=== PATIENT | female | born 1940 | race Caucasian/White ===

== ENCOUNTER 2019-07-19 21:25 | Inpatient (IN) | payer OTHER, BC ==
--- NOTE | 2019-07-19 21:35 | PDOC ---
History of Present Illness - General Stated Complaint: HIP INJURY Time Seen by Provider: 07/19/19 21:34 - History of Present Illness Initial Comments: 07/19/19 22:50 79y/o F hx of HTN, chronic pain, lumbar stenosis, osteoporosis presents to the ER after a fall around 8pm this evening. She was going down the stairs when she slipped on the last stair and fell to the floor on her left side. She reports pain in her left buttock. Pain is exacerbated by movement and relieved with lying still. She did not ambulate after the event, and reports that was due to pain. She is unsure if she hit her head. but there was no LOC. She was brought in by EMS. She dizziness or lightheadedness preceding the event. After event, denies any nausea, vomiting,bowel or bladder incontinence, headache, numbness, tingling or spinal tenderness. Past History - Past Medical History Allergies/Adverse Reactions: Allergies Allergy/AdvReac Type Severity Reaction Status Date / Time No Known Allergies Allergy Verified 07/19/19 21:53 Home Medications: Ambulatory Orders Cholestyramine/Aspartame [Cholestyramine Light Packet] 4 gm PO DAILY 07/20/19 Cyclobenzaprine HCl 10 mg PO TID 07/20/19 Hydrochlorothiazide 50 mg PO DAILY 07/20/19 Hydrocodone/Acetaminophen [[place] 5-325 Tablet] 1 each PO QID PRN 07/20/19 Lisinopril [Prinivil] 10 mg PO DAILY 07/20/19 Meclizine HCl 12.5 mg PO TID 07/20/19 Metoprolol Succinate [Toprol Xl] 25 mg PO DAILY 07/20/19 Raloxifene HCl 60 mg PO DAILY 07/20/19 Rosuvastatin Calcium [Crestor] 5 mg PO DAILY 07/20/19 Zolpidem Tartrate 10 mg PO HS 07/20/19 Review of Systems - Review of Systems Constitutional: No: Chills, Fever HEENTM: No: Eye Pain, Blurred Vision Respiratory: No: Cough, Shortness of Breath Cardiac (ROS): No: Chest Pain, Lightheadedness ABD/GI: No: Nausea, Vomiting : No: Burning, Dysuria Musculoskeletal: Yes: Joint Pain, Muscle Pain Integumentary: No: Bruising, Change in Color Neurological: No: Headache, Numbness Hematologic/Lymphatic: No: Blood Clots, Easy Bleeding *Physical Exam - Physical Exam Comments: 07/19/19 23:17 GENERAL: Awake, alert, and fully oriented,uncomfortable HEAD: No signs of trauma, normocephalic, atraumatic EYES: PERRLA, EOMI, sclera anicteric, conjunctiva clear ENT: Auricles normal inspection, hearing grossly normal, nares patent, oropharynx clear without exudates. Moist mucosa NECK: Normal ROM, supple, no lymphadenopathy, JVD, or masses LUNGS: No distress, speaks full sentences, clear to auscultation bilaterally HEART: Regular rate and rhythm, normal S1 and S2, no murmurs, rubs or gallops, peripheral pulses normal and equal bilaterally. ABDOMEN: Soft, nontender, normoactive bowel sounds. No guarding, no rebound. No masses EXTREMITIES : Normal inspection,both lower extremities the same length. pelvis stable. tenderness to palpation of left buttock . Rectal tone present, no perianal anesthesia. peripheral pedal pulses bilaterally. sensation intact. straight leg raise more difficult on left side. NEUROLOGICAL: Cranial nerves II through XII grossly intact. Normal speech, SKIN: Warm, Dry, normal turgor, no rashes or lesions noted ED Treatment Course - LABORATORY CBC & Chemistry Diagram: 07/20/19 02:10 07/20/19 02:10 Medical Decision Making - Medical Decision Making 07/19/19 22:58 79y/o F hx of HTN, chronic pain, lumbar stenosis, osteoporosis presents to the ER after a fall around 8pm this evening. likely mechanical fall. pt. unsure of head strike. evaluate for possible fracture as well as hemorrhage on head CT. Ct head and c-spine w/o contrast hip,pelvis and femur x-ray Lidoderm patch for buttock pain. 07/20/19 00:11 PT signed out to Dr. Montes hip and pelvis x-rays reviewed, no obvious fracture noted (official read pending ) CT pending. reevaluate pain and patients ability to go home. 07/20/19 12:17 Discharge - Discharge Information Problems reviewed: Yes Clinical Impression/Diagnosis: Fall (on) (from) other stairs and steps, initial encounter, Fracture of pubic ramus, Inability to ambulate due to hip Condition: Stable - Admission No - Follow up/Referral - Patient Discharge Instructions - Post Discharge Activity
--- NOTE | 2019-07-19 21:46 | PDOC ---
Attending Attestation - Resident Resident Name: Erin Moss - ED Attending Attestation I have performed the following: I have examined & evaluated the patient, The case was reviewed & discussed with the resident, I agree w/resident's findings & plan - HPI HPI: 07/19/19 23:06 Pt missed the last step at her daughter's home, and she fell onto her left hip; she has left posterior hip pain. This happened after dinner; she had eaten turkey. Pt doesn't recall hitting her head or neck, however she cannot be sure. Also she states that 2 years ago she had a kyphoplasty. Pt is afebrile. She is able to move all extremities. She has 4/5 weakness in her legs bilaterally. - Physicial Exam PE: 07/19/19 23:13 Pt has normal heart and lung exam. Abd soft NT ND No tenderness with palpation over her pubic bone She has pain at the left hip She has mild pain with ranging her left leg at the hip - Medical Decision Making 07/20/19 00:20 Patient Name: JACINTA VICENTE THIS IS A PRELIMINARY REPORT FROM [facility] DATE OF SERVICE: 2019-07-19 23:00:26 IMAGES: 4 EXAM: X-RAY LEFT HIP Acute minimally displaced fractures left inferior and superior pubic rami. Left femoral neck evaluation somewhat limited by artifact from overlying clothing/drapery. No dislocation. 07/20/19 00:51 If pt can ambulate, we will send her home with her daughter and . If she cannot, we will admit. Head CT and ct cervical spine are pending. 07/20/19 01:30 Patient Name: JACINTA VICENTE THIS IS A PRELIMINARY REPORT FROM [facility] DATE OF SERVICE: 2019-07-20 00:38:26 IMAGES: [id number] EXAM: CT CERVICAL SPINE WITHOUT CONTRAST No acute fracture or traumatic malalignment. Multilevel spondylosis. Straightening of cervical lordosis, possibly due to positioning or muscle spasm. Scarring lung apices 07/20/19 01:31 Patient Name: JACINTA VICENTE THIS IS A PRELIMINARY REPORT FROM [facility] DATE OF SERVICE: 2019-07-20 00:45:11 IMAGES: [id number] EXAM: CT HEAD WITHOUT CONTRAST No acute hemorrhage, mass or acute territorial infarct. Atrophy and chronic small vessel ischemic changes. No skull fracture. Clear visualized paranasal sinuses. Visualized mastoid air cells chirag 07/20/19 01:44 Pt unable to abduct her left leg; she is having pain in the posterior hip; pt is unable to get up ; far from being able to ambulate. Pt will be admitted for further eval by ortho, and she may require further imaging of her hip 07/20/19 01:45 Pt is complaining about urinary bladder "spasm" she cannot use a bedpan and she is requesting a ramirez catheter.
[2019-07-19] MEDS ORDERED: LIDOCAINE 5% TOPICAL PATCH TP ONE (22:41)
[2019-07-19] MEDS ORDERED: LIDOCAINE 5% TOPICAL PATCH ONE (22:56)
[2019-07-19] MEDS: LIDOCAINE PATCH REMOVAL MC SCH (22:59)
--- NOTE | 2019-07-20 00:08 | PDOC ---
*Physical Exam - Vital Signs Last Vital Signs Temp Pulse Resp BP Pulse Ox 98.3 F 96 H 18 118/62 98 07/19/19 21:48 07/19/19 21:48 07/19/19 21:48 07/19/19 21:48 07/19/19 21:48 ED Treatment Course - LABORATORY CBC & Chemistry Diagram: 07/20/19 02:10 07/20/19 02:10 - Medications Given in the ED: ED Medications Discontinued Medications Generic Name Dose Route Start Last Admin Trade Name Freq PRN Reason Stop Dose Admin Lidocaine 1 patch 07/19/19 22:41 07/19/19 22:59 Lidoderm Patch - TP 07/19/19 22:42 1 patch ONCE ONE Administration Medical Decision Making - Medical Decision Making 07/20/19 00:04 79yo F hx HTN, chronic back pain, lumbar stenosis, osteoporosis, frequent falls on chronic vicodin and ambien, presents to the ER after mechanical fall at approx 2000 today. Neurologically intact, extremities neurovascularly intact, no s/s of syncope or seizure, no midline TTP, unable to ambulate (baseline ambulates w/o assistance). Pending XRs L femur/pelvis/hips, CTH/c-spine and pain management with lidoderm patch on buttocks (already took 4 percocets today PRN for chronic pain) and ambulation test > dispo. PCP - in [place] ([place]). Pt seen and assessed at bedside. 07/20/19 00:53 Official reads XRs: Acute minimally displaced fractures left inferior and superior pubic rami. Left femoral neck evaluation somewhat limited by artifact from overlying clothing/drapery. No dislocation. Pt in CT. 07/20/19 01:49 CTH/c-spine reviewed: no acute pathology Unable to get up or ambulate. In pain. Will admit for fx, pain control, and inability to ambulate. May need ortho eval and/or further imaging. Microblog sent. 07/20/19 01:56 Signed out to admitting team. Admission orders (labs, EKG) placed. Discharge - Discharge Information Problems reviewed: Yes Clinical Impression/Diagnosis: Fall (on) (from) other stairs and steps, initial encounter, Fracture of pubic ramus, Inability to ambulate due to hip Condition: Stable - Admission Yes - Follow up/Referral - Patient Discharge Instructions - Post Discharge Activity
[2019-07-20] MEDS ORDERED: SODIUM CHLORIDE 0.9% 500 ML INFUS.BAG IV ONE (01:50)
--- NOTE | 2019-07-20 02:11 | HP ---
CHIEF COMPLAINT: Hip Fracture HISTORY OF PRESENT ILLNESS: This is a 79 y/o woman w/ HTN, chronic back pain, lumbar stenosis, osteoporosis, frequent falls (last one in 2017 requiring vertebroplasty sx), on chronic opiates and ambien presented to hospital s/p witnessed mechanical fall at her daughters house after their thanksgiving meal, at approximately 8:00pm. Pt states she missed a step and fell on her hip due to not wearing her glasses. She now has left buttock pain and bladder spasms, so much that she requires a ramirez because she failed bed meyers trial. Pt notes having a hx of not being able to tolerate statins due to myalgia and that her leg cramps she experiences responds to tonic water with quinidine. In the emergency room, pt's extremities were reported to be neurovascularly intact. ER course was notable for: (1)Acute minimally displaced fractures left inferior and superior pubic rami. Left femoral neck evaluation somewhat limited by artifact from overlying clothing/drapery. No dislocation. (2) CT c-spine: no acute pathology (3) wbc-12.5 Social History: Smoking: denies Alcohol:denies Drugs: denies Allergies: No Known Allergies Allergy (Verified 07/19/19 21:53) REVIEW OF SYSTEMS: Negative except whats in HPI PHYSICAL EXAMINATION: Vital Signs - 24 hr 07/19/19 21:48 Temperature 98.3 F Pulse Rate 96 H Respiratory 18 Rate Blood Pressure 118/62 O2 Sat by Pulse 98 Oximetry (%) GENERAL: Awake, alert, and fully oriented, in no acute distress. LUNGS: Breath sounds equal, clear to auscultation bilaterally. No wheezes, and no crackles. No accessory muscle use. HEART: Regular rate and rhythm, normal S1 and S2 without murmur, rub or gallop. ABDOMEN: Soft, nontender, not distended, normoactive bowel sounds, no guarding, no rebound, no masses. No hepatomegaly or splenomegaly. LOWER EXTREMITIES: Rt butock tenderness, pt unable to move either lower extremity much in any direction due to pain, 2+ pulses, warm, well-perfused. No calf tenderness. No peripheral edema. PSYCHIATRIC: Cooperative. Good eye contact. Appropriate mood and affect. SKIN: Warm, dry, normal turgor, no rashes or lesions noted. ASSESSMENT/PLAN: This is a 79 y/o woman w/ HTN, chronic back pain, lumbar stenosis, osteoporosis , frequent falls (last one in 2017 requiring vertebroplasty sx), on chronic opiates and ambien presented to hospital s/p witnessed mechanical fall at her daughters house after their thanksgiving meal, at approximately 8:00pm. #Pubic rami fracture 2/2 witnessed fall - doubt syncope/vasovagal/orthostatic - Pelvic XR- Acute minimally displaced fractures left inferior and superior pubic rami. Left femoral neck evaluation somewhat limited by artifact from overlying clothing/drapery. No dislocation. - CT pelvis ordered due to pt complaining of pain in her left buttock. - CT c-spine reviewed: no acute pathology - Bedrest and fall precautions - Tylenol p.o. as needed for pain -Orthopedics consulted (Dr. Corral) for repair of fractures. - Physical therapy evaluation for gait assessment - Would hold opiates and benzos at this time - Futile to check orthostatics given fluids administered #Leukocytosis 2/2 fall coupled with it being reactive - afebrile, pt did endorse increased frequency and urgency so possible UTI however pt is on a high dose of diuretic - Monitor WBC off antibiotics at this time - UA culture and CXR to assess for source of infection - UA pending - will rpt it and assess - Heparin 5K TID SQ for DVT prophylaxis Visit type - Emergency Visit Emergency Visit: Yes ED Registration Date: 07/20/19 Care time: The patient presented to the Emergency Department on the above date and was hospitalized for further evaluation of their emergent condition. - New Patient This patient is new to me today: Yes Date on this admission: 07/22/19 - Critical Care Critical Care patient: No ATTENDING PHYSICIAN STATEMENT I saw and evaluated the patient. I reviewed the resident's note and discussed the case with the resident. I agree with the resident's findings and plan as documented. SUBJECTIVE: OBJECTIVE: ASSESSMENT AND PLAN:
[2019-07-20 02:18] LABS: BASO % 0.7 % (0-2.0); EOS % 0.2 % (0-4.5); HEMATOCRIT 32.4 % (32.4-45.2); HEMOGLOBIN 10.9 GM/dL (10.7-15.3); LYMPH % 7.8 % (8-40); MCH 33.4 pg (25.7-33.7); MCHC 33.7 g/dl (32.0-36.0); MEAN CELL VOLUME 99.2 fl (80-96); MEAN PLT VOLUME 6.8 fl (7.5-11.1); MONO % 5.7 % (3.8-10.2); NEUT % 85.6 % (42.8-82.8); PLATELET COUNT 219 K/MM3 (134-434); RBC 3.27 M/mm3 (3.60-5.2); RDW 14.1 % (11.6-15.6); WHITE BLOOD COUNT 12.5 K/mm3 (4.0-10.0)
[2019-07-20 02:37] LABS: ALBUMIN 3.4 g/dl (3.4-5.0); BILIRUBIN,TOTAL 0.1 mg/dL (0.2-1); BLOOD UREA NITROGEN 26.2 mg/dL (7-18); CALCIUM 8.7 mg/dL (8.5-10.1); CREATININE 1.1 mg/dL (0.55-1.3); POTASSIUM 3.8 mmol/L (3.5-5.1); TOT PROT 5.9 g/dl (6.4-8.2)
--- NOTE | 2019-07-20 03:35 | PN ---
Teaching Attending Note Name of Resident: Michael Herrera ATTENDING PHYSICIAN STATEMENT I saw and evaluated the patient. I reviewed the resident's note and discussed the case with the resident. I agree with the resident's findings and plan as documented. SUBJECTIVE: 79yo woman w/ HTN, chronic back pain, lumbar stenosis, osteoporosis, frequent falls, on chronic opiates and ambien presented to hospital after mechanical fall which occurred at approximately 2000 hrs. on 07/19/2019. Patient reported that she was climbing a flight of stairs and she missed one step and fell and landed on her buttocks. Denied any head trauma or LOC. OBJECTIVE: Last Vital Signs Temp Pulse Resp BP Pulse Ox 98.3 F 96 H 18 118/62 98 07/19/19 21:48 07/19/19 21:48 07/19/19 21:48 07/19/19 21:48 07/19/19 21:48 GENERAL: well nourished. Awake and alert. No acute distress. Frail, elderly HEENT: Normocephalic, atraumatic. PERRLA, EOMI. No conjunctival pallor. Sclera are non- icteric. Moist mucous membranes. Oropharynx is clear. NECK: Supple. Full ROM. No JVD. Carotid pulses 2+ and symmetric, without bruits. No thyromegaly. No lymphadenopathy. CARDIOVASCULAR: Regular rate and rhythm. No murmurs, rubs, or gallops. Distal pulses are 2+ and symmetric. PULMONARY: No evidence of respiratory distress. Lungs clear to auscultation bilaterally. No wheezing, rales or rhonchi. ABDOMINAL: Soft. Non-tender. Non-distended. No rebound or guarding. No organomegaly. Normoactive bowel sounds. MUSCULOSKELETAL Normal range of motion at all joints. No bony deformities or tenderness. No CVA tenderness. EXTREMITIES: No cyanosis. No clubbing. No edema. No calf tenderness. Lower extremities bilaterally are warm and sensation is grossly intact SKIN: Warm and dry. Normal capillary refill. No rashes. No jaundice. NEUROLOGICAL: Alert, awake, appropriate. Cranial nerves 2-12 intact. No deficits to light touch and temperature in face, upper extremities and lower extremities. No motor deficits in the in face, upper extremities and lower extremities. Normoreflexic in the upper and lower extremities. Normal speech. Toes are down- going bilaterally. Gait is normal without ataxia. PSYCHIATRIC: Cooperative. Good eye contact. Appropriate mood and affect. Abnormal Lab Results 07/20/19 07/20/19 02:10 02:10 WBC 12.5 H RBC 3.27 L MCV 99.2 H MPV 6.8 L Absolute Neuts (auto) 10.7 H Neutrophils % 85.6 H Lymphocytes % 7.8 L Anion Gap 5 L BUN 26.2 H Random Glucose 142 H Total Bilirubin 0.1 L Alkaline Phosphatase 28 L Total Protein 5.9 L Imaging reviewed Official reads XRs: Acute minimally displaced fractures left inferior and superior pubic rami. Left femoral neck evaluation somewhat limited by artifact from overlying clothing/drapery. No dislocation. CT -H/c-spine reviewed: no acute pathology ASSESSMENT AND PLAN: 79-year-old woman status post fall with acute minimally displaced fractures left inferior and superior pubic rami. Unable to ambulate at this time. Suspect that frequent falls may be secondary to Worsening of underlying spinal stenosis versus Versus mechanical fall versus taking opiates and benzos chronically especially given her advanced age would make her more susceptible to the sedatives, increased ataxia and risk for falls. MedSurg Bedrest and fall precautions Tylenol p.o. as needed for pain Pelvis CT to ensure no occult fractures have been missed Orthopedics evaluation for rami fractures Physical therapy evaluation for gait assessment Would stop opiates and benzos at this time Check orthostatics Follow-up official reads for imaging studies performed in ER including head CT, hip and pelvis x-ray, femur x-ray. #Leukocytosismay be secondary to fall and may be reactive Monitor WBC off antibiotics at this time Heparin subcutaneously for DVT prophylaxis
[2019-07-20] MEDS ORDERED: ACETAMINOPHEN 325 MG TABLET (FP) PO PRN (03:50)
[2019-07-20] MEDS ORDERED: HEPARIN NA (PORCINE) 5,000 UNITS/ML 1ML VIAL SQ SCH (06:00)
[2019-07-20] MEDS ORDERED: HEPARIN NA (PORCINE) 5,000 UNITS/ML 1ML VIAL ONE (06:25)
[2019-07-20 07:12] LABS: URINE APPEARANCE CLEAR; URINE BILIRUBIN NEGATIVE (NEGATIVE); URINE COLOR YELLOW; URINE GLUCOSE (UA) NEGATIVE (NEGATIVE); URINE KETONE NEGATIVE (NEGATIVE); URINE LEUK ESTERASE NEGATIVE (NEGATIVE); URINE NITRITE NEGATIVE (NEGATIVE); URINE PROTEIN NEGATIVE (NEGATIVE); URINE UROBILINOGEN 0.2 mg/dL (0.2-1.0)
[2019-07-20] MEDS ORDERED: HYDROCHLOROTHIAZIDE 50 MG TABLET PO SCH (10:00)
[2019-07-20] MEDS ORDERED: ENOXAPARIN NA (PORCINE) 40 MG/0.4 ML DISP.SYRIN SQ SCH (10:00)
[2019-07-20] MEDS: metoPROLOL SUCCINATE 25 MG TAB.SR.24H (FP) PO SCH (10:20)
[2019-07-20] MEDS: LISINOPRIL 10 MG TABLET (FP) PO SCH (10:20)
[2019-07-20] MEDS ORDERED: [UNRECOGNIZED DRUG - OTHER] PO PRN (10:36)
[2019-07-20] MEDS ORDERED: ACETAMINOPHEN PO PRN (10:36)
[2019-07-20] MEDS ORDERED: HYDROCODONE PO PRN (10:36)
[2019-07-20] MEDS ORDERED: ACETAMINOPHEN 325 MG TABLET (FP) ONE (12:58)
[2019-07-20] MEDS ORDERED: oxyCODONE HCL 5 MG TABLET ONE (12:59)
--- NOTE | 2019-07-20 13:05 | PN ---
Physical Exam: SUBJECTIVE: Patient seen and examined at the bedside. States that she has pain in her left hip but otherwise in good spirits. Denied any prodromal symptoms before her fall, no diaphoresis, chest pain, palpitations, lightheadedness, dizziness, visual changes. Currently denies cp, sob, abd pain, n/v/c/d, fever, chills. OBJECTIVE: Vital Signs Period Temp Pulse Resp BP Sys/Martinez Pulse Ox Last 24 Hr 98 F-98.3 F 96-113 18-18 109-118/62-75 98-99 GENERAL: The patient is awake, alert, and fully oriented, in no acute distress. HEAD: Normal with no signs of trauma. EYES: PERRL, extraocular movements intact, sclera anicteric, conjunctiva clear. No ptosis. NECK: Trachea midline, full range of motion, supple. LUNGS: Breath sounds equal, clear to auscultation bilaterally, no wheezes, no crackles, no accessory muscle use. HEART: Regular rate and rhythm, S1, S2 without murmur, rub. ABDOMEN: Soft, nontender, nondistended, normoactive bowel sounds, no guarding, no rebound, no masses. EXTREMITIES: 2+ pulses, warm, well-perfused, no edema. NEUROLOGICAL: Cranial nerves II through XII grossly intact. Decreased strength on the LLE in flexion/extension, rotation, secondary to pain. No sensory deficits. PSYCH: Normal mood, normal affect. SKIN: Warm, dry, normal turgor, no rashes or lesions noted Laboratory Results - last 24 hr 07/20/19 07/20/19 07/20/19 02:10 02:10 06:30 WBC 12.5 H RBC 3.27 L Hgb 10.9 Hct 32.4 MCV 99.2 H MCH 33.4 MCHC 33.7 RDW 14.1 Plt Count 219 MPV 6.8 L Absolute Neuts (auto) 10.7 H Neutrophils % 85.6 H Lymphocytes % 7.8 L Monocytes % 5.7 Eosinophils % 0.2 Basophils % 0.7 Nucleated RBC % 0 Sodium 140 Potassium 3.8 Chloride 107 Carbon Dioxide 28 Anion Gap 5 L BUN 26.2 H Creatinine 1.1 Est GFR (CKD-EPI)AfAm 56.08 Est GFR (CKD-EPI)NonAf 48.39 Random Glucose 142 H Calcium 8.7 Total Bilirubin 0.1 L AST 25 ALT 27 Alkaline Phosphatase 28 L Total Protein 5.9 L Albumin 3.4 Urine Color Yellow Urine Appearance Clear Urine pH 5.0 Ur Specific [place]joy 1.014 Urine Protein Negative Urine Glucose (UA) Negative Urine Ketones Negative Urine Blood Negative Urine Nitrite Negative Urine Bilirubin Negative Urine Urobilinogen 0.2 Ur Leukocyte Esterase Negative Active Medications Generic Name Dose Route Start Last Admin Trade Name Freq PRN Reason Stop Dose Admin Acetaminophen 650 mg 07/20/19 03:50 Tylenol - PO Q6H PRN Fever Acetaminophen 325 mg 07/20/19 10:47 Tylenol - PO Q6H PRN PAIN 1-5 Cholestyramine Resin 4 gm 07/21/19 10:00 Questran Light Packet - PO DAILY NINA Cyclobenzaprine HCl 10 mg 07/20/19 03:57 Flexeril - PO TID PRN MUSCLE SPASMS Heparin Sodium (Porcine) 5,000 unit 07/20/19 06:00 07/20/19 06:46 Heparin - SQ 5,000 unit TID NINA Administration Lisinopril 10 mg 07/20/19 10:00 07/20/19 10:20 Prinivil PO 10 mg DAILY NINA Administration Meclizine HCl 12.5 mg 07/20/19 14:00 Antivert - PO TID NINA Metoprolol Succinate 25 mg 07/20/19 10:00 07/20/19 10:20 Toprol Xl - PO 25 mg DAILY NINA Administration Miscellaneous 1 each 07/19/19 22:00 07/19/19 22:59 Lidoderm Patch Removal MC 1 each DAILY@2200 NINA Administration Non-Formulary Medication 60 mg 07/20/19 10:00 Raloxifene Hcl [Raloxifene Hcl] PO DAILY NINA Oxycodone HCl 5 mg 07/20/19 10:47 Roxicodone - PO Q6H PRN PAIN 1-5 Rosuvastatin Calcium 5 mg 07/20/19 22:00 Crestor - PO HS NINA Zolpidem Tartrate 5 mg 07/20/19 22:00 Ambien - PO HS PRN INSOMNIA ASSESSMENT/PLAN: Connie Red is a 79 year old woman with a past medical history of HTN, chronic back pain, lumbar stenosis, osteoporosis, frequent falls (last one in 2017 requiring vertebroplasty sx), on chronic opiates and ambien admitted after witnessed mechanical fall resulting in L pubic ramus fracture. Pubic rami fracture - Pelvic XR- Acute minimally displaced fractures left inferior and superior pubic rami. Left femoral neck evaluation somewhat limited by artifact from overlying clothing/drapery. No dislocation. - CT pelvis showing a comminuted fracture through the medical portion of the L pubic ramus near the symphysis pubis and hyperdense soft tissue mass superior and to the right of the fracture suspicious for a hematoma - CT head and c-spine reviewed: no acute pathology - Bedrest and fall precautions - resume home oxycodone/tylenol for pain - Orthopedics consulted, Dr. Calvo for evaluation, recommending PT, weight bearing as tolerated, pain management, SNF placement, DVT prophylaxis (aspirin) for 6 weeks, and to follow up with orthopedist in 2 weeks - Physical therapy recommending continued PT at rehabilitation facility. Patient only able to ambulate 5ft. Leukocytosis - likely reactive to fall and fracture - afebrile, continue to monitor temp and WBC off abx - UA negative - CXR with no acute pathology HTN - resume home lisinopril, HCTZ, metoprolol HLD - resume home Crestor - continue home cholestyramine Chronic Back Pain - continue home pain medications and home flexeril DVT PPX - SCDs, stopped heparin due to hematoma Dispo - continue to monitor on Med-surg - will likely need SNF for rehab, patient wants to return back to [place] for SNF Visit type - Emergency Visit Emergency Visit: Yes ED Registration Date: 07/20/19 Care time: The patient presented to the Emergency Department on the above date and was hospitalized for further evaluation of their emergent condition. - New Patient This patient is new to me today: Yes Date on this admission: 07/20/19 - Critical Care Critical Care patient: No
[2019-07-20] MEDS: oxyCODONE HCL 5 MG TABLET PO PRN (13:15)
[2019-07-20] MEDS: ACETAMINOPHEN 325 MG TABLET (FP) PO PRN (13:16)
[2019-07-20] MEDS: MECLIZINE HCL 12.5 MG TABLET PO SCH ×2 (13:41→21:45)
--- NOTE | 2019-07-20 14:12 | EKG ---
Test Reason : Blood Pressure : / mmHG Vent. Rate : 102 BPM Atrial Rate : 102 BPM P-R Int : 130 ms QRS Dur : 078 ms QT Int : 338 ms P-R-T Axes : 063 -30 011 degrees QTc Int : 440 ms SINUS TACHYCARDIA POSSIBLE LEFT ATRIAL ENLARGEMENT INCOMPLETE RBBB NONSPECIFIC ST ABNORMALITY LEFT AXIS DEVIATION LOW VOLTAGE QRS ABNORMAL ECG NO PREVIOUS ECGS AVAILABLE Confirmed by CARO TREVINO MD ([id number]) on 07/20/2019 2:12:29 PM Referred By: Confirmed By:CARO TREVINO MD
--- NOTE | 2019-07-20 15:10 | PN ---
Progress Note (short form) - Note Progress Note: Pt seen and examined in the ER. She is a 79 year old female patient 1 day s/p fall at her daughter's home. She fell onto her buttocks, and c/o pain in the left hemipelvis area and groin, and cannot bear weight or ambulate. She is otherwise healthy. AVAA PE Pt in NAD. B/L LE are NVI, with good ROM and little pain at the foot, ankle, knees. Minimal pain with logrolling the left LE No swelling, no ecchymosis, appears quite benign Xrays Show a comminuted, left superior and inferior pubic rami fractures just lateral to the pubic symphysis Imp Acute. left pubic rami fractures Rec Physical therapy ESHA, WBAT B/L LE Pain management Likely DC to a SNF (in [place]) DVT prohylaxis for 6 weeks. She can be put on ASA 81mg daily once DC'd F/U with an orthopedist in 2 weeks
--- NOTE | 2019-07-20 17:37 | PN ---
Teaching Attending Note Name of Resident: Den Viramontes ATTENDING PHYSICIAN STATEMENT I saw and evaluated the patient. I reviewed the resident's note and discussed the case with the resident. I agree with the resident's findings and plan as documented. SUBJECTIVE: Complains of pelvic pain, worse on Left. No fever/chills/CP/SOB. Mechanical fall (missed a step, no HI/LOC) OBJECTIVE: Afebrile, hemodynamically Stable. Last Vital Signs Temp Pulse Resp BP Pulse Ox 98.9 F 103 H 18 88/60 L 98 07/20/19 16:43 07/20/19 16:43 07/20/19 16:43 07/20/19 16:43 07/20/19 16:43 HEENT - Atraumatic, Normocephalic. Heart - S1, S2, RRR Lungs - clear to auscultation Abdomen - Soft, non-tender. Bowel Sounds normal. Extremities - venous stasis, no calf tenderness, reduced ROM about L hip due to pain. Neurovascularly intact. Laboratory Results - last 24 hr 07/20/19 07/20/19 07/20/19 02:10 02:10 06:30 WBC 12.5 H RBC 3.27 L Hgb 10.9 Hct 32.4 MCV 99.2 H MCH 33.4 MCHC 33.7 RDW 14.1 Plt Count 219 MPV 6.8 L Absolute Neuts (auto) 10.7 H Neutrophils % 85.6 H Lymphocytes % 7.8 L Monocytes % 5.7 Eosinophils % 0.2 Basophils % 0.7 Nucleated RBC % 0 Sodium 140 Potassium 3.8 Chloride 107 Carbon Dioxide 28 Anion Gap 5 L BUN 26.2 H Creatinine 1.1 Est GFR (CKD-EPI)AfAm 56.08 Est GFR (CKD-EPI)NonAf 48.39 Random Glucose 142 H Calcium 8.7 Total Bilirubin 0.1 L AST 25 ALT 27 Alkaline Phosphatase 28 L Total Protein 5.9 L Albumin 3.4 Urine Color Yellow Urine Appearance Clear Urine pH 5.0 Ur Specific [place] 1.014 Urine Protein Negative Urine Glucose (UA) Negative Urine Ketones Negative Urine Blood Negative Urine Nitrite Negative Urine Bilirubin Negative Urine Urobilinogen 0.2 Ur Leukocyte Esterase Negative Current Medications Generic Name Dose Route Start Last Admin Trade Name Freq PRN Reason Stop Dose Admin Acetaminophen 650 mg 07/20/19 03:50 Tylenol - PO Q6H PRN Fever Acetaminophen 325 mg 07/20/19 10:47 07/20/19 13:16 Tylenol - PO 325 mg Q6H PRN Administration PAIN 1-5 Cholestyramine Resin 4 gm 07/21/19 10:00 Questran Light Packet - PO DAILY [facility] Cyclobenzaprine HCl 10 mg 07/20/19 03:57 Flexeril - PO TID PRN MUSCLE SPASMS Lisinopril 10 mg 07/20/19 10:00 07/20/19 10:20 Prinivil PO 10 mg DAILY NINA Administration Meclizine HCl 12.5 mg 07/20/19 14:00 07/20/19 13:41 Antivert - PO Not Given TID [facility] Metoprolol Succinate 25 mg 07/20/19 10:00 07/20/19 10:20 Toprol Xl - PO 25 mg DAILY NINA Administration Miscellaneous 1 each 07/19/19 22:00 07/19/19 22:59 Lidoderm Patch Removal MC 1 each DAILY@2200 [facility] Administration Non-Formulary Medication 60 mg 07/20/19 10:00 Raloxifene Hcl [Raloxifene Hcl] PO DAILY [facility] Oxycodone HCl 5 mg 07/20/19 10:47 07/20/19 13:15 Roxicodone - PO 5 mg Q6H PRN Administration PAIN 1-5 Rosuvastatin Calcium 5 mg 07/20/19 22:00 Crestor - PO HS NINA Zolpidem Tartrate 5 mg 07/20/19 22:00 Ambien - PO HS PRN INSOMNIA Home Medications Medication Instructions Recorded Aspirin 81 mg PO DAILY #42 tab.chew 07/20/19 Cholestyramine/Aspartame 4 gm PO DAILY 07/20/19 [Cholestyramine Light Packet] Cyclobenzaprine HCl 10 mg PO TID 07/20/19 Hydrochlorothiazide 50 mg PO DAILY 07/20/19 Hydrocodone/Acetaminophen [[place] 1 each PO QID PRN 07/20/19 5-325 Tablet] Lisinopril [Prinivil] 10 mg PO DAILY 07/20/19 Meclizine HCl 12.5 mg PO TID 07/20/19 Metoprolol Succinate [Toprol Xl] 25 mg PO DAILY 07/20/19 Raloxifene HCl 60 mg PO DAILY 07/20/19 Rosuvastatin Calcium [Crestor] 5 mg PO DAILY 07/20/19 Zolpidem Tartrate 10 mg PO HS 07/20/19 ASSESSMENT AND PLAN: 79 year old female with chronic back pain, lumbar stenosis, osteoporosis, frequent falls, on chronic opiates and ambien presents after mechanical fall, missing a step and landing on her hip. No head injury/LOC. No preceding CP/ palpitations/lightheadedness. Hip XR - Acute minimally displaced fractures left inferior and superior pubic rami. Left femoral neck evaluation somewhat limited by artifact from overlying clothing/drapery. No dislocation. CT Head - no acute intracranial findings CT C Spine - no bony inury, DJD. CT Pelvis - comminuted fractures through pubic ramus/pubis symphysis, possible associated hematoma. 1. Acute Pelvic Fractures s/p mechanical fall Seen by Ortho - recommend PT, WBAT, DVT Px 6 weeks, Ortho follow up 2 weeks. resumd on home oxycodone regimen. PT Discussed with CM re:SNF/Acute Rehab placement. 2. HTN - Hold HCTZ - can lead to orthostasis and falls in the elderly. Continue Metoprolol, Lisinopril 3. HLD - on Crestor. 4. Chronic Back Pain - on opiates chronically along with Flexeril and Zolpidem. DVT Px - SCDs for now given possible hematoma on CT. Will discuss DVT Px regimen with Ortho.
[2019-07-20] MEDS: LIDOCAINE PATCH REMOVAL MC SCH (21:44)
[2019-07-20] MEDS: ROSUVASTATIN CA 5 MG TABLET (FP) PO SCH (21:44)
[2019-07-21] MEDS: ZOLPIDEM TARTRATE 5 MG TABLET PO PRN ×2 (01:40→21:10)
[2019-07-21] MEDS: MECLIZINE HCL 12.5 MG TABLET PO SCH ×3 (06:31→21:11)
[2019-07-21] MEDS: ACETAMINOPHEN 325 MG TABLET (FP) PO PRN ×2 (08:08→16:17)
[2019-07-21] MEDS: oxyCODONE HCL 5 MG TABLET PO PRN ×2 (08:08→16:18)
[2019-07-21] MEDS ORDERED: PT OWN MED DRAWER 7, Y5N ONE (10:10)
[2019-07-21] MEDS: CYCLOBENZAPRINE HCL 10 MG TABLET (FP) PO PRN (10:20)
[2019-07-21] MEDS: LISINOPRIL 10 MG TABLET (FP) PO SCH (10:23)
[2019-07-21] MEDS: metoPROLOL SUCCINATE 25 MG TAB.SR.24H (FP) PO SCH (10:23)
[2019-07-21] MEDS: CHOLESTYRAMINE/ASPARTAME 4 GM PACKET PO SCH (10:28)
[2019-07-21 11:26] LABS: BASO % 0.1 % (0-2.0); EOS % 0.5 % (0-4.5); LYMPH % 12.2 % (8-40); MCH 33.1 pg (25.7-33.7); MCHC 33.2 g/dl (32.0-36.0); MEAN CELL VOLUME 99.9 fl (80-96); MEAN PLT VOLUME 7.4 fl (7.5-11.1); NEUT % 79.2 % (42.8-82.8); PLATELET COUNT 212 K/MM3 (134-434); RDW 14.2 % (11.6-15.6); WHITE BLOOD COUNT 10.6 K/mm3 (4.0-10.0)
[2019-07-21] MEDS ORDERED: SODIUM CHLORIDE 500 ML IV SCH (12:15)
--- NOTE | 2019-07-21 18:28 | PN ---
Progress Note (short form) - Note Progress Note: SUBJECTIVE: Complains of pelvic pain, worse on Left. No fever/chills/CP/SOB. OBJECTIVE: Afebrile, BP borderline, mild tachy Last Vital Signs Temp Pulse Resp BP Pulse Ox 99.1 F 110 H 18 95/64 98 07/21/19 17:20 07/21/19 17:20 07/21/19 17:20 07/21/19 17:20 07/20/19 21:00 Heart - S1, S2, RRR Lungs - clear to auscultation Abdomen - Soft, non-tender. Bowel Sounds normal. Extremities - venous stasis, no calf tenderness, reduced ROM about L hip due to pain. Neurovascularly intact. Laboratory Results - last 24 hr 07/21/19 10:50 WBC 10.6 H RBC 3.00 L Hgb 10.0 L Hct 30.0 L MCV 99.9 H MCH 33.1 MCHC 33.2 RDW 14.2 Plt Count 212 MPV 7.4 L Absolute Neuts (auto) 8.4 H Neutrophils % 79.2 Lymphocytes % 12.2 D Monocytes % 8.0 Eosinophils % 0.5 D Basophils % 0.1 Nucleated RBC % 0 Current Medications Generic Name Dose Route Start Last Admin Trade Name Freq PRN Reason Stop Dose Admin Acetaminophen 650 mg 07/20/19 03:50 Tylenol - PO Q6H PRN Fever Acetaminophen 325 mg 07/20/19 10:47 07/21/19 16:17 Tylenol - PO 325 mg Q6H PRN Administration PAIN 1-5 Cholestyramine Resin 4 gm 07/21/19 10:00 07/21/19 10:28 Questran Light Packet - PO Not Given DAILY NINA Cyclobenzaprine HCl 10 mg 07/20/19 03:57 07/21/19 10:20 Flexeril - PO 10 mg TID PRN Administration MUSCLE SPASMS Lisinopril 10 mg 07/20/19 10:00 07/21/19 10:23 Prinivil PO Not Given DAILY NINA Meclizine HCl 12.5 mg 07/20/19 14:00 07/21/19 13:42 Antivert - PO Not Given TID NINA Metoprolol Succinate 25 mg 07/20/19 10:00 07/21/19 10:23 Toprol Xl - PO Not Given DAILY [facility] Miscellaneous 1 each 07/19/19 22:00 07/20/19 21:44 Lidoderm Patch Removal MC 1 each DAILY@2200 NINA Administration Non-Formulary Medication 60 mg 07/20/19 10:00 Raloxifene Hcl [Raloxifene Hcl] PO DAILY NINA Oxycodone HCl 5 mg 07/20/19 10:47 07/21/19 16:18 Roxicodone - PO 5 mg Q6H PRN Administration PAIN 1-5 Rosuvastatin Calcium 5 mg 07/20/19 22:00 07/20/19 21:44 Crestor - PO Not Given HS NINA Zolpidem Tartrate 5 mg 07/20/19 22:00 07/21/19 01:40 Ambien - PO 5 mg HS PRN Administration INSOMNIA Home Medications Medication Instructions Recorded Aspirin 81 mg PO DAILY #42 tab.chew 07/20/19 Cholestyramine/Aspartame 4 gm PO DAILY 07/20/19 [Cholestyramine Light Packet] Cyclobenzaprine HCl 10 mg PO TID 07/20/19 Hydrochlorothiazide 50 mg PO DAILY 07/20/19 Hydrocodone/Acetaminophen [[place] 1 each PO QID PRN 07/20/19 5-325 Tablet] Lisinopril [Prinivil] 10 mg PO DAILY 07/20/19 Meclizine HCl 12.5 mg PO TID 07/20/19 Metoprolol Succinate [Toprol Xl] 25 mg PO DAILY 07/20/19 Raloxifene HCl 60 mg PO DAILY 07/20/19 Rosuvastatin Calcium [Crestor] 5 mg PO DAILY 07/20/19 Zolpidem Tartrate 10 mg PO HS 07/20/19 ASSESSMENT AND PLAN: 79 year old female with chronic back pain, lumbar stenosis, osteoporosis, frequent falls, on chronic opiates and ambien presents after mechanical fall, missing a step and landing on her hip. No head injury/LOC. No preceding CP/ palpitations/lightheadedness. Hip XR - Acute minimally displaced fractures left inferior and superior pubic rami. Left femoral neck evaluation somewhat limited by artifact from overlying clothing/drapery. No dislocation. CT Head - no acute intracranial findings CT C Spine - no bony inury, DJD. CT Pelvis - comminuted fractures through pubic ramus/pubis symphysis, possible associated hematoma. 1. Acute Pelvic Fractures s/p mechanical fall Seen by Ortho - recommend PT, WBAT, DVT Px 6 weeks, Ortho follow up 2 weeks. Resumed on home oxycodone regimen. PT Discussed with CM - awaiting SNF/Acute Rehab placement. 2. HTN - HCTZ held - can lead to orthostasis and falls in the elderly. BP borderline - Metoprolol, Lisinopril held. Will hydrate and re-evaluate. Stat CBC was drawn to exclude blood loss into fracture site - H/H stable. 3. HLD - on Crestor. 4. Chronic Back Pain - on opiates chronically along with Flexeril and Zolpidem. DVT Px - SCDs for now given possible hematoma on CT. Will discuss DVT Px regimen with Ortho. Visit type - Emergency Visit Emergency Visit: No - New Patient This patient is new to me today: No - Critical Care Critical Care patient: No - Discharge Referral Referred to [facility] Med P.C.: No
[2019-07-21] MEDS ORDERED: SODIUM CHLORIDE 1,000 ML IV SCH (18:45)
[2019-07-21] MEDS: DOCUSATE SODIUM 100 MG CAPSULE (FP) PO PRN (18:46)
[2019-07-21] MEDS: POLYETHYLENE GLYCOL 3350 119 GM BTL PO PRN (18:46)
--- NOTE | 2019-07-21 19:28 | PN ---
Progress Note (short form) - Note Progress Note: Pt seen and examined. She is doing well, less pain in bed, but having difficulty bearing any weight or ambulating. B/L LE still NVI. The plan is to Dc the pt to rehab, likely [facility]. She can f/u with us in 1-2 weeks
[2019-07-21] MEDS: ROSUVASTATIN CA 5 MG TABLET (FP) PO SCH (21:11)
[2019-07-21] MEDS: LIDOCAINE PATCH REMOVAL MC SCH (21:11)
[2019-07-22] MEDS: oxyCODONE HCL 5 MG TABLET PO PRN ×3 (03:27→17:01)
[2019-07-22] MEDS: MECLIZINE HCL 12.5 MG TABLET PO SCH ×3 (05:03→21:48)
[2019-07-22 08:51] LABS: BASO % 0.3 % (0-2.0); EOS % 0.4 % (0-4.5); HEMATOCRIT 25.3 % (32.4-45.2); HEMOGLOBIN 8.6 GM/dL (10.7-15.3); LYMPH % 10.6 % (8-40); MCH 33.8 pg (25.7-33.7); MEAN CELL VOLUME 99.4 fl (80-96); MEAN PLT VOLUME 7.4 fl (7.5-11.1); MONO % 8.9 % (3.8-10.2); NEUT % 79.8 % (42.8-82.8); PLATELET COUNT 182 K/MM3 (134-434); RBC 2.54 M/mm3 (3.60-5.2); WHITE BLOOD COUNT 10.4 K/mm3 (4.0-10.0)
[2019-07-22 09:08] LABS: BLOOD UREA NITROGEN 12.5 mg/dL (7-18); CALCIUM 7.7 mg/dL (8.5-10.1); CREATININE 0.7 mg/dL (0.55-1.3); POTASSIUM 3.4 mmol/L (3.5-5.1)
[2019-07-22] MEDS ORDERED: MAGNESIUM HYDROX 2400MG/30ML ORAL SUSPENSION 30 ML CUP PO ONE (09:35)
[2019-07-22] MEDS: metoPROLOL SUCCINATE 25 MG TAB.SR.24H (FP) PO SCH (10:31)
[2019-07-22] MEDS: LISINOPRIL 10 MG TABLET (FP) PO SCH (10:31)
[2019-07-22] MEDS: DOCUSATE SODIUM 100 MG CAPSULE (FP) PO PRN (10:31)
[2019-07-22] MEDS: CHOLESTYRAMINE/ASPARTAME 4 GM PACKET PO SCH (10:31)
[2019-07-22] MEDS: POLYETHYLENE GLYCOL 3350 119 GM BTL PO PRN (10:33)
--- NOTE | 2019-07-22 12:27 | PN ---
Physical Exam: SUBJECTIVE: Patient seen and examined at bedside. No acute events overnight. Pt states she has been having bladder spasms, but is able to urinate. Pain controlled but worse with movement. Tolerating PO, denies n/v, chest pain, sob, abd pain. OBJECTIVE: Vital Signs Temperature 98.8 F 07/22/19 09:00 Pulse Rate 110 H 07/22/19 09:00 Respiratory Rate 20 07/22/19 09:00 Blood Pressure 112/60 07/22/19 09:00 O2 Sat by Pulse Oximetry (%) 98 07/20/19 21:00 GENERAL: Pleasant, well-appearing elderly female. NAD. Cooperative. AAOx3. HEENT: AT/NC. EOMI. MMM. NECK: Trachea midline, full range of motion, supple. LUNGS: Breath sounds equal, clear to auscultation bilaterally, no wheezes, no crackles, no accessory muscle use. HEART: Regular rate and rhythm, S1, S2 without murmur, rub. ABDOMEN: Soft, nontender, nondistended, normoactive bowel sounds, no guarding, no rebound, no masses. EXTREMITIES: 2+ pulses, warm, well-perfused, no edema. NEUROLOGICAL: Cranial nerves II through XII grossly intact. Decreased strength on the LLE in flexion/extension, rotation, secondary to pain. No sensory deficits. PSYCH: Normal mood, normal affect. SKIN: Warm, dry, normal turgor, no rashes or lesions noted CBC, BMP 07/22/19 08:30 07/22/19 08:30 Active Medications Cholestyramine Resin (Questran Light Packet -) 4 gm PO DAILY COUNT [facility]CLUDES [facility] Last Admin: 07/22/19 10:31 Dose: Not Given Cyclobenzaprine HCl (Flexeril -) 10 mg PO TID PRN PRN Reason: MUSCLE SPASMS Last Admin: 07/21/19 10:20 Dose: 10 mg Docusate Sodium (Colace -) 100 mg PO BID PRN PRN Reason: CONSTIPATION Last Admin: 07/22/19 10:31 Dose: 100 mg Sodium Chloride (Normal Saline -) 1,000 mls @ 100 mls/hr IV ASDIR COUNT INCLUDES [facility] Last Admin: 07/21/19 18:46 Dose: 100 mls/hr Lisinopril (Prinivil) 10 mg PO DAILY [facility] Last Admin: 07/22/19 10:31 Dose: 10 mg Meclizine HCl (Antivert -) 12.5 mg PO TID [facility]CLUD[facility] Last Admin: 07/22/19 05:03 Dose: Not Given Metoprolol Succinate (Toprol Xl -) 25 mg PO DAILY [facility] Last Admin: 07/22/19 10:31 Dose: 25 mg Miscellaneous (Lidoderm Patch Removal) 1 each MC DAILY@2200 [facility] Last Admin: 07/21/19 21:11 Dose: Not Given Non-Formulary Medication (Raloxifene Hcl [Raloxifene Hcl]) 60 mg PO DAILY [facility] Oxycodone HCl (Roxicodone -) 5 mg PO Q6H PRN PRN Reason: PAIN 1-5 Last Admin: 07/22/19 10:31 Dose: 5 mg Polyethylene Glycol (Miralax (For Daily Use) -) 17 gm PO DAILY PRN PRN Reason: CONSTIPATION Last Admin: 07/22/19 10:33 Dose: 17 gm Rosuvastatin Calcium (Crestor -) 5 mg PO HS COUNT [facility]CLUDES [facility] Last Admin: 07/21/19 21:11 Dose: Not Given Zolpidem Tartrate (Ambien -) 5 mg PO HS PRN PRN Reason: INSOMNIA Last Admin: 07/21/19 21:10 Dose: 5 mg ASSESSMENT/PLAN: 79F w/ pmhx of HTN, chronic back pain, lumbar stenosis, osteoporosis, frequent falls (last one in 2017 requiring vertebroplasty sx), on chronic opiates and ambien admitted after witnessed mechanical fall resulting in L pubic ramus fracture. #Pubic Rami fracture; s/p mechanical fall. Pt has worsening pain upon ROM. Imaging studies showed: * Pelvic XR- Acute minimally displaced fractures left inferior and superior pubic rami. Left femoral neck evaluation somewhat limited by artifact from overlying clothing/drapery. No dislocation. * CT pelvis showing a comminuted fracture through the medical portion of the L pubic ramus near the symphysis pubis and hyperdense soft tissue mass superior and to the right of the fracture suspicious for a hematoma * CT head and c-spine reviewed: no acute pathology -Bedrest and fall precautions -Cont home med: Oxy 5 Q6H PRN for pain -Orthopedics consulted, Dr. Calvo for evaluation, recommending PT, weight bearing as tolerated, pain management, SNF placement, DVT prophylaxis (aspirin) for 6 weeks, and to follow up with orthopedist in 2 weeks -Due to pt's worsening pain in pelvic area and continuing drop in Hgb, will get repeat CT pelvis to evaluate hematoma seen on previous imaging. If hematoma is worsening, will get repeat CBC for midnight and re-evaluate -Repeat CTAP w/o contrast pending #Leukocytosis; Resolving. Likely reactive to fall and fracture -Febrile today at 100.3. Will cont to monitor, clinically pt does not have signs of infection, but if symptoms worsen, will do infectious workup. -UA negative -CXR with no acute pathology #HTN/HLD; Cont home meds: Lisinopril 10, Toprol XL 25, Crestor 5 HS, Cholestyramine 4 #Chronic Back Pain; Cont home med: Oxycodone 5 Q6H PRN, Flexeril 10 TID #Prophylaxis DVT: SCDs. Per ortho, can start ASA on 12/2 x6 weeks. Dispo -continue to monitor on Med-surg -likely dc to sub-acute rehab facility Visit type - Emergency Visit Emergency Visit: Yes ED Registration Date: 07/20/19 Care time: The patient presented to the Emergency Department on the above date and was hospitalized for further evaluation of their emergent condition. - New Patient This patient is new to me today: No - Critical Care Critical Care patient: No ATTENDING PHYSICIAN STATEMENT I saw and evaluated the patient. I reviewed the resident's note and discussed the case with the resident. I agree with the resident's findings and plan as documented. SUBJECTIVE: OBJECTIVE: ASSESSMENT AND PLAN:
[2019-07-22] MEDS ORDERED: POTASSIUM CHLORIDE TABS 20 MEQ TABLET.ER (FP) PO ONE ×2 (13:00→18:00)
[2019-07-22] MEDS: PATIENT'S OWN MEDICATION (NON-FORMULARY) (Raloxifene Hcl [Raloxifene Hcl] 60 MG) PO SCH (13:15)
[2019-07-22] MEDS: CYCLOBENZAPRINE HCL 10 MG TABLET (FP) PO PRN (14:54)
--- NOTE | 2019-07-22 15:11 | PN ---
Teaching Attending Note Name of Resident: Afshan Taylor ATTENDING PHYSICIAN STATEMENT I saw and evaluated the patient. I reviewed the resident's note and discussed the case with the resident. I agree with the resident's findings and plan as documented. SUBJECTIVE: Complains of ongoing pelvic pain, worse on Left. Low grade fever overnight. No chills/CP/SOB/cough/dysuria. Complains of constipation. OBJECTIVE: Tmax overnight 100.3, BP borderline, mild tachy Last Vital Signs Temp Pulse Resp BP Pulse Ox 98.7 F 92 H 20 107/58 L 98 07/22/19 13:55 07/22/19 13:55 07/22/19 13:55 07/22/19 13:55 07/20/19 21:00 Heart - S1, S2, RRR Lungs - clear to auscultation Abdomen - Soft, non-tender. Bowel Sounds normal. Extremities - venous stasis, no calf tenderness, reduced ROM about L hip due to pain. Neurovascularly intact. Laboratory Results - last 24 hr 07/22/19 07/22/19 08:30 08:30 WBC 10.4 H RBC 2.54 L Hgb 8.6 L Hct 25.3 L D MCV 99.4 H MCH 33.8 H MCHC 34.0 RDW 14.0 Plt Count 182 MPV 7.4 L Absolute Neuts (auto) 8.3 H Neutrophils % 79.8 Lymphocytes % 10.6 Monocytes % 8.9 Eosinophils % 0.4 Basophils % 0.3 Nucleated RBC % 0 Sodium 142 Potassium 3.4 L Chloride 111 H Carbon Dioxide 25 Anion Gap 6 L BUN 12.5 Creatinine 0.7 Est GFR (CKD-EPI)AfAm 96.86 Est GFR (CKD-EPI)NonAf 83.57 Random Glucose 105 Calcium 7.7 L Current Medications Generic Name Dose Route Start Last Admin Trade Name Freq PRN Reason Stop Dose Admin Cholestyramine Resin 4 gm 07/21/19 10:00 07/22/19 10:31 Questran Light Packet - PO Not Given DAILY NINA Cyclobenzaprine HCl 10 mg 07/20/19 03:57 07/22/19 14:54 Flexeril - PO 10 mg TID PRN Administration MUSCLE SPASMS Docusate Sodium 100 mg 07/21/19 18:28 07/22/19 10:31 Colace - PO 100 mg BID PRN Administration CONSTIPATION Sodium Chloride 1,000 mls @ 100 mls/hr 07/21/19 18:45 07/21/19 18:46 Normal Saline - IV 100 mls/hr ASDIR NINA Administration Lisinopril 10 mg 07/20/19 10:00 07/22/19 10:31 Prinivil PO 10 mg DAILY NINA Administration Meclizine HCl 12.5 mg 07/20/19 14:00 07/22/19 13:46 Antivert - PO Not Given TID NINA Metoprolol Succinate 25 mg 07/20/19 10:00 07/22/19 10:31 Toprol Xl - PO 25 mg DAILY NINA Administration Miscellaneous 1 each 07/19/19 22:00 07/21/19 21:11 Lidoderm Patch Removal MC Not Given DAILY@2200 NINA Oxycodone HCl 5 mg 07/20/19 10:47 07/22/19 10:31 Roxicodone - PO 5 mg Q6H PRN Administration PAIN 1-5 Polyethylene Glycol 17 gm 07/21/19 18:28 07/22/19 10:33 Miralax (For Daily Use) - PO 17 gm DAILY PRN Administration CONSTIPATION Rosuvastatin Calcium 5 mg 07/20/19 22:00 07/21/19 21:11 Crestor - PO Not Given HS [facility] Zolpidem Tartrate 5 mg 07/20/19 22:00 07/21/19 21:10 Ambien - PO 5 mg HS PRN Administration INSOMNIA Home Medications Medication Instructions Recorded Aspirin 81 mg PO DAILY #42 tab.chew 07/20/19 Cholestyramine/Aspartame 4 gm PO DAILY 07/20/19 [Cholestyramine Light Packet] Cyclobenzaprine HCl 10 mg PO TID 07/20/19 Hydrochlorothiazide 50 mg PO DAILY 07/20/19 Hydrocodone/Acetaminophen [[place] 1 each PO QID PRN 07/20/19 5-325 Tablet] Lisinopril [Prinivil] 10 mg PO DAILY 07/20/19 Meclizine HCl 12.5 mg PO TID 07/20/19 Metoprolol Succinate [Toprol Xl] 25 mg PO DAILY 07/20/19 Raloxifene HCl 60 mg PO DAILY 07/20/19 Rosuvastatin Calcium [Crestor] 5 mg PO DAILY 07/20/19 Zolpidem Tartrate 10 mg PO HS 07/20/19 ASSESSMENT AND PLAN: 79 year old female with chronic back pain, lumbar stenosis, osteoporosis, frequent falls, on chronic opiates and ambien presents after mechanical fall, missing a step and landing on her hip. No head injury/LOC. No preceding CP/ palpitations/lightheadedness. Hip XR - Acute minimally displaced fractures left inferior and superior pubic rami. Left femoral neck evaluation somewhat limited by artifact from overlying clothing/drapery. No dislocation. CT Head - no acute intracranial findings CT C Spine - no bony inury, DJD. CT Pelvis - comminuted fractures through pubic ramus/pubis symphysis, possible associated hematoma. 1. Acute Pelvic Fractures s/p mechanical fall Seen by Ortho - recommend PT, WBAT, DVT Px 6 weeks to start on Monday 07/23 ( discussed with Dr. Calvo), Ortho follow up 2 weeks. Resumed on home oxycodone regimen. PT Awaiting SNF/Acute Rehab placement. 2. HTN - HCTZ held - can lead to orthostasis and falls in the elderly. BP borderline yesterday - Metoprolol, Lisinopril held 09/20, resumed today. BP responded to gentle hydration. 3. HLD - on Crestor. 4. Chronic Back Pain - on opiates chronically along with Flexeril and Zolpidem. 5. Drop in H?H ?etiology - likely hemodilution due to IV hydration. Given fever and tachycardia overnight, and increased pelvic pain, will repeat Pelvis CT to ensure no further bleeding/hematoma at fracture site. 6. Hypokalemia - repleted. DVT Px - SCDs for now given hematoma on CT. For ASA starting 07/23 for 6 weeks as per Ortho
[2019-07-22] MEDS: ROSUVASTATIN CA 5 MG TABLET (FP) PO SCH (21:47)
[2019-07-22] MEDS: ZOLPIDEM TARTRATE 5 MG TABLET PO PRN (21:50)
[2019-07-22] MEDS: LIDOCAINE PATCH REMOVAL MC SCH (21:51)
[2019-07-23] MEDS: MECLIZINE HCL 12.5 MG TABLET PO SCH ×3 (05:59→21:32)
[2019-07-23 07:28] LABS: HEMOGLOBIN 8.1 GM/dL (10.7-15.3); MCH 33.6 pg (25.7-33.7); MCHC 33.7 g/dl (32.0-36.0); MEAN CELL VOLUME 99.5 fl (80-96); MEAN PLT VOLUME 7.1 fl (7.5-11.1); PLATELET COUNT 186 K/MM3 (134-434); RBC 2.41 M/mm3 (3.60-5.2); RDW 13.9 % (11.6-15.6); WHITE BLOOD COUNT 9.7 K/mm3 (4.0-10.0)
[2019-07-23 07:59] LABS: BLOOD UREA NITROGEN 12.6 mg/dL (7-18); CREATININE 0.7 mg/dL (0.55-1.3)
[2019-07-23 08:00] LABS: CALCIUM 7.7 mg/dL (8.5-10.1); POTASSIUM 3.9 mmol/L (3.5-5.1)
--- NOTE | 2019-07-23 08:57 | PN ---
Progress Note (short form) - Note Progress Note: Ortho Pt seen and examined s/p left sup and inf pubic rami fx Selected Entries 07/23/19 05:00 Temperature 98.1 F Pulse Rate 91 H Respiratory 20 Rate Blood Pressure 133/61 Laboratory Tests 07/23/19 07:16 WBC 9.7 Hgb 8.1 L Hct 24.0 L Plt Count 186 + ttp, decr rom, calf soft, nt nvi CT scan- unchanged from previous scan a/p PT wbat pain control dvt ppx d/c planning d/w Dr. Calvo
[2019-07-23] MEDS: CHOLESTYRAMINE/ASPARTAME 4 GM PACKET PO SCH ×2 (09:29→09:32)
[2019-07-23] MEDS: metoPROLOL SUCCINATE 25 MG TAB.SR.24H (FP) PO SCH (09:29)
[2019-07-23] MEDS: LISINOPRIL 10 MG TABLET (FP) PO SCH (09:29)
[2019-07-23] MEDS: ASPIRIN 81 MG CHEWABLE TABLETS PO SCH (11:25)
[2019-07-23] MEDS: oxyCODONE HCL 5 MG TABLET PO PRN ×2 (11:53→17:12)
--- NOTE | 2019-07-23 15:40 | PN ---
Physical Exam: SUBJECTIVE: Patient seen and examined at the bedside. Patient stated that she continued to have pain when moving her left extremity. Stated that she had some difficulty with urination. Also endorsed some suprapubic pressure but no pain. Denied cp, sob, n/v/c/d, fever, chills, numbness, tingling. OBJECTIVE: Vital Signs Period Temp Pulse Resp BP Sys/Martinez Pulse Ox Last 24 Hr 97.6 F-99.5 F 87-98 17-20 101-139/55-69 GENERAL: Pleasant, well-appearing elderly female. NAD. Cooperative. AAOx3. HEENT: Atraumatic, normocephalic. NECK: Trachea midline, full range of motion, supple. LUNGS: Breath sounds equal, clear to auscultation bilaterally, no wheezes, no crackles, no accessory muscle use. HEART: Regular rate and rhythm, S1, S2 without murmur, rub. ABDOMEN: Soft, mildly tender in the suprapubic region, nondistended, normoactive bowel sounds, no guarding, no rebound, no masses. EXTREMITIES: 2+ pulses, warm, well-perfused, no edema. NEUROLOGICAL: Cranial nerves II through XII grossly intact. Decreased strength on the LLE in flexion/extension, rotation, secondary to pain. No sensory deficits. PSYCH: Normal mood, normal affect. SKIN: Warm, dry, normal turgor, no rashes or lesions noted Laboratory Results - last 24 hr 07/23/19 07/23/19 07:16 07:16 WBC 9.7 RBC 2.41 L Hgb 8.1 L Hct 24.0 L MCV 99.5 H MCH 33.6 MCHC 33.7 RDW 13.9 Plt Count 186 MPV 7.1 L Sodium 145 Potassium 3.9 Chloride 117 H Carbon Dioxide 24 Anion Gap 5 L BUN 12.6 Creatinine 0.7 Est GFR (CKD-EPI)AfAm 96.86 Est GFR (CKD-EPI)NonAf 83.57 Random Glucose 107 H Calcium 7.7 L Active Medications Generic Name Dose Route Start Last Admin Trade Name Freq PRN Reason Stop Dose Admin Aspirin 81 mg 07/23/19 10:45 07/23/19 11:25 Asa - PO 81 mg DAILY NINA Administration Cholestyramine Resin 4 gm 07/21/19 10:00 07/23/19 09:32 Questran Light Packet - PO Not Given DAILY NINA Cyclobenzaprine HCl 10 mg 07/20/19 03:57 07/22/19 14:54 Flexeril - PO 10 mg TID PRN Administration MUSCLE SPASMS Docusate Sodium 100 mg 07/21/19 18:28 07/22/19 10:31 Colace - PO 100 mg BID PRN Administration CONSTIPATION Lisinopril 10 mg 07/20/19 10:00 07/23/19 09:29 Prinivil PO 10 mg DAILY NINA Administration Meclizine HCl 12.5 mg 07/20/19 14:00 07/23/19 14:07 Antivert - PO Not Given TID NINA Metoprolol Succinate 25 mg 07/20/19 10:00 07/23/19 09:29 Toprol Xl - PO 25 mg DAILY NINA Administration Miscellaneous 1 each 07/19/19 22:00 07/22/19 21:51 Lidoderm Patch Removal MC Not Given DAILY@2200 NINA Oxycodone HCl 5 mg 07/20/19 10:47 07/23/19 11:53 Roxicodone - PO 5 mg Q6H PRN Administration PAIN 1-5 Polyethylene Glycol 17 gm 07/21/19 18:28 07/22/19 10:33 Miralax (For Daily Use) - PO 17 gm DAILY PRN Administration CONSTIPATION Rosuvastatin Calcium 5 mg 07/20/19 22:00 07/22/19 21:47 Crestor - PO 5 mg HS NINA Administration Zolpidem Tartrate 5 mg 07/20/19 22:00 07/22/19 21:50 Ambien - PO 5 mg HS PRN Administration INSOMNIA ASSESSMENT/PLAN: Connie Red is a 79 year old female with a past medical history of HTN, chronic back pain, lumbar stenosis, osteoporosis, frequent falls (last one in 2017 requiring vertebroplasty sx), on chronic opiates and ambien admitted after witnessed mechanical fall resulting in L pubic ramus fracture. Pubic Rami fracture; s/p mechanical fall. Pt has worsening pain upon ROM. Imaging studies showed: * Pelvic XR- Acute minimally displaced fractures left inferior and superior pubic rami. Left femoral neck evaluation somewhat limited by artifact from overlying clothing/drapery. No dislocation. * CT pelvis showing a comminuted fracture through the medical portion of the L pubic ramus near the symphysis pubis and hyperdense soft tissue mass superior and to the right of the fracture suspicious for a hematoma * CT head and c-spine reviewed: no acute pathology - Bedrest and fall precautions - Cont home med: Oxy 5 Q6H PRN for pain - Orthopedics consulted, Dr. Calvo for evaluation, recommending PT, weight bearing as tolerated, pain management, SNF placement, DVT prophylaxis (aspirin) for 6 weeks, and to follow up with orthopedist in 2 weeks - Repeat CTAP showing unchanged hematoma and left pubic rami fracture - continue PT, maximum ambulation 5ft Urinary Retention - CTAP showing mild bilateral hydronephrosis - patient stated that she has difficulty excreting urine - will have an attempt at self-voiding, if not will have ramirez catheter placed - if ramirez placed, patient will f/u with urology outpatient Leukocytosis - Resolved. Likely secondary to fall and fracture - afebrile - UA negative - CXR with no acute pathology HTN/HLD - Cont home meds: Lisinopril 10, Toprol XL 25, Crestor 5 HS, Cholestyramine 4 Chronic Back Pain - Cont home med: Oxycodone 5 Q6H PRN, Flexeril 10 TID Anemia - hematoma stable as per CT read - likely dilutional - no symptoms at this time, continue to monitor Prophylaxis - DVT: SCDs. Per ortho, started ASA on 12/2 x6 weeks. Dispo - continue to monitor on Med-surg - likely dc to sub-acute rehab facility when has placement and auth Visit type - Emergency Visit Emergency Visit: Yes ED Registration Date: 07/20/19 Care time: The patient presented to the Emergency Department on the above date and was hospitalized for further evaluation of their emergent condition. - New Patient This patient is new to me today: No - Critical Care Critical Care patient: No
--- NOTE | 2019-07-23 16:22 | PN ---
Teaching Attending Note Name of Resident: Den Viramontes ATTENDING PHYSICIAN STATEMENT I saw and evaluated the patient. I reviewed the resident's note and discussed the case with the resident. I agree with the resident's findings and plan as documented. SUBJECTIVE: Some improvement in pelvic pain, worse on Left. Low grade temp overnight. No chills/CP/SOB/cough/dysuria. OBJECTIVE: Tmax overnight 99.8, hemodynamicaly Stable. Last Vital Signs Temp Pulse Resp BP Pulse Ox 98.9 F 91 H 20 116/58 L 98 07/23/19 13:00 07/23/19 13:00 07/23/19 13:00 07/23/19 13:00 07/20/19 21:00 Heart - S1, S2, RRR Lungs - clear to auscultation Abdomen - Soft, non-tender. Bowel Sounds normal. Extremities - venous stasis, no calf tenderness, reduced ROM about L hip due to pain. Neurovascularly intact. Laboratory Results - last 24 hr 07/23/19 07/23/19 07:16 07:16 WBC 9.7 RBC 2.41 L Hgb 8.1 L Hct 24.0 L MCV 99.5 H MCH 33.6 MCHC 33.7 RDW 13.9 Plt Count 186 MPV 7.1 L Sodium 145 Potassium 3.9 Chloride 117 H Carbon Dioxide 24 Anion Gap 5 L BUN 12.6 Creatinine 0.7 Est GFR (CKD-EPI)AfAm 96.86 Est GFR (CKD-EPI)NonAf 83.57 Random Glucose 107 H Calcium 7.7 L Current Medications Generic Name Dose Route Start Last Admin Trade Name Freq PRN Reason Stop Dose Admin Aspirin 81 mg 07/23/19 10:45 07/23/19 11:25 Asa - PO 81 mg DAILY NINA Administration Cholestyramine Resin 4 gm 07/21/19 10:00 07/23/19 09:32 Questran Light Packet - PO Not Given DAILY NINA Cyclobenzaprine HCl 10 mg 07/20/19 03:57 07/22/19 14:54 Flexeril - PO 10 mg TID PRN Administration MUSCLE SPASMS Docusate Sodium 100 mg 07/21/19 18:28 07/22/19 10:31 Colace - PO 100 mg BID PRN Administration CONSTIPATION Lisinopril 10 mg 07/20/19 10:00 12/02/19 09:29 Prinivil PO 10 mg DAILY NINA Administration Meclizine HCl 12.5 mg 07/20/19 14:00 07/23/19 14:07 Antivert - PO Not Given TID NINA Metoprolol Succinate 25 mg 07/20/19 10:00 07/23/19 09:29 Toprol Xl - PO 25 mg DAILY NINA Administration Miscellaneous 1 each 07/19/19 22:00 07/22/19 21:51 Lidoderm Patch Removal MC Not Given DAILY@2200 NINA Oxycodone HCl 5 mg 07/20/19 10:47 07/23/19 11:53 Roxicodone - PO 5 mg Q6H PRN Administration PAIN 1-5 Polyethylene Glycol 17 gm 07/21/19 18:28 07/22/19 10:33 Miralax (For Daily Use) - PO 17 gm DAILY PRN Administration CONSTIPATION Rosuvastatin Calcium 5 mg 07/20/19 22:00 07/22/19 21:47 Crestor - PO 5 mg HS NINA Administration Zolpidem Tartrate 5 mg 07/20/19 22:00 07/22/19 21:50 Ambien - PO 5 mg HS PRN Administration INSOMNIA Home Medications Medication Instructions Recorded Aspirin 81 mg PO DAILY #42 tab.chew 07/20/19 Cholestyramine/Aspartame 4 gm PO DAILY 07/20/19 [Cholestyramine Light Packet] Cyclobenzaprine HCl 10 mg PO TID 07/20/19 Hydrochlorothiazide 50 mg PO DAILY 07/20/19 Hydrocodone/Acetaminophen [[place] 1 each PO QID PRN 07/20/19 5-325 Tablet] Lisinopril [Prinivil] 10 mg PO DAILY 07/20/19 Meclizine HCl 12.5 mg PO TID 07/20/19 Metoprolol Succinate [Toprol Xl] 25 mg PO DAILY 07/20/19 Raloxifene HCl 60 mg PO DAILY 07/20/19 Rosuvastatin Calcium [Crestor] 5 mg PO DAILY 07/20/19 Zolpidem Tartrate 10 mg PO HS 07/20/19 ASSESSMENT AND PLAN: 79 year old female with chronic back pain, lumbar stenosis, osteoporosis, frequent falls, on chronic opiates and ambien presents after mechanical fall, missing a step and landing on her hip. No head injury/LOC. No preceding CP/ palpitations/lightheadedness. Hip XR - Acute minimally displaced fractures left inferior and superior pubic rami. Left femoral neck evaluation somewhat limited by artifact from overlying clothing/drapery. No dislocation. CT Head - no acute intracranial findings CT C Spine - no bony inury, DJD. CT Pelvis - comminuted fractures through pubic ramus/pubis symphysis, possible associated hematoma. 1. Acute Pelvic Fractures s/p mechanical fall Seen by Ortho - recommend PT, WBAT, DVT Px 6 weeks of ASA 81 to start on Monday 07/23 (discussed with Dr. Calvo), Ortho follow up 2 weeks. Resumed on home oxycodone regimen. PT Awaiting SNF/Acute Rehab placement. 2. HTN - HCTZ held - can lead to orthostasis and falls in the elderly. Metoprolol, Lisinopril resumed. 3. HLD - on Crestor. 4. Chronic Back Pain - on opiates chronically along with Flexeril and Zolpidem. 5. Drop in H?H ?etiology - likely hemodilution due to IV hydration. Repeat Pelvis CT shows no change in hematoma or new bleeding into pelvic fracture site. 6. Hypokalemia - repleted. 7. Distended Urinary Bladder with mild bilateral hydro on CT - offered ramirez catheter, declines at this time. Opts to attempt natural voiding and serial bedside bladder scans before decision to replace ramirez is made. Monitor renal function. DVT Px - Started on Aspirin 81mg as per Ortho recommendations.
[2019-07-23] MEDS: ZOLPIDEM TARTRATE 5 MG TABLET PO PRN (21:32)
[2019-07-23] MEDS: CYCLOBENZAPRINE HCL 10 MG TABLET (FP) PO PRN (21:32)
[2019-07-23] MEDS: ROSUVASTATIN CA 5 MG TABLET (FP) PO SCH (21:32)
[2019-07-23] MEDS: LIDOCAINE PATCH REMOVAL MC SCH (21:36)
[2019-07-24 02:49] LABS: BASO % 0.4 % (0-2.0); EOS % 0.6 % (0-4.5); HEMATOCRIT 26.2 % (32.4-45.2); HEMOGLOBIN 8.7 GM/dL (10.7-15.3); LYMPH % 5.8 % (8-40); MCH 33.4 pg (25.7-33.7); MCHC 33.1 g/dl (32.0-36.0); MEAN CELL VOLUME 100.7 fl (80-96); MEAN PLT VOLUME 7.2 fl (7.5-11.1); MONO % 5.7 % (3.8-10.2); NEUT % 87.5 % (42.8-82.8); PLATELET COUNT 264 K/MM3 (134-434); WHITE BLOOD COUNT 11.3 K/mm3 (4.0-10.0)
[2019-07-24 04:30] LABS: EPI CELLS 0.1 /HPF (0-5/HPF); HYALINE CASTS 4 /lpf (0-8); URINE APPEARANCE CLOUDY; URINE BACTERIA 2468.6 /hpf (NEGATIVE); URINE BILIRUBIN NEGATIVE (NEGATIVE); URINE COLOR YELLOW; URINE GLUCOSE (UA) NEGATIVE (NEGATIVE); URINE KETONE NEGATIVE (NEGATIVE); URINE LEUK ESTERASE 1+ (NEGATIVE); URINE NITRITE POSITIVE (NEGATIVE); URINE PROTEIN NEGATIVE (NEGATIVE); URINE RBC 2 /hpf (0-4); URINE UROBILINOGEN 0.2 mg/dL (0.2-1.0); URINE WBC 63 /hpf (0-5)
[2019-07-24] MEDS: MECLIZINE HCL 12.5 MG TABLET PO SCH ×3 (06:51→22:54)
[2019-07-24 08:30] LABS: BASO % 0.4 % (0-2.0); EOS % 1.2 % (0-4.5); HEMATOCRIT 25.2 % (32.4-45.2); HEMOGLOBIN 8.5 GM/dL (10.7-15.3); LYMPH % 9.4 % (8-40); MCH 33.8 pg (25.7-33.7); MCHC 33.7 g/dl (32.0-36.0); MEAN CELL VOLUME 100.3 fl (80-96); MEAN PLT VOLUME 7.1 fl (7.5-11.1); MONO % 7.6 % (3.8-10.2); NEUT % 81.4 % (42.8-82.8); PLATELET COUNT 224 K/MM3 (134-434); RBC 2.51 M/mm3 (3.60-5.2); RDW 14.1 % (11.6-15.6); WHITE BLOOD COUNT 9.8 K/mm3 (4.0-10.0)
[2019-07-24 08:47] LABS: BLOOD UREA NITROGEN 17.9 mg/dL (7-18); CALCIUM 8.3 mg/dL (8.5-10.1); CREATININE 0.9 mg/dL (0.55-1.3); POTASSIUM 3.7 mmol/L (3.5-5.1)
[2019-07-24] MEDS ORDERED: DEXTROSE 5%-WATER - 50 ML IVPB ONE (09:36)
[2019-07-24] MEDS ORDERED: cefTRIAXone SODIUM 1 GM VIAL ONE (09:36)
[2019-07-24] MEDS: CEFTRIAXONE 1 GM in DEXTROSE 5%-WATER - 50 ML IVPB SCH (09:41)
[2019-07-24] MEDS: metoPROLOL SUCCINATE 25 MG TAB.SR.24H (FP) PO SCH (09:41)
[2019-07-24] MEDS: LISINOPRIL 10 MG TABLET (FP) PO SCH (09:41)
[2019-07-24] MEDS: ASPIRIN 81 MG CHEWABLE TABLETS PO SCH (09:41)
[2019-07-24] MEDS: CHOLESTYRAMINE/ASPARTAME 4 GM PACKET PO SCH (09:41)
[2019-07-24] MEDS: oxyCODONE HCL 5 MG TABLET PO PRN (09:46)
--- NOTE | 2019-07-24 12:23 | PN ---
Physical Exam: SUBJECTIVE: Patient seen and examined at the bedside. Overnight events of fever noted. Patient noted that she was feeling well but did note her fever overnight and that ramirez was placed in order to drain urine. Noted that she had pain in her left lower extremity but was able to move it. Stated had some suprapubic pressure. Denies cp, sob, n/v/c/d, numbness, tingling. OBJECTIVE: Vital Signs Period Temp Pulse Resp BP Sys/Martinez Pulse Ox Last 24 Hr 97.9 F-103 F 91-110 20-20 94-128/58-70 GENERAL: Pleasant, well-appearing elderly female. NAD. Cooperative. AAOx3. HEENT: Atraumatic, normocephalic. NECK: Trachea midline, full range of motion, supple. LUNGS: Breath sounds equal, clear to auscultation bilaterally, no wheezes, no crackles, no accessory muscle use. HEART: Regular rate and rhythm, S1, S2 without murmur, rub. ABDOMEN: Soft, mildly tender in the suprapubic region, nondistended, normoactive bowel sounds, no guarding, no rebound, no masses. EXTREMITIES: 2+ pulses, warm, well-perfused, no edema. NEUROLOGICAL: Cranial nerves II through XII grossly intact. Decreased strength on the LLE in flexion/extension, rotation, secondary to pain. No sensory deficits. PSYCH: Normal mood, normal affect. SKIN: Warm, dry, normal turgor, no rashes or lesions noted. Laboratory Results - last 24 hr 07/24/19 07/24/19 07/24/19 02:20 02:20 02:20 WBC 11.3 H RBC 2.60 L Hgb 8.7 L Hct 26.2 L MCV 100.7 H MCH 33.4 MCHC 33.1 RDW 14.0 Plt Count 264 D MPV 7.2 L Absolute Neuts (auto) 9.9 H Neutrophils % 87.5 H Lymphocytes % 5.8 L D Monocytes % 5.7 Eosinophils % 0.6 Basophils % 0.4 Nucleated RBC % 0 Sodium Potassium Chloride Carbon Dioxide Anion Gap BUN Creatinine Est GFR (CKD-EPI)AfAm Est GFR (CKD-EPI)NonAf Random Glucose Lactic Acid 1.1 Calcium Urine Color Urine Appearance Urine pH Ur Specific [place] Urine Protein Urine Glucose (UA) Urine Ketones Urine Blood Urine Nitrite Urine Bilirubin Urine Urobilinogen Ur Leukocyte Esterase Urine WBC (Auto) Urine RBC (Auto) Urine Casts (Auto) U Epithel Cells (Auto) Urine Bacteria (Auto) Influenza A (Rapid) Negative Influenza B (Rapid) Negative 07/24/19 07/24/19 07/24/19 04:07 07:20 07:20 WBC 9.8 RBC 2.51 L Hgb 8.5 L Hct 25.2 L MCV 100.3 H MCH 33.8 H MCHC 33.7 RDW 14.1 Plt Count 224 MPV 7.1 L Absolute Neuts (auto) 8.0 Neutrophils % 81.4 Lymphocytes % 9.4 D Monocytes % 7.6 Eosinophils % 1.2 D Basophils % 0.4 Nucleated RBC % 0 Sodium 144 Potassium 3.7 Chloride 112 H Carbon Dioxide 23 Anion Gap 8 BUN 17.9 Creatinine 0.9 Est GFR (CKD-EPI)AfAm 71.48 Est GFR (CKD-EPI)NonAf 61.67 Random Glucose 103 Lactic Acid Calcium 8.3 L Urine Color Yellow Urine Appearance Cloudy Urine pH 5.0 Ur Specific [place] 1.013 Urine Protein Negative Urine Glucose (UA) Negative Urine Ketones Negative Urine Blood 2+ H Urine Nitrite Positive H Urine Bilirubin Negative Urine Urobilinogen 0.2 Ur Leukocyte Esterase 1+ H Urine WBC (Auto) 63 Urine RBC (Auto) 2 Urine Casts (Auto) 4 U Epithel Cells (Auto) 0.1 Urine Bacteria (Auto) 2468.6 Influenza A (Rapid) Influenza B (Rapid) Active Medications Generic Name Dose Route Start Last Admin Trade Name Freq PRN Reason Stop Dose Admin Acetaminophen 650 mg 07/24/19 01:56 Tylenol - PO Q6H PRN FEVER Aspirin 81 mg 07/23/19 10:45 07/24/19 09:41 Asa - PO 81 mg DAILY NINA Administration Cholestyramine Resin 4 gm 07/21/19 10:00 07/24/19 09:41 Questran Light Packet - PO Not Given DAILY NINA Cyclobenzaprine HCl 10 mg 07/20/19 03:57 07/23/19 21:32 Flexeril - PO 10 mg TID PRN Administration MUSCLE SPASMS Docusate Sodium 100 mg 07/21/19 18:28 07/22/19 10:31 Colace - PO 100 mg BID PRN Administration CONSTIPATION Ceftriaxone Sodium 1 gm/ 50 mls @ 100 mls/hr 07/24/19 10:00 07/24/19 09:41 Dextrose IVPB 100 mls/hr DAILY NINA Administration Protocol Lisinopril 10 mg 07/20/19 10:00 07/24/19 09:41 Prinivil PO 10 mg DAILY NINA Administration Meclizine HCl 12.5 mg 07/20/19 14:00 07/24/19 06:51 Antivert - PO Not Given TID NINA Metoprolol Succinate 25 mg 07/20/19 10:00 07/24/19 09:41 Toprol Xl - PO 25 mg DAILY NINA Administration Miscellaneous 1 each 07/19/19 22:00 07/23/19 21:36 Lidoderm Patch Removal MC Not Given DAILY@2200 NINA Oxycodone HCl 5 mg 07/20/19 10:47 07/24/19 09:46 Roxicodone - PO 5 mg Q6H PRN Administration PAIN 1-5 Polyethylene Glycol 17 gm 07/21/19 18:28 07/22/19 10:33 Miralax (For Daily Use) - PO 17 gm DAILY PRN Administration CONSTIPATION Rosuvastatin Calcium 5 mg 07/20/19 22:00 07/23/19 21:32 Crestor - PO Not Given HS NINA Zolpidem Tartrate 5 mg 07/20/19 22:00 07/23/19 21:32 Ambien - PO 5 mg HS PRN Administration INSOMNIA ASSESSMENT/PLAN: Connie Red is a 79 year old female with a past medical history of HTN, chronic back pain, lumbar stenosis, osteoporosis, frequent falls (last one in 2017 requiring vertebroplasty sx), on chronic opiates and ambien admitted after witnessed mechanical fall resulting in L pubic ramus fracture. Pubic Rami fracture; s/p mechanical fall. Pt has worsening pain upon ROM. Imaging studies showed: * Pelvic XR- Acute minimally displaced fractures left inferior and superior pubic rami. Left femoral neck evaluation somewhat limited by artifact from overlying clothing/drapery. No dislocation. * CT pelvis showing a comminuted fracture through the medical portion of the L pubic ramus near the symphysis pubis and hyperdense soft tissue mass superior and to the right of the fracture suspicious for a hematoma * CT head and c-spine reviewed: no acute pathology - Bedrest and fall precautions - Cont home med: Oxy 5 Q6H PRN for pain - Orthopedics consulted, Dr. Calvo for evaluation, recommending PT, weight bearing as tolerated, pain management, SNF placement, DVT prophylaxis (aspirin) for 6 weeks, and to follow up with orthopedist in 2 weeks - Repeat CTAP showing unchanged hematoma and left pubic rami fracture - started on aspirin 81mg as per ortho for DVT prophylaxis - continue PT, maximum ambulation 5ft Urinary Retention/Sepsis secondary to UTI - CTAP showing mild bilateral hydronephrosis - patient stated that she has difficulty excreting urine - ramirez catheter placed - UA showing + nitrities, 1+ Noah 63 WBC, 2468 bacteria - Ucs pending - started on ceftriaxone 1gm, will change abx pending culture sensitivities - Tmax 103 and HR 110, continue to monitor - will need to dc ramirez prior to d/c to [facility] Leukocytosis - Resolved. Likely secondary to fall and fracture - CXR with no acute pathology - treating for UTI likely due to retention HTN/HLD - Cont home meds: Lisinopril 10, Toprol XL 25, Crestor 5 HS, Cholestyramine 4 Chronic Back Pain - Cont home med: Oxycodone 5 Q6H PRN, Flexeril 10 TID Anemia - hematoma stable as per CT read - likely dilutional - no symptoms at this time, continue to monitor Prophylaxis - DVT: SCDs. Per ortho, started ASA on 12/2 x6 weeks. Dispo - continue to monitor on Med-surg - will go to [facility] pending resolution of fevers Visit type - Emergency Visit Emergency Visit: Yes ED Registration Date: 07/20/19 Care time: The patient presented to the Emergency Department on the above date and was hospitalized for further evaluation of their emergent condition. - New Patient This patient is new to me today: No - Critical Care Critical Care patient: No
--- NOTE | 2019-07-24 12:30 | PN ---
Teaching Attending Note Name of Resident: Den Viramontes ATTENDING PHYSICIAN STATEMENT I saw and evaluated the patient. I reviewed the resident's note and discussed the case with the resident. I agree with the resident's findings and plan as documented. SUBJECTIVE: Patient has no complaints. She is getting pain relief with oxycodone. She had temp 103 overnight. OBJECTIVE: Vital Signs Period Temp Pulse Resp BP Sys/Martinez Pulse Ox Last 24 Hr 97.9 F-103 F 91-110 20-20 94-128/58-70 HEART: S1S2, RRR LUNGS: Clear ABDOMEN: Soft, non-tender, non-distended, normal BS EXTREMITIES: No edema Laboratory Results - last 24 hr 07/24/19 07/24/19 07/24/19 02:20 02:20 02:20 WBC 11.3 H RBC 2.60 L Hgb 8.7 L Hct 26.2 L MCV 100.7 H MCH 33.4 MCHC 33.1 RDW 14.0 Plt Count 264 D MPV 7.2 L Absolute Neuts (auto) 9.9 H Neutrophils % 87.5 H Lymphocytes % 5.8 L D Monocytes % 5.7 Eosinophils % 0.6 Basophils % 0.4 Nucleated RBC % 0 Sodium Potassium Chloride Carbon Dioxide Anion Gap BUN Creatinine Est GFR (CKD-EPI)AfAm Est GFR (CKD-EPI)NonAf Random Glucose Lactic Acid 1.1 Calcium Urine Color Urine Appearance Urine pH Ur Specific [place] Urine Protein Urine Glucose (UA) Urine Ketones Urine Blood Urine Nitrite Urine Bilirubin Urine Urobilinogen Ur Leukocyte Esterase Urine WBC (Auto) Urine RBC (Auto) Urine Casts (Auto) U Epithel Cells (Auto) Urine Bacteria (Auto) Influenza A (Rapid) Negative Influenza B (Rapid) Negative 07/24/19 07/24/19 07/24/19 04:07 07:20 07:20 WBC 9.8 RBC 2.51 L Hgb 8.5 L Hct 25.2 L MCV 100.3 H MCH 33.8 H MCHC 33.7 RDW 14.1 Plt Count 224 MPV 7.1 L Absolute Neuts (auto) 8.0 Neutrophils % 81.4 Lymphocytes % 9.4 D Monocytes % 7.6 Eosinophils % 1.2 D Basophils % 0.4 Nucleated RBC % 0 Sodium 144 Potassium 3.7 Chloride 112 H Carbon Dioxide 23 Anion Gap 8 BUN 17.9 Creatinine 0.9 Est GFR (CKD-EPI)AfAm 71.48 Est GFR (CKD-EPI)NonAf 61.67 Random Glucose 103 Lactic Acid Calcium 8.3 L Urine Color Yellow Urine Appearance Cloudy Urine pH 5.0 Ur Specific [place] 1.013 Urine Protein Negative Urine Glucose (UA) Negative Urine Ketones Negative Urine Blood 2+ H Urine Nitrite Positive H Urine Bilirubin Negative Urine Urobilinogen 0.2 Ur Leukocyte Esterase 1+ H Urine WBC (Auto) 63 Urine RBC (Auto) 2 Urine Casts (Auto) 4 U Epithel Cells (Auto) 0.1 Urine Bacteria (Auto) 2468.6 Influenza A (Rapid) Influenza B (Rapid) Current Medications Generic Name Dose Route Start Last Admin Trade Name Freq PRN Reason Stop Dose Admin Acetaminophen 650 mg 07/24/19 01:56 Tylenol - PO Q6H PRN FEVER Aspirin 81 mg 07/23/19 10:45 07/24/19 09:41 Asa - PO 81 mg DAILY NINA Administration Cholestyramine Resin 4 gm 07/21/19 10:00 07/24/19 09:41 Questran Light Packet - PO Not Given DAILY [facility] Cyclobenzaprine HCl 10 mg 07/20/19 03:57 07/23/19 21:32 Flexeril - PO 10 mg TID PRN Administration MUSCLE SPASMS Docusate Sodium 100 mg 07/21/19 18:28 07/22/19 10:31 Colace - PO 100 mg BID PRN Administration CONSTIPATION Ceftriaxone Sodium 1 gm/ 50 mls @ 100 mls/hr 07/24/19 10:00 07/24/19 09:41 Dextrose IVPB 100 mls/hr DAILY NINA Administration Protocol Lisinopril 10 mg 07/20/19 10:00 07/24/19 09:41 Prinivil PO 10 mg DAILY NIAN Administration Meclizine HCl 12.5 mg 07/20/19 14:00 07/24/19 06:51 Antivert - PO Not Given TID NINA Metoprolol Succinate 25 mg 07/20/19 10:00 07/24/19 09:41 Toprol Xl - PO 25 mg DAILY NINA Administration Miscellaneous 1 each 07/19/19 22:00 07/23/19 21:36 Lidoderm Patch Removal MC Not Given DAILY@2200 [facility] Oxycodone HCl 5 mg 07/20/19 10:47 07/24/19 09:46 Roxicodone - PO 5 mg Q6H PRN Administration PAIN 1-5 Polyethylene Glycol 17 gm 07/21/19 18:28 07/22/19 10:33 Miralax (For Daily Use) - PO 17 gm DAILY PRN Administration CONSTIPATION Rosuvastatin Calcium 5 mg 07/20/19 22:00 07/23/19 21:32 Crestor - PO Not Given HS NINA Zolpidem Tartrate 5 mg 07/20/19 22:00 07/23/19 21:32 Ambien - PO 5 mg HS PRN Administration INSOMNIA ASSESSMENT AND PLAN: 79 year old female with chronic back pain, lumbar stenosis, osteoporosis, frequent falls, on chronic opiates and ambien presents after mechanical fall, missing a step and landing on her hip. No head injury/LOC. No preceding CP/ palpitations/lightheadedness. 1. Left superior and inferior pubic rami fractures - Continue PT - Pain control with oxycodone as needed - Plan for discharge to [place] - DVT prophylaxis with aspirin, SCDs per ortho 2. s/p fall 3. Sepsis (fever, tachycardia) secondary to UTI - Ceftriaxone started - Follow up urine, blood cultures 4. HTN - Continue lisinopril, Toprol XL 5. Hyperlipidemia - Continue Crestor 6. Chronic back pain - Continue Flexeril as needed, oxycodone as needed 7. Anemia, likely secondary to acute blood loss (pelvic hematoma) and IV fluid - Hemoglobin stable 8. Hypokalemia - Improved 9. Urinary retention - Maintain Styles until more ambulatory
[2019-07-24] MEDS: CYCLOBENZAPRINE HCL 10 MG TABLET (FP) PO PRN (13:31)
[2019-07-24] MEDS: ACETAMINOPHEN 325 MG TABLET (FP) PO PRN (14:52)
[2019-07-24] MEDS: LIDOCAINE PATCH REMOVAL MC SCH (22:54)
[2019-07-24] MEDS: ZOLPIDEM TARTRATE 5 MG TABLET PO PRN (22:55)
[2019-07-24] MEDS: ROSUVASTATIN CA 5 MG TABLET (FP) PO SCH (22:56)
[2019-07-25] MEDS: ACETAMINOPHEN 325 MG TABLET (FP) PO PRN (07:04)
[2019-07-25] MEDS: MECLIZINE HCL 12.5 MG TABLET PO SCH ×3 (07:06→22:12)
[2019-07-25 08:35] LABS: HEMATOCRIT 22.2 % (32.4-45.2); HEMOGLOBIN 7.6 GM/dL (10.7-15.3); MCH 33.6 pg (25.7-33.7); MCHC 34.3 g/dl (32.0-36.0); MEAN PLT VOLUME 7.3 fl (7.5-11.1); PLATELET COUNT 258 K/MM3 (134-434); RBC 2.26 M/mm3 (3.60-5.2); RDW 13.8 % (11.6-15.6); WHITE BLOOD COUNT 8.3 K/mm3 (4.0-10.0)
[2019-07-25 08:45] LABS: BLOOD UREA NITROGEN 14.9 mg/dL (7-18); CALCIUM 7.9 mg/dL (8.5-10.1); CREATININE 0.7 mg/dL (0.55-1.3); POTASSIUM 3.3 mmol/L (3.5-5.1)
[2019-07-25] MEDS ORDERED: cefTRIAXone SODIUM 1 GM VIAL ONE (09:43)
[2019-07-25] MEDS ORDERED: PT OWN MED DRAWER 7, Y5N ONE (09:43)
[2019-07-25] MEDS ORDERED: DEXTROSE 5%-WATER - 50 ML IVPB ONE (09:43)
[2019-07-25] MEDS: CEFTRIAXONE 1 GM in DEXTROSE 5%-WATER - 50 ML IVPB SCH (09:46)
[2019-07-25] MEDS: LISINOPRIL 10 MG TABLET (FP) PO SCH (09:47)
[2019-07-25] MEDS: ASPIRIN 81 MG CHEWABLE TABLETS PO SCH (09:47)
[2019-07-25] MEDS: metoPROLOL SUCCINATE 25 MG TAB.SR.24H (FP) PO SCH (09:47)
[2019-07-25] MEDS: CHOLESTYRAMINE/ASPARTAME 4 GM PACKET PO SCH (09:53)
[2019-07-25] MEDS: oxyCODONE HCL 5 MG TABLET PO PRN ×2 (11:42→18:00)
[2019-07-25 13:31] LABS: HEMATOCRIT 23.3 % (32.4-45.2); HEMOGLOBIN 7.9 GM/dL (10.7-15.3); MCH 33.4 pg (25.7-33.7); MCHC 33.8 g/dl (32.0-36.0); MEAN CELL VOLUME 98.7 fl (80-96); MEAN PLT VOLUME 7.1 fl (7.5-11.1); PLATELET COUNT 275 K/MM3 (134-434); RBC 2.36 M/mm3 (3.60-5.2); RDW 13.9 % (11.6-15.6); WHITE BLOOD COUNT 8.4 K/mm3 (4.0-10.0)
--- NOTE | 2019-07-25 15:33 | PN ---
Physical Exam: SUBJECTIVE: Patient seen and examined at the bedside. Stated that she continued to have some pain in her hip but was otherwise in good spirits. Had fevers overnight. Stated she did not have any cp, sob, abd pain, n/v/c/d, numbness, tingling, calf pain. OBJECTIVE: Vital Signs Period Temp Pulse Resp BP Sys/Martinez Pulse Ox Last 24 Hr 98.8 F-102.4 F 97-104 18-20 99-131/55-67 GENERAL: Pleasant, well-appearing elderly female. NAD. Cooperative. AAOx3. HEENT: Atraumatic, normocephalic. NECK: Trachea midline, full range of motion, supple. LUNGS: Breath sounds equal, clear to auscultation bilaterally, no wheezes, no crackles, no accessory muscle use. HEART: Regular rate and rhythm, S1, S2 without murmur, rub. ABDOMEN: Soft, mildly tender in the suprapubic region, nondistended, normoactive bowel sounds, no guarding, no rebound, no masses. EXTREMITIES: 2+ pulses, warm, well-perfused, no edema. NEUROLOGICAL: Cranial nerves II through XII grossly intact. Decreased strength on the LLE in flexion/extension, rotation, secondary to pain. No sensory deficits. PSYCH: Normal mood, normal affect. SKIN: Warm, dry, normal turgor, no rashes or lesions noted. Laboratory Results - last 24 hr 07/24/19 07/25/19 07/25/19 02:20 07:26 07:26 WBC 8.3 RBC 2.26 L Hgb 7.6 L Hct 22.2 L MCV 98.0 H MCH 33.6 MCHC 34.3 RDW 13.8 Plt Count 258 MPV 7.3 L Sodium 143 Potassium 3.3 L Chloride 110 H Carbon Dioxide 25 Anion Gap 8 BUN 14.9 Creatinine 0.7 Est GFR (CKD-EPI)AfAm 96.86 Est GFR (CKD-EPI)NonAf 83.57 Random Glucose 103 Calcium 7.9 L Blood Type A POSITIVE Antibody Screen Crossmatch 07/25/19 07/25/19 11:21 12:42 WBC 8.4 RBC 2.36 L Hgb 7.9 L Hct 23.3 L MCV 98.7 H MCH 33.4 MCHC 33.8 RDW 13.9 Plt Count 275 MPV 7.1 L Sodium Potassium Chloride Carbon Dioxide Anion Gap BUN Creatinine Est GFR (CKD-EPI)AfAm Est GFR (CKD-EPI)NonAf Random Glucose Calcium Blood Type A POSITIVE Antibody Screen Negative Crossmatch See Detail Active Medications Generic Name Dose Route Start Last Admin Trade Name Freq PRN Reason Stop Dose Admin Acetaminophen 650 mg 07/24/19 01:56 07/25/19 07:04 Tylenol - PO 650 mg Q6H PRN Administration FEVER Aspirin 81 mg 07/23/19 10:45 07/25/19 09:47 Asa - PO 81 mg DAILY NINA Administration Cholestyramine Resin 4 gm 07/21/19 10:00 07/25/19 09:53 Questran Light Packet - PO Not Given DAILY [facility] Cyclobenzaprine HCl 10 mg 07/20/19 03:57 07/24/19 13:31 Flexeril - PO 10 mg TID PRN Administration MUSCLE SPASMS Docusate Sodium 100 mg 07/21/19 18:28 07/22/19 10:31 Colace - PO 100 mg BID PRN Administration CONSTIPATION Ceftriaxone Sodium 1 gm/ 50 mls @ 100 mls/hr 07/24/19 10:00 07/25/19 09:46 Dextrose IVPB 100 mls/hr DAILY NINA Administration Protocol Meclizine HCl 12.5 mg 07/20/19 14:00 07/25/19 14:45 Antivert - PO Not Given TID NINA Metoprolol Succinate 25 mg 07/20/19 10:00 07/25/19 09:47 Toprol Xl - PO 25 mg DAILY NINA Administration Miscellaneous 1 each 07/19/19 22:00 07/24/19 22:54 Lidoderm Patch Removal MC Not Given DAILY@2200 [facility] Oxycodone HCl 5 mg 07/20/19 10:47 07/25/19 11:42 Roxicodone - PO 5 mg Q6H PRN Administration PAIN 1-5 Polyethylene Glycol 17 gm 07/21/19 18:28 07/22/19 10:33 Miralax (For Daily Use) - PO 17 gm DAILY PRN Administration CONSTIPATION Rosuvastatin Calcium 5 mg 07/20/19 22:00 07/24/19 22:56 Crestor - PO Not Given HS [facility] Zolpidem Tartrate 5 mg 07/20/19 22:00 07/24/19 22:55 Ambien - PO 5 mg HS PRN Administration INSOMNIA ASSESSMENT/PLAN: Connie Red is a 79 year old female with a past medical history of HTN, chronic back pain, lumbar stenosis, osteoporosis, frequent falls (last one in 2017 requiring vertebroplasty sx), on chronic opiates and ambien admitted after witnessed mechanical fall resulting in L pubic ramus fracture. Pubic Rami fracture; s/p mechanical fall. Pt has worsening pain upon ROM. Imaging studies showed: * Pelvic XR- Acute minimally displaced fractures left inferior and superior pubic rami. Left femoral neck evaluation somewhat limited by artifact from overlying clothing/drapery. No dislocation. * CT pelvis showing a comminuted fracture through the medical portion of the L pubic ramus near the symphysis pubis and hyperdense soft tissue mass superior and to the right of the fracture suspicious for a hematoma * CT head and c-spine reviewed: no acute pathology - Bedrest and fall precautions - Cont home med: Oxy 5 Q6H PRN for pain - Orthopedics consulted, Dr. Calvo for evaluation, recommending PT, weight bearing as tolerated, pain management, SNF placement, DVT prophylaxis (aspirin) for 6 weeks, and to follow up with orthopedist in 2 weeks - Repeat CTAP showing unchanged hematoma and left pubic rami fracture - started on aspirin 81mg as per ortho for DVT prophylaxis - continue PT, maximum ambulation 10ft, improving Urinary Retention/Sepsis secondary to UTI - CTAP showing mild bilateral hydronephrosis - patient stated that she has difficulty excreting urine - ramirez catheter placed - UA showing + nitrities, 1+ Noah 63 WBC, 2468 bacteria - Ucs showing lactose fermenting GNB - Blood cxs negative - ceftriaxone 1gm day 2, will change abx pending culture sensitivities - Tmax 103 and HR 110, continue to monitor - will need to dc ramirez prior to d/c to [place] Leukocytosis - Resolved. Likely secondary to fall and fracture - CXR with no acute pathology - treating for UTI likely due to retention HTN/HLD - Cont home meds: Toprol XL 25, Crestor 5 HS, Cholestyramine 4, hold Lisinopril 10 due to infection and low BP Chronic Back Pain - Cont home med: Oxycodone 5 Q6H PRN, Flexeril 10 TID Anemia - hematoma stable as per CT read - no symptoms at this time, continue to monitor - will transfuse 1 unit due to decreased H/H, continue to monitor Prophylaxis - DVT: SCDs. Per ortho, started ASA on 07/23 x6 weeks. FEN - no standing fluids, low threshold to resume if patient become hypotensive - continue to monitor electrolytes and replete as necessary, hypokalemia noted and repleted. will monitor Mg Dispo - continue to monitor on Med-surg - will go to [place] pending resolution of fevers Visit type - Emergency Visit Emergency Visit: Yes ED Registration Date: 07/20/19 Care time: The patient presented to the Emergency Department on the above date and was hospitalized for further evaluation of their emergent condition. - New Patient This patient is new to me today: No - Critical Care Critical Care patient: No
[2019-07-25] MEDS ORDERED: POTASSIUM CHLORIDE TABS 20 MEQ TABLET.ER (FP) PO ONE (15:38)
--- NOTE | 2019-07-25 16:04 | PN ---
Progress Note (short form) - Note Progress Note: Ortho Pt seen and examined s/p left sup and inf pubic rami fx Selected Entries 07/25/19 14:00 Temperature 99.1 F Pulse Rate 94 H Respiratory 18 Rate Blood Pressure 101/55 L + ttp, decr rom, calf soft, nt nvi CT scan- unchanged from previous scan a/p PT wbat pain control dvt ppx d/c planning d/w Dr. Calvo
[2019-07-25] MEDS ORDERED: ACETAMINOPHEN/CAFFEINE/BUTALBITAL 1 TAB PO ONE (16:22)
--- NOTE | 2019-07-25 17:52 | PN ---
Teaching Attending Note Name of Resident: Den Viramontes ATTENDING PHYSICIAN STATEMENT I saw and evaluated the patient. I reviewed the resident's note and discussed the case with the resident. I agree with the resident's findings and plan as documented with exceptions below. SUBJECTIVE: Patient seen and examined. left pelvic pain. no dysuria, suprapubic or back pain currently. No new cough/sputum or concerns. OBJECTIVE: Vital Signs Period Temp Pulse Resp BP Sys/Martinez Pulse Ox Last 24 Hr 98.8 F-102.4 F 94-104 18-20 99-131/55-67 Intake & Output 07/22/19 07/23/19 07/24/19 07/25/19 23:59 23:59 23:59 23:59 Intake Total 1540 400 250 Output Total 560 6318 963 0836 Balance 980 -600 -650 -1200 General: sitting in bed, no acute distress HEENT: pallor CVS:S1S2 regular Chest: CTAB, no rales or wheezing, good effort Abdomen:Soft, mild suprapubic tenderness, no CVA tenderness Extremities: no edema/ecchymosis, pos pulses Home Medications Medication Instructions Recorded Cholestyramine/Aspartame 4 gm PO DAILY 07/20/19 [Cholestyramine Light Packet] Hydrocodone/Acetaminophen [[place] 1 each PO QID PRN 07/20/19 5-325 Tablet] Lisinopril [Prinivil] 10 mg PO DAILY 07/20/19 Metoprolol Succinate [Toprol Xl] 25 mg PO DAILY 07/20/19 RX: Aspirin 81 mg PO DAILY #42 tab.chew 07/20/19 RX: Cyclobenzaprine HCl 10 mg PO TID 07/20/19 RX: Hydrochlorothiazide 50 mg PO DAILY 07/20/19 RX: Meclizine HCl 12.5 mg PO TID 07/20/19 RX: Raloxifene HCl 60 mg PO DAILY 07/20/19 RX: Zolpidem Tartrate 10 mg PO HS 07/20/19 Rosuvastatin Calcium [Crestor] 5 mg PO DAILY 07/20/19 Active Medications Acetaminophen (Tylenol -) 650 mg PO Q6H PRN PRN Reason: FEVER Last Admin: 07/25/19 07:04 Dose: 650 mg Aspirin (Asa -) 81 mg PO DAILY NINA Last Admin: 07/25/19 09:47 Dose: 81 mg Cholestyramine Resin (Questran Light Packet -) 4 gm PO DAILY [facility] Last Admin: 07/25/19 09:53 Dose: Not Given Cyclobenzaprine HCl (Flexeril -) 10 mg PO TID PRN PRN Reason: MUSCLE SPASMS Last Admin: 07/24/19 13:31 Dose: 10 mg Docusate Sodium (Colace -) 100 mg PO BID PRN PRN Reason: CONSTIPATION Last Admin: 07/22/19 10:31 Dose: 100 mg Ceftriaxone Sodium 1 gm/ (Dextrose) 50 mls @ 100 mls/hr IVPB DAILY [facility]; Protocol Last Admin: 07/25/19 09:46 Dose: 100 mls/hr Meclizine HCl (Antivert -) 12.5 mg PO TID [facility] Last Admin: 07/25/19 14:45 Dose: Not Given Metoprolol Succinate (Toprol Xl -) 25 mg PO DAILY [facility] Last Admin: 07/25/19 09:47 Dose: 25 mg Miscellaneous (Lidoderm Patch Removal) 1 each MC DAILY@2200 [facility] Last Admin: 07/24/19 22:54 Dose: Not Given Oxycodone HCl (Roxicodone -) 5 mg PO Q6H PRN PRN Reason: PAIN 1-5 Last Admin: 07/25/19 11:42 Dose: 5 mg Polyethylene Glycol (Miralax (For Daily Use) -) 17 gm PO DAILY PRN PRN Reason: CONSTIPATION Last Admin: 07/22/19 10:33 Dose: 17 gm Rosuvastatin Calcium (Crestor -) 5 mg PO HS [facility] Last Admin: 07/24/19 22:56 Dose: Not Given Zolpidem Tartrate (Ambien -) 5 mg PO HS PRN PRN Reason: INSOMNIA Last Admin: 07/24/19 22:55 Dose: 5 mg Laboratory Results - last 24 hr 07/24/19 07/25/19 07/25/19 02:20 07:26 07:26 WBC 8.3 RBC 2.26 L Hgb 7.6 L Hct 22.2 L MCV 98.0 H MCH 33.6 MCHC 34.3 RDW 13.8 Plt Count 258 MPV 7.3 L Sodium 143 Potassium 3.3 L Chloride 110 H Carbon Dioxide 25 Anion Gap 8 BUN 14.9 Creatinine 0.7 Est GFR (CKD-EPI)AfAm 96.86 Est GFR (CKD-EPI)NonAf 83.57 Random Glucose 103 Calcium 7.9 L Blood Type A POSITIVE Antibody Screen Crossmatch 07/25/19 07/25/19 11:21 12:42 WBC 8.4 RBC 2.36 L Hgb 7.9 L Hct 23.3 L MCV 98.7 H MCH 33.4 MCHC 33.8 RDW 13.9 Plt Count 275 MPV 7.1 L Sodium Potassium Chloride Carbon Dioxide Anion Gap BUN Creatinine Est GFR (CKD-EPI)AfAm Est GFR (CKD-EPI)NonAf Random Glucose Calcium Blood Type A POSITIVE Antibody Screen Negative Crossmatch See Detail Microbiology 07/24/19 04:07 Urine - Urine Styles Urine Culture - Preliminary Lactose Fermenting Neg Bacilli 07/24/19 07:20 Blood - Peripheral Venous Blood Culture - Preliminary NO GROWTH OBTAINED AFTER 24 HOURS, INCUBATION TO CONTINUE FOR 4 DAYS. 07/24/19 02:20 Blood - Peripheral Venous Blood Culture - Preliminary NO GROWTH OBTAINED AFTER 24 HOURS, INCUBATION TO CONTINUE FOR 4 DAYS. CXR results and images reviewed, decreased effort ASSESSMENT AND PLAN: 79 year old female with chronic back pain, lumbar stenosis, osteoporosis, frequent falls, on chronic opiates and ambien presents after mechanical fall, missing a step and landing on her hip. No head injury/LOC. No preceding CP/ palpitations/lightheadedness. -Left superior/inferior pubic rami fracture -Mechanical fall -Acute on chronic anemia, suspect from blood loss from pelvic hematomam, compounded by hemodilution (IV fluids). -Sepsis, suspect due to complicated UTI from urinary retention -Urinary retention, suspect from poor ambulation/narcotics -Hypokalemia -HTN -HLD Plan: H/h overall plateaued. Will transfuse 1 unit PRBC. Persistent fevers.Urine cx noted. Continue ceftriaxone day 2. Encourage incentive spirometry. Blood cx neg so far. Voiding trial in 24 hours. Encourage OOB/PT Orthopedic input noted. DVTPPX with SCDs/ASA. Cotninue crestor/lisinopril/Toprol XL. Flexeril/oxycodone prn for pain. Replete K prn Dispo dc to [facility] in 48 hours if afebrile and able to clear voiding trial. Plan discussed with patient in detail, all questions answered.
[2019-07-25] MEDS: ROSUVASTATIN CA 5 MG TABLET (FP) PO SCH (22:13)
[2019-07-25] MEDS: ZOLPIDEM TARTRATE 5 MG TABLET PO PRN (22:14)
[2019-07-25] MEDS: LIDOCAINE PATCH REMOVAL MC SCH (22:15)
[2019-07-26] MEDS: MECLIZINE HCL 12.5 MG TABLET PO SCH ×3 (06:01→21:33)
[2019-07-26 08:07] LABS: HEMATOCRIT 22.4 % (32.4-45.2); HEMOGLOBIN 7.7 GM/dL (10.7-15.3); MCH 33.4 pg (25.7-33.7); MCHC 34.1 g/dl (32.0-36.0); MEAN PLT VOLUME 6.8 fl (7.5-11.1); PLATELET COUNT 294 K/MM3 (134-434); RBC 2.29 M/mm3 (3.60-5.2); WHITE BLOOD COUNT 7.1 K/mm3 (4.0-10.0)
[2019-07-26 08:23] LABS: BLOOD UREA NITROGEN 15.2 mg/dL (7-18); CALCIUM 8.3 mg/dL (8.5-10.1); CREATININE 0.8 mg/dL (0.55-1.3); MAGNESIUM 1.9 mg/dL (1.8-2.4); POTASSIUM 3.6 mmol/L (3.5-5.1)
[2019-07-26] MEDS: ACETAMINOPHEN 325 MG TABLET (FP) PO PRN ×3 (08:37→21:32)
[2019-07-26] MEDS: oxyCODONE HCL 5 MG TABLET PO PRN ×3 (08:38→21:33)
[2019-07-26] MEDS: metoPROLOL SUCCINATE 25 MG TAB.SR.24H (FP) PO SCH (10:57)
[2019-07-26] MEDS: CHOLESTYRAMINE/ASPARTAME 4 GM PACKET PO SCH (10:57)
[2019-07-26] MEDS: ASPIRIN 81 MG CHEWABLE TABLETS PO SCH (10:57)
[2019-07-26] MEDS: MAGNESIUM OXIDE 400 MG TABLET (FP) PO SCH (10:57)
[2019-07-26] MEDS ORDERED: cefTRIAXone SODIUM 1 GM VIAL ONE (12:36)
[2019-07-26] MEDS ORDERED: DEXTROSE 5%-WATER - 50 ML IVPB ONE (12:36)
[2019-07-26] MEDS: CEFTRIAXONE 1 GM in DEXTROSE 5%-WATER - 50 ML IVPB SCH (12:38)
--- NOTE | 2019-07-26 13:31 | PN ---
Physical Exam: SUBJECTIVE: Patient seen and examined at the bedside. Was febrile overnight. Patient in good spirits. States she continues to have pain in her hip. Stated she worked with PT yesterday and did better than the previous day. She denies any cp, sob, abd pain, n/v/c/d, cough, diaphoresis. OBJECTIVE: Vital Signs Period Temp Pulse Resp BP Sys/Martinez Pulse Ox Last 24 Hr 98.0 F-101.2 F 87-118 18-20 101-132/55-70 98 GENERAL: Pleasant, well-appearing elderly female. NAD. Cooperative. AAOx3. HEENT: Atraumatic, normocephalic. NECK: Trachea midline, full range of motion, supple. LUNGS: Breath sounds equal, clear to auscultation bilaterally, no wheezes, no crackles, no accessory muscle use. HEART: Regular rate and rhythm, S1, S2 without murmur, rub. ABDOMEN: Soft, non-tender nondistended, normoactive bowel sounds, no guarding, no rebound, no masses. EXTREMITIES: 2+ pulses, warm, well-perfused, no edema. Improved range of motion. NEUROLOGICAL: Cranial nerves II through XII grossly intact. Decreased strength on the LLE in flexion/extension, rotation, secondary to pain. No sensory deficits. PSYCH: Normal mood, normal affect. SKIN: Warm, dry, normal turgor, no rashes or lesions noted. Laboratory Results - last 24 hr 07/24/19 07/25/19 07/25/19 02:20 11:21 12:42 WBC 8.4 RBC 2.36 L Hgb 7.9 L Hct 23.3 L MCV 98.7 H MCH 33.4 MCHC 33.8 RDW 13.9 Plt Count 275 MPV 7.1 L Sodium Potassium Chloride Carbon Dioxide Anion Gap BUN Creatinine Est GFR (CKD-EPI)AfAm Est GFR (CKD-EPI)NonAf Random Glucose Calcium Magnesium Blood Type A POSITIVE A POSITIVE Antibody Screen Negative Crossmatch See Detail 07/26/19 07/26/19 07:35 07:35 WBC 7.1 RBC 2.29 L Hgb 7.7 L Hct 22.4 L MCV 98.0 H MCH 33.4 MCHC 34.1 RDW 14.0 Plt Count 294 MPV 6.8 L Sodium 143 Potassium 3.6 Chloride 110 H Carbon Dioxide 28 Anion Gap 6 L BUN 15.2 Creatinine 0.8 Est GFR (CKD-EPI)AfAm 82.42 Est GFR (CKD-EPI)NonAf 71.11 Random Glucose 98 Calcium 8.3 L Magnesium 1.9 Blood Type Antibody Screen Crossmatch Active Medications Generic Name Dose Route Start Last Admin Trade Name Freq PRN Reason Stop Dose Admin Acetaminophen 650 mg 07/24/19 01:56 07/26/19 08:37 Tylenol - PO 650 mg Q6H PRN Administration FEVER Aspirin 81 mg 07/23/19 10:45 07/26/19 10:57 Asa - PO 81 mg DAILY NINA Administration Cholestyramine Resin 4 gm 07/21/19 10:00 07/26/19 10:57 Questran Light Packet - PO Not Given DAILY NINA Cyclobenzaprine HCl 10 mg 07/20/19 03:57 07/24/19 13:31 Flexeril - PO 10 mg TID PRN Administration MUSCLE SPASMS Docusate Sodium 100 mg 07/21/19 18:28 07/22/19 10:31 Colace - PO 100 mg BID PRN Administration CONSTIPATION Ceftriaxone Sodium 1 gm/ 50 mls @ 100 mls/hr 07/24/19 10:00 07/26/19 12:38 Dextrose IVPB 100 mls/hr DAILY NINA Administration Protocol Magnesium Oxide 800 mg 07/26/19 10:00 07/26/19 10:57 Mag-Ox - PO 07/31/19 09:59 800 mg DAILY NINA Administration Meclizine HCl 12.5 mg 07/20/19 14:00 07/26/19 13:23 Antivert - PO Not Given TID NINA Metoprolol Succinate 25 mg 07/20/19 10:00 07/26/19 10:57 Toprol Xl - PO 25 mg DAILY NINA Administration Miscellaneous 1 each 07/19/19 22:00 07/25/19 22:15 Lidoderm Patch Removal MC 1 each DAILY@2200 NINA Administration Oxycodone HCl 5 mg 07/20/19 10:47 07/26/19 08:38 Roxicodone - PO 5 mg Q6H PRN Administration PAIN 1-5 Polyethylene Glycol 17 gm 07/21/19 18:28 07/22/19 10:33 Miralax (For Daily Use) - PO 17 gm DAILY PRN Administration CONSTIPATION Rosuvastatin Calcium 5 mg 07/20/19 22:00 07/25/19 22:13 Crestor - PO Not Given HS NINA Zolpidem Tartrate 5 mg 07/20/19 22:00 07/25/19 22:14 Ambien - PO 5 mg HS PRN Administration INSOMNIA ASSESSMENT/PLAN: Connie Red is a 79 year old female with a past medical history of HTN, chronic back pain, lumbar stenosis, osteoporosis, frequent falls (last one in 2017 requiring vertebroplasty sx), on chronic opiates and ambien admitted after witnessed mechanical fall resulting in L pubic ramus fracture. Pubic Rami fracture; s/p mechanical fall. Pt has worsening pain upon ROM. Imaging studies showed: * Pelvic XR- Acute minimally displaced fractures left inferior and superior pubic rami. Left femoral neck evaluation somewhat limited by artifact from overlying clothing/drapery. No dislocation. * CT pelvis showing a comminuted fracture through the medical portion of the L pubic ramus near the symphysis pubis and hyperdense soft tissue mass superior and to the right of the fracture suspicious for a hematoma * CT head and c-spine reviewed: no acute pathology - Bedrest and fall precautions - Cont home med: Oxy 5 Q6H PRN for pain - Orthopedics consulted, Dr. Calvo for evaluation, recommending PT, weight bearing as tolerated, pain management, SNF placement, DVT prophylaxis (aspirin) for 6 weeks, and to follow up with orthopedist in 2 weeks - Repeat CTAP (07/26) showed increased hematoma size (7.5x4.6x2.2cm) with no acute hemorrhage - started on aspirin 81mg as per ortho for DVT prophylaxis, held pending plateau of H/H - continue PT, maximum ambulation 20ft, improving - spoken with orthopedic PA Vipin Montejo, stated that she is clear from ortho perspective and that hematoma may take up to 8 weeks to heal and patient should have repeat pelvic x-ray in 4 week Urinary Retention/Sepsis secondary to UTI - CTAP showing mild bilateral hydronephrosis - patient stated that she has difficulty excreting urine, ramirez catheter placed - UA showing + nitrities, 1+ Noah 63 WBC, 2468 bacteria - Ucs showing Klebsiella with multiple sensitivities - Blood cxs negative - ceftriaxone 1gm day 3, will change abx pending culture sensitivities - will need to dc ramirez prior to d/c to [place] - fevers continue, CT showing RLL infiltrate and pleural effusion - ID consulted due to continued fevers on antibiotics Leukocytosis - Resolved. Likely secondary to fall and fracture - CXR with no acute pathology - treating for UTI likely due to retention - CTA with no PE HTN/HLD - Cont home meds: Toprol XL 25, Crestor 5 HS, Cholestyramine 4, hold Lisinopril 10 due to infection and low BP Chronic Back Pain - Cont home med: Oxycodone 5 Q6H PRN, Flexeril 10 TID Anemia - hematoma increased with no acute hemorrhage as per CT 07/26/19, CBC stable - will transfuse 1 unit due to decreased H/H, continue to monitor Prophylaxis - DVT: SCDs. Per ortho, started ASA on 07/23 x6 weeks, held pending plateau of H/ H - encourage incentive spirometry FEN - no standing fluids, low threshold to resume if patient become hypotensive - continue to monitor electrolytes and replete as necessary. will monitor Mg, repleted - Chol/Na restricted diet Dispo - continue to monitor on Med-surg - will go to [place] pending resolution of fevers Visit type - Emergency Visit Emergency Visit: Yes ED Registration Date: 07/20/19 Care time: The patient presented to the Emergency Department on the above date and was hospitalized for further evaluation of their emergent condition. - New Patient This patient is new to me today: No - Critical Care Critical Care patient: No
--- NOTE | 2019-07-26 15:32 | PN ---
Teaching Attending Note Name of Resident: Den Viramontes ATTENDING PHYSICIAN STATEMENT I saw and evaluated the patient. I reviewed the resident's note and discussed the case with the resident. I agree with the resident's findings and plan as documented with exceptions below. SUBJECTIVE: Patient seen and examined. some cough but no dyspnea. left groin pain, improved with medications. No new urinary symptoms, abdominal pain or dysuria noted. OBJECTIVE: Vital Signs Period Temp Pulse Resp BP Sys/Martinez Pulse Ox Last 24 Hr 98.0 F-101.2 F 87-118 18-20 110-132/59-70 98 Intake & Output 07/23/19 07/24/19 07/25/19 07/26/19 23:59 23:59 23:59 23:59 Intake Total 400 250 250 Output Total 2608 999 4132 300 Balance -600 -650 -1750 -300 General: sitting in bed, no acute distress CVS:S1S2 regular Chest; decreased effort, few basilar rales Abdomen:Soft, NT throughout, No suprapubic or CVA tenderness Extremities; no edema Home Medications Medication Instructions Recorded Aspirin 81 mg PO DAILY #42 tab.chew 07/20/19 Cholestyramine/Aspartame 4 gm PO DAILY 07/20/19 [Cholestyramine Light Packet] Cyclobenzaprine HCl 10 mg PO TID 07/20/19 Hydrochlorothiazide 50 mg PO DAILY 07/20/19 Hydrocodone/Acetaminophen [[place] 1 each PO QID PRN 07/20/19 5-325 Tablet] Lisinopril [Prinivil] 10 mg PO DAILY 07/20/19 Meclizine HCl 12.5 mg PO TID 07/20/19 Metoprolol Succinate [Toprol Xl] 25 mg PO DAILY 07/20/19 Raloxifene HCl 60 mg PO DAILY 07/20/19 Rosuvastatin Calcium [Crestor] 5 mg PO DAILY 07/20/19 Zolpidem Tartrate 10 mg PO HS 07/20/19 Active Medications Acetaminophen (Tylenol -) 650 mg PO Q6H PRN PRN Reason: FEVER Last Admin: 07/26/19 08:37 Dose: 650 mg Aspirin (Asa -) 81 mg PO DAILY NINA Last Admin: 07/26/19 10:57 Dose: 81 mg Cholestyramine Resin (Questran Light Packet -) 4 gm PO DAILY [facility] Last Admin: 07/26/19 10:57 Dose: Not Given Cyclobenzaprine HCl (Flexeril -) 10 mg PO TID PRN PRN Reason: MUSCLE SPASMS Last Admin: 07/24/19 13:31 Dose: 10 mg Docusate Sodium (Colace -) 100 mg PO BID PRN PRN Reason: CONSTIPATION Last Admin: 07/22/19 10:31 Dose: 100 mg Ceftriaxone Sodium 1 gm/ (Dextrose) 50 mls @ 100 mls/hr IVPB DAILY [facility]; Protocol Last Admin: 07/26/19 12:38 Dose: 100 mls/hr Magnesium Oxide (Mag-Ox -) 800 mg PO DAILY [facility] Stop: 07/31/19 09:59 Last Admin: 07/26/19 10:57 Dose: 800 mg Meclizine HCl (Antivert -) 12.5 mg PO TID [facility] Last Admin: 07/26/19 13:23 Dose: Not Given Metoprolol Succinate (Toprol Xl -) 25 mg PO DAILY NINA Last Admin: 07/26/19 10:57 Dose: 25 mg Miscellaneous (Lidoderm Patch Removal) 1 each MC DAILY@2200 [facility] Last Admin: 07/25/19 22:15 Dose: 1 each Oxycodone HCl (Roxicodone -) 5 mg PO Q6H PRN PRN Reason: PAIN 1-5 Last Admin: 07/26/19 08:38 Dose: 5 mg Polyethylene Glycol (Miralax (For Daily Use) -) 17 gm PO DAILY PRN PRN Reason: CONSTIPATION Last Admin: 07/22/19 10:33 Dose: 17 gm Rosuvastatin Calcium (Crestor -) 5 mg PO HS NINA Last Admin: 07/25/19 22:13 Dose: Not Given Zolpidem Tartrate (Ambien -) 5 mg PO HS PRN PRN Reason: INSOMNIA Last Admin: 07/25/19 22:14 Dose: 5 mg Laboratory Results - last 24 hr 07/25/19 07/26/19 07/26/19 11:21 07:35 07:35 WBC 7.1 RBC 2.29 L Hgb 7.7 L Hct 22.4 L MCV 98.0 H MCH 33.4 MCHC 34.1 RDW 14.0 Plt Count 294 MPV 6.8 L Sodium 143 Potassium 3.6 Chloride 110 H Carbon Dioxide 28 Anion Gap 6 L BUN 15.2 Creatinine 0.8 Est GFR (CKD-EPI)AfAm 82.42 Est GFR (CKD-EPI)NonAf 71.11 Random Glucose 98 Calcium 8.3 L Magnesium 1.9 Blood Type A POSITIVE Antibody Screen Negative Crossmatch See Detail CT chest/Abdomen/Pelvis results noted ASSESSMENT AND PLAN: 79 year old female with chronic back pain, lumbar stenosis, osteoporosis, frequent falls, on chronic opiates and ambien presents after mechanical fall, missing a step and landing on her hip. No head injury/LOC. No preceding CP/ palpitations/lightheadedness. -Left superior/inferior pubic rami fracture -Mechanical fall -Acute on chronic anemia, suspect from blood loss from pelvic hematoma, compounded by hemodilution (IV fluids). -Sepsis, RLL PNA(?Hospital acquired vs aspiration), vs complicated UTI in the setting of urinary retention -Urinary retention, suspect from poor ambulation/narcotics -Hypokalemia -HTN -HLD Plan: CT A/P noted, increased size of hematoma. Discussed with orthopedic, no additional intervention. H/H overall seems plateaued, hemodynamics stable, will transfuse 1 unit PRBC and monitor closely (patient agreable to transfusion today). Will hold ASA for now, resume if h/h responds appropriately to transfusion and no new concerns. CT chest noted, ?RLL infiltrate Persistent fevers on ceftriaxone. ID consult. Follow up urine cultures. Voiding trial in 24-48 hours as more ambulatory. Encourage incentive spirometry. Blood cx neg so far. Encourage OOB/PT DVTPPX with SCDs. ASA on hold as above for now. Cotninue crestor. Lisinopril/Toprol XL as hemodynamics tolerate. Flexeril/oxycodone prn for pain. Replete K prn Dispo dc to [facility] when improved. Will need voiding trial prior to dc. Plan discussed with patient in detail, all questions answered.
[2019-07-26] MEDS: ZOLPIDEM TARTRATE 5 MG TABLET PO PRN (21:32)
[2019-07-26] MEDS: LIDOCAINE PATCH REMOVAL MC SCH (21:33)
[2019-07-26] MEDS: ROSUVASTATIN CA 5 MG TABLET (FP) PO SCH (21:33)
[2019-07-27] MEDS: MECLIZINE HCL 12.5 MG TABLET PO SCH ×4 (05:33→21:24)
[2019-07-27] MEDS: ACETAMINOPHEN 325 MG TABLET (FP) PO PRN ×3 (06:22→18:09)
[2019-07-27] MEDS: oxyCODONE HCL 5 MG TABLET PO PRN ×4 (06:23→18:10)
[2019-07-27 08:12] LABS: HEMATOCRIT 27.3 % (32.4-45.2); HEMOGLOBIN 9.1 GM/dL (10.7-15.3); MCHC 33.4 g/dl (32.0-36.0); MEAN PLT VOLUME 6.7 fl (7.5-11.1); PLATELET COUNT 351 K/MM3 (134-434); RBC 2.84 M/mm3 (3.60-5.2); RDW 15.9 % (11.6-15.6); WHITE BLOOD COUNT 7.7 K/mm3 (4.0-10.0)
[2019-07-27 08:30] LABS: BLOOD UREA NITROGEN 13.4 mg/dL (7-18); CALCIUM 8.7 mg/dL (8.5-10.1); CREATININE 0.8 mg/dL (0.55-1.3); MAGNESIUM 2.1 mg/dL (1.8-2.4); POTASSIUM 4.3 mmol/L (3.5-5.1)
[2019-07-27] MEDS ORDERED: cefTRIAXone SODIUM 1 GM VIAL ONE (08:44)
[2019-07-27] MEDS ORDERED: DEXTROSE 5%-WATER - 50 ML IVPB ONE (08:44)
[2019-07-27] MEDS: ACETAMINOPHEN/CAFFEINE/BUTALBITAL 1 TAB PO ONE ×2 (10:04→17:44)
[2019-07-27] MEDS: metoPROLOL SUCCINATE 25 MG TAB.SR.24H (FP) PO SCH (10:05)
[2019-07-27] MEDS: CEFTRIAXONE 1 GM in DEXTROSE 5%-WATER - 50 ML IVPB SCH (10:12)
[2019-07-27] MEDS: MAGNESIUM OXIDE 400 MG TABLET (FP) PO SCH (10:36)
[2019-07-27] MEDS: CHOLESTYRAMINE/ASPARTAME 4 GM PACKET PO SCH (13:20)
[2019-07-27 14:24] VITALS: BMI 20.2
--- NOTE | 2019-07-27 15:29 | PN ---
Progress Note (short form) - Note Progress Note: ID CONSULT DICTATED S/P PELVIC FRACTURE PELVIC HEMATOMA FEVER ? SOURCE ? ATELECTASIS ? HEMATOMA RESORPTION UTI SUBSTITUTE AUGMENTIN 875MG PO BID X 7D
--- NOTE | 2019-07-27 16:18 | PN ---
Physical Exam: SUBJECTIVE: Patient seen and examined at the bedside. Stated that she felt good but continued to have pain in her hip and occasional headaches. Endorsed pain in the hip. Noted that she was eager to get to rehab. Denied cp, sob, abd pain , fever, chills, n/v/c/d, numbness, tingling. OBJECTIVE: Vital Signs Period Temp Pulse Resp BP Sys/Martinez Pulse Ox Last 24 Hr 98.5 F-99.3 F 83-90 15-20 120-137/63-96 GENERAL: Pleasant, well-appearing elderly female. NAD. Cooperative. AAOx3. HEENT: Atraumatic, normocephalic. NECK: Trachea midline, full range of motion, supple. LUNGS: Breath sounds equal, clear to auscultation bilaterally, no wheezes, no crackles, no accessory muscle use. HEART: Regular rate and rhythm, S1, S2 without murmur, rub. ABDOMEN: Soft, non-tender nondistended, normoactive bowel sounds, no guarding, no rebound, no masses. EXTREMITIES: 2+ pulses, warm, well-perfused, no edema. Improved range of motion. NEUROLOGICAL: Cranial nerves II through XII grossly intact. Decreased strength on the LLE in flexion/extension, rotation, secondary to pain improved from previous exam. No sensory deficits. PSYCH: Normal mood, normal affect. SKIN: Warm, dry, normal turgor, no rashes or lesions noted. Laboratory Results - last 24 hr 07/27/19 07/27/19 07:28 07:28 WBC 7.7 RBC 2.84 L Hgb 9.1 L Hct 27.3 L D MCV 96.0 MCH 32.0 MCHC 33.4 RDW 15.9 H D Plt Count 351 MPV 6.7 L Sodium 143 Potassium 4.3 Chloride 108 H Carbon Dioxide 29 Anion Gap 6 L BUN 13.4 Creatinine 0.8 Est GFR (CKD-EPI)AfAm 82.42 Est GFR (CKD-EPI)NonAf 71.11 Random Glucose 97 Calcium 8.7 Magnesium 2.1 Active Medications Generic Name Dose Route Start Last Admin Trade Name Freq PRN Reason Stop Dose Admin Acetaminophen 650 mg 07/24/19 01:56 07/27/19 13:39 Tylenol - PO 650 mg Q6H PRN Administration FEVER Amoxicillin/Clavulanate Potassium 1 tab 07/27/19 17:30 Augmentin - 875mg Tablet PO BID@0800,1730 [facility] Aspirin 81 mg 07/23/19 10:45 07/26/19 10:57 Asa - PO 81 mg DAILY NINA Administration Cholestyramine Resin 4 gm 07/21/19 10:00 07/27/19 13:20 Questran Light Packet - PO Not Given DAILY NINA Cyclobenzaprine HCl 10 mg 07/20/19 03:57 07/24/19 13:31 Flexeril - PO 10 mg TID PRN Administration MUSCLE SPASMS Docusate Sodium 100 mg 07/21/19 18:28 07/22/19 10:31 Colace - PO 100 mg BID PRN Administration CONSTIPATION Magnesium Oxide 800 mg 07/26/19 10:00 07/27/19 10:36 Mag-Ox - PO 07/31/19 09:59 800 mg DAILY NINA Administration Meclizine HCl 12.5 mg 07/20/19 14:00 07/27/19 13:14 Antivert - PO Not Given TID [facility] Metoprolol Succinate 25 mg 07/20/19 10:00 07/27/19 10:05 Toprol Xl - PO 25 mg DAILY [facility] Administration Miscellaneous 1 each 07/19/19 22:00 07/26/19 21:33 Lidoderm Patch Removal MC 1 each DAILY@2200 [facility] Administration Oxycodone HCl 5 mg 07/20/19 10:47 07/27/19 13:42 Roxicodone - PO 5 mg Q6H PRN Administration PAIN 1-5 Polyethylene Glycol 17 gm 07/21/19 18:28 07/22/19 10:33 Miralax (For Daily Use) - PO 17 gm DAILY PRN Administration CONSTIPATION Rosuvastatin Calcium 5 mg 07/20/19 22:00 07/26/19 21:33 Crestor - PO Not Given HS NINA Zolpidem Tartrate 5 mg 07/20/19 22:00 07/26/19 21:32 Ambien - PO 5 mg HS PRN Administration INSOMNIA ASSESSMENT/PLAN: Connie Red is a 79 year old female with a past medical history of HTN, chronic back pain, lumbar stenosis, osteoporosis, frequent falls (last one in 2017 requiring vertebroplasty sx), on chronic opiates and ambien admitted after witnessed mechanical fall resulting in L pubic ramus fracture. Pubic Rami fracture; s/p mechanical fall. Pt has worsening pain upon ROM. Imaging studies showed: * Pelvic XR- Acute minimally displaced fractures left inferior and superior pubic rami. Left femoral neck evaluation somewhat limited by artifact from overlying clothing/drapery. No dislocation. * CT pelvis showing a comminuted fracture through the medical portion of the L pubic ramus near the symphysis pubis and hyperdense soft tissue mass superior and to the right of the fracture suspicious for a hematoma * CT head and c-spine reviewed: no acute pathology - Bedrest and fall precautions - Cont home med: Oxy 5 Q6H PRN for pain - Orthopedics consulted, Dr. Calvo for evaluation, recommending PT, weight bearing as tolerated, pain management, SNF placement, DVT prophylaxis (aspirin) for 6 weeks, and to follow up with orthopedist in 2 weeks - Repeat CTAP (07/26) showed increased hematoma size (7.5x4.6x2.2cm) with no acute hemorrhage - started on aspirin 81mg as per ortho for DVT prophylaxis, held pending plateau of H/H - continue PT - spoken with orthopedic PA Vipin Montejo, stated that she is clear from ortho perspective and that hematoma may take up to 8 weeks to heal and patient should have repeat pelvic x-ray in 4 week - OOB to chair Urinary Retention/Sepsis secondary to UTI - CTAP showing mild bilateral hydronephrosis - patient stated that she has difficulty excreting urine, ramirez catheter placed , will remove today for voiding trial - UA showing + nitrities, 1+ Noah 63 WBC, 2468 bacteria - Ucs showing Klebsiella with multiple sensitivities - Blood cxs negative - ID consulted due to continued fevers on antibiotics - start Augmentin 875mg bid for 7 days as per ID - continue to monitor for fevers, will need be afebrile for 48 hours Leukocytosis - Resolved. Likely secondary to fall and fracture - CXR with no acute pathology - treating for UTI likely due to retention - CTA with no PE HTN/HLD - Cont home meds: Toprol XL 25, Crestor 5 HS, Cholestyramine 4, hold Lisinopril 10 due to infection and low BP Chronic Back Pain - Cont home med: Oxycodone 5 Q6H PRN, Flexeril 10 TID Anemia - hematoma increased with no acute hemorrhage as per CT 07/26/19, CBC stable - s/p 1 unit, Hgb 9.1, continue to monitor Prophylaxis - DVT: SCDs. Per ortho, started ASA on 07/23 x6 weeks, held pending plateau of H/ H - encourage incentive spirometry FEN - no standing fluids, low threshold to resume if patient become hypotensive - continue to monitor electrolytes and replete as necessary. will monitor Mg, repleted - Chol/Na restricted diet Dispo - continue to monitor on Med-surg - will go to [facility] pending resolution of fevers and voiding trial Visit type - Emergency Visit Emergency Visit: Yes ED Registration Date: 07/20/19 Care time: The patient presented to the Emergency Department on the above date and was hospitalized for further evaluation of their emergent condition. - New Patient This patient is new to me today: No - Critical Care Critical Care patient: No
--- NOTE | 2019-07-27 16:49 | CONS ---
DATE OF CONSULTATION: DATE OF DICTATION: 07/27/2019 INFECTIOUS DISEASE CONSULTATION HISTORY OF PRESENT ILLNESS: The patient is a 79-year-old female who is evaluated for fever. She was admitted to the hospital on August 18, 2019, after a mechanical fall at home. She sustained left hip pain. She was found on imaging to have a comminuted fracture of the left pubic ramus. Her course was complicated by the development of a hematoma and anemia, for which she required transfusion of packed red blood cells. She also had developed a fever and an elevated white blood cell count. She required the placement of a Styles catheter after urinary retention. Cultures were obtained. She was empirically treated with ceftriaxone. Blood cultures were negative. Urine culture grew a Klebsiella sensitive to ceftriaxone. The patient complains of a tremendous amount of pain in the pelvis with weight-bearing. She denies any recurrent fever or shaking chills. No pulmonary complaints. No chest pain, shortness of breath, cough or sputum production. No vomiting. Some soft bowel movements reported. Styles catheter has just been removed. PAST MEDICAL HISTORY: Positive for hypertension, chronic low back pain, osteoporosis. ALLERGIES: No known allergies. MEDICATIONS: Ceftriaxone, aspirin, Questran, Flexeril, Toprol, Ambien. SOCIAL HISTORY: The patient resides in [place]. Nonsmoker, nondrinker. REVIEW OF SYSTEMS: Neurologic: No head trauma, loss of consciousness, seizure activity, or focal weakness. Cardiac: Negative for chest pain or palpitations. Respiratory: As per HPI. Gastrointestinal: Negative for vomiting. Positive soft BMs. Genitourinary: Positive for urinary tract infection. LABORATORY DATA: White count 7.7, hematocrit 27.3, platelets 351. Creatinine 0.8. Urinalysis with 63 white cells. Urine culture: Klebsiella. Blood cultures negative. Influenza swab negative. PHYSICAL EXAMINATION: General: She is awake and alert, out of bed in chair. She is not acutely toxic appearing. Vital Signs: Temperature 98.5, blood pressure 137/96, pulse 90 and regular, respirations 20 per minute. HEENT: Sclerae anicteric. Cardiac: Heart sounds S1, S2. Lungs: Clear. Abdomen: Soft, nontender. Extremities: Negative Homans sign. Negative edema. IMPRESSION: 1. Status post pelvic fracture. 2. Pelvic hematoma. 3. Fever. 4. Urinary tract infection. Potential sources for fever include atelectasis as seen on CAT scan of the chest, at the right base, hematoma resorption. No evidence of systemic infection at this time. Would substitute Augmentin 875 mg p.o. b.i.d. for an additional 7 days, physical therapy, out of bed to chair, incentive spirometry. Thank you for the kind referral.* CARO CHRISTIAN M.D. [id number]
[2019-07-27] MEDS: AMOX TR/POT CLAV 875MG/125MG TABLETS (FP) PO SCH (17:43)
--- NOTE | 2019-07-27 17:51 | PN ---
Teaching Attending Note Name of Resident: Den Viramontes ATTENDING PHYSICIAN STATEMENT I saw and evaluated the patient. I reviewed the resident's note and discussed the case with the resident. I agree with the resident's findings and plan as documented. SUBJECTIVE: Complains of pelvic pain on weight bearing/ambulating. OBJECTIVE: Fevers appear to be resolved. Tmax overnight 99.3 Last Vital Signs Temp Pulse Resp BP Pulse Ox 98.5 F 89 15 120/73 98 07/27/19 15:00 07/27/19 15:00 07/27/19 15:00 07/27/19 15:00 07/25/19 21:00 Neuro - AAO x 3. No focal neuro deficits. HEART: S1S2, RRR LUNGS: Clear to auscultation ABDOMEN: Soft, non-tender, non-distended, normal BS EXTREMITIES: No edema, no calf tenderness. Laboratory Results - last 24 hr 07/27/19 07/27/19 07:28 07:28 WBC 7.7 RBC 2.84 L Hgb 9.1 L Hct 27.3 L D MCV 96.0 MCH 32.0 MCHC 33.4 RDW 15.9 H D Plt Count 351 MPV 6.7 L Sodium 143 Potassium 4.3 Chloride 108 H Carbon Dioxide 29 Anion Gap 6 L BUN 13.4 Creatinine 0.8 Est GFR (CKD-EPI)AfAm 82.42 Est GFR (CKD-EPI)NonAf 71.11 Random Glucose 97 Calcium 8.7 Magnesium 2.1 Current Medications Generic Name Dose Route Start Last Admin Trade Name Freq PRN Reason Stop Dose Admin Acetaminophen 650 mg 07/24/19 01:56 07/27/19 13:39 Tylenol - PO 650 mg Q6H PRN Administration FEVER Amoxicillin/Clavulanate Potassium 1 tab 07/27/19 17:30 Augmentin - 875mg Tablet PO BID@0800,1730 NINA Aspirin 81 mg 07/23/19 10:45 07/26/19 10:57 Asa - PO 81 mg DAILY NINA Administration Cholestyramine Resin 4 gm 07/21/19 10:00 07/27/19 13:20 Questran Light Packet - PO Not Given DAILY NINA Cyclobenzaprine HCl 10 mg 07/20/19 03:57 07/24/19 13:31 Flexeril - PO 10 mg TID PRN Administration MUSCLE SPASMS Docusate Sodium 100 mg 07/21/19 18:28 07/22/19 10:31 Colace - PO 100 mg BID PRN Administration CONSTIPATION Magnesium Oxide 800 mg 07/26/19 10:00 07/27/19 10:36 Mag-Ox - PO 07/31/19 09:59 800 mg DAILY NINA Administration Meclizine HCl 12.5 mg 07/20/19 14:00 07/27/19 13:14 Antivert - PO Not Given TID NINA Metoprolol Succinate 25 mg 07/20/19 10:00 07/27/19 10:05 Toprol Xl - PO 25 mg DAILY NINA Administration Miscellaneous 1 each 07/19/19 22:00 07/26/19 21:33 Lidoderm Patch Removal MC 1 each DAILY@2200 [facility] Administration Oxycodone HCl 5 mg 07/20/19 10:47 07/27/19 13:42 Roxicodone - PO 5 mg Q6H PRN Administration PAIN 1-5 Polyethylene Glycol 17 gm 07/21/19 18:28 07/22/19 10:33 Miralax (For Daily Use) - PO 17 gm DAILY PRN Administration CONSTIPATION Rosuvastatin Calcium 5 mg 07/20/19 22:00 07/26/19 21:33 Crestor - PO Not Given HS [facility] Zolpidem Tartrate 5 mg 07/20/19 22:00 07/26/19 21:32 Ambien - PO 5 mg HS PRN Administration INSOMNIA Home Medications Medication Instructions Recorded Aspirin 81 mg PO DAILY #42 tab.chew 07/20/19 Cholestyramine/Aspartame 4 gm PO DAILY 07/20/19 [Cholestyramine Light Packet] Cyclobenzaprine HCl 10 mg PO TID 07/20/19 Hydrochlorothiazide 50 mg PO DAILY 07/20/19 Hydrocodone/Acetaminophen [[place] 1 each PO QID PRN 07/20/19 5-325 Tablet] Lisinopril [Prinivil] 10 mg PO DAILY 07/20/19 Meclizine HCl 12.5 mg PO TID 07/20/19 Metoprolol Succinate [Toprol Xl] 25 mg PO DAILY 07/20/19 Raloxifene HCl 60 mg PO DAILY 07/20/19 Rosuvastatin Calcium [Crestor] 5 mg PO DAILY 07/20/19 Zolpidem Tartrate 10 mg PO HS 07/20/19 ASSESSMENT AND PLAN: 79 year old female with chronic back pain, lumbar stenosis, osteoporosis, frequent falls, on chronic opiates and ambien presents after mechanical fall, missing a step and landing on her hip. No head injury/LOC. No preceding CP/ palpitations/lightheadedness. 1. Left superior and inferior pubic rami fractures s/p mechanical fall Seen by Ortho - not for srgical intervention PT Pain control with Oxycodone PRN DVT Px with Aspirin held due to worsening hematoma 2. Sepsis (fever, tachycardia) secondary to UTI CTA - no PE, RLL atelectasis Urine Cx positive for Klebsiella, treated for Ceftriaxone Fevers starting to resolve, Tmax overnight 99.3 Seen by ID - Abx changed to oral Augmentin. 4. HTN - Continue Lisinopril, Toprol XL 5. HLD - Continue Crestor 6. Chronic back pain - Continue Flexeril as needed, oxycodone as needed 7. Anemia, likely secondary to acute blood loss (pelvic hematoma) and dilution due to IV hydration - H/H stable s/p 1 unit PRBCs. 8. Urinary retention - TOV today. Dispo - Accepted to [facility] once fever free for > 48 hours and able to spontaneously void urine.
[2019-07-27] MEDS: ROSUVASTATIN CA 5 MG TABLET (FP) PO SCH (21:24)
[2019-07-27] MEDS: ZOLPIDEM TARTRATE 5 MG TABLET PO PRN (21:24)
[2019-07-27] MEDS: CYCLOBENZAPRINE HCL 10 MG TABLET (FP) PO PRN (21:24)
[2019-07-27] MEDS: LIDOCAINE PATCH REMOVAL MC SCH (21:25)
[2019-07-28] MEDS: oxyCODONE HCL 5 MG TABLET PO PRN ×4 (01:12→18:43)
[2019-07-28] MEDS: ACETAMINOPHEN 325 MG TABLET (FP) PO PRN ×3 (01:12→16:46)
[2019-07-28] MEDS: MECLIZINE HCL 12.5 MG TABLET PO SCH ×3 (05:00→22:40)
[2019-07-28] MEDS ORDERED: ACETAMINOPHEN/CAFFEINE/BUTALBITAL 1 TAB PO ONE (07:50)
[2019-07-28] MEDS: AMOX TR/POT CLAV 875MG/125MG TABLETS (FP) PO SCH ×2 (08:14→18:39)
[2019-07-28] MEDS: ONDANSETRON 4 MG TABLET PO PRN ×2 (08:32→18:39)
[2019-07-28 09:39] LABS: HEMATOCRIT 27.5 % (32.4-45.2); HEMOGLOBIN 9.2 GM/dL (10.7-15.3); MCH 32.2 pg (25.7-33.7); MCHC 33.6 g/dl (32.0-36.0); MEAN CELL VOLUME 95.8 fl (80-96); MEAN PLT VOLUME 6.7 fl (7.5-11.1); PLATELET COUNT 387 K/MM3 (134-434); RBC 2.87 M/mm3 (3.60-5.2); RDW 15.4 % (11.6-15.6); WHITE BLOOD COUNT 8.4 K/mm3 (4.0-10.0)
[2019-07-28] MEDS: metoPROLOL SUCCINATE 25 MG TAB.SR.24H (FP) PO SCH (10:17)
[2019-07-28] MEDS: MAGNESIUM OXIDE 400 MG TABLET (FP) PO SCH (10:17)
[2019-07-28] MEDS: CHOLESTYRAMINE/ASPARTAME 4 GM PACKET PO SCH (10:17)
--- NOTE | 2019-07-28 11:39 | PN ---
Physical Exam: SUBJECTIVE: Patient seen and examined at the bedside. Overnight, patient was unable to void and had straight cath to void. In the morning, the patient continued to feel the need to void but was unable to. Continued to endorse pain in the hip with ambulation and movement. Endorsed headache. Stated she had some loose stools, non malodorous, non-watery, non-bloody. Denied cp, sob, n/v, numbness, tingling, visual changes. OBJECTIVE: Vital Signs Period Temp Pulse Resp BP Sys/Martinez Pulse Ox Last 24 Hr 97.8 F-98.6 F 60-102 15-20 119-141/57-77 GENERAL: Pleasant, well-appearing elderly female. NAD. Cooperative. AAOx3. HEENT: Atraumatic, normocephalic. NECK: Trachea midline, full range of motion, supple. LUNGS: Breath sounds equal, clear to auscultation bilaterally, no wheezes, no crackles, no accessory muscle use. HEART: Regular rate and rhythm, S1, S2 without murmur, rub. ABDOMEN: Soft, non-tender nondistended, normoactive bowel sounds, no guarding, no rebound, no masses. EXTREMITIES: 2+ pulses, warm, well-perfused, no edema. Improved range of motion. NEUROLOGICAL: Cranial nerves II through XII grossly intact. Decreased strength on the LLE in flexion/extension, rotation, secondary to pain. No sensory deficits. PSYCH: Normal mood, normal affect. SKIN: Warm, dry, normal turgor, no rashes or lesions noted. Laboratory Results - last 24 hr 07/28/19 08:05 WBC 8.4 RBC 2.87 L Hgb 9.2 L Hct 27.5 L MCV 95.8 MCH 32.2 MCHC 33.6 RDW 15.4 Plt Count 387 MPV 6.7 L Active Medications Generic Name Dose Route Start Last Admin Trade Name Freq PRN Reason Stop Dose Admin Acetaminophen 650 mg 07/24/19 01:56 07/28/19 06:50 Tylenol - PO 650 mg Q6H PRN Administration FEVER Amoxicillin/Clavulanate Potassium 1 tab 07/27/19 17:30 07/28/19 08:14 Augmentin - 875mg Tablet PO 1 tab BID@0800,1730 NINA Administration Aspirin 81 mg 07/23/19 10:45 07/26/19 10:57 Asa - PO 81 mg DAILY NINA Administration Cholestyramine Resin 4 gm 07/21/19 10:00 07/28/19 10:17 Questran Light Packet - PO Not Given DAILY NINA Cyclobenzaprine HCl 10 mg 07/20/19 03:57 07/27/19 21:24 Flexeril - PO 10 mg TID PRN Administration MUSCLE SPASMS Docusate Sodium 100 mg 07/21/19 18:28 07/22/19 10:31 Colace - PO 100 mg BID PRN Administration CONSTIPATION Magnesium Oxide 800 mg 07/26/19 10:00 07/28/19 10:17 Mag-Ox - PO 07/31/19 09:59 800 mg DAILY NINA Administration Meclizine HCl 12.5 mg 07/20/19 14:00 07/28/19 05:00 Antivert - PO Not Given TID NINA Metoprolol Succinate 25 mg 07/20/19 10:00 07/28/19 10:17 Toprol Xl - PO 25 mg DAILY NINA Administration Miscellaneous 1 each 07/19/19 22:00 07/27/19 21:25 Lidoderm Patch Removal MC Not Given DAILY@2200 NINA Ondansetron HCl 4 mg 07/28/19 07:51 07/28/19 08:32 Zofran - PO 4 mg BID PRN Administration NAUSEA Oxycodone HCl 5 mg 07/20/19 10:47 07/28/19 06:50 Roxicodone - PO 5 mg Q6H PRN Administration PAIN 1-5 Polyethylene Glycol 17 gm 07/21/19 18:28 07/22/19 10:33 Miralax (For Daily Use) - PO 17 gm DAILY PRN Administration CONSTIPATION Rosuvastatin Calcium 5 mg 07/20/19 22:00 07/27/19 21:24 Crestor - PO Not Given HS NINA Zolpidem Tartrate 5 mg 07/20/19 22:00 07/27/19 21:24 Ambien - PO 5 mg HS PRN Administration INSOMNIA ASSESSMENT/PLAN: Connie Red is a 79 year old female with a past medical history of HTN, chronic back pain, lumbar stenosis, osteoporosis, frequent falls (last one in 2017 requiring vertebroplasty sx), on chronic opiates and ambien admitted after witnessed mechanical fall resulting in L pubic ramus fracture. Pubic Rami fracture; s/p mechanical fall. Pt has worsening pain upon ROM. Imaging studies showed: * Pelvic XR- Acute minimally displaced fractures left inferior and superior pubic rami. Left femoral neck evaluation somewhat limited by artifact from overlying clothing/drapery. No dislocation. * CT pelvis showing a comminuted fracture through the medical portion of the L pubic ramus near the symphysis pubis and hyperdense soft tissue mass superior and to the right of the fracture suspicious for a hematoma * CT head and c-spine reviewed: no acute pathology - OOB to chair, fall precautions - Cont home med: Oxy 5 Q6H PRN for pain - Orthopedics consulted, Dr. Calvo for evaluation, recommending PT, weight bearing as tolerated, pain management, SNF placement, DVT prophylaxis (aspirin) for 6 weeks - Repeat CTAP (07/26) showed increased hematoma size (7.5x4.6x2.2cm) with no acute hemorrhage - started on aspirin 81mg as per ortho for DVT prophylaxis, held pending plateau of H/H - continue PT - spoken with orthopedic PA Vipin Montejo, stated that she is clear from ortho perspective and that hematoma may take up to 8 weeks to heal and patient should have repeat pelvic x-ray in 4 weeks Urinary Retention/Sepsis secondary to UTI - CTAP showing mild bilateral hydronephrosis - patient stated that she has difficulty excreting urine, failed voiding trial, replaced ramirez cath - UA showing + nitrities, 1+ LE, 63 WBC, 2468 bacteria - Ucs showing Klebsiella with multiple sensitivities - Blood cxs negative - ID consulted due to continued fevers on antibiotics - start Augmentin 875mg bid for 7 days as per ID, today day 2 - continue to monitor for fevers, has been afebrile for 48 hours - will need to follow up outpatient with urology outpatient Leukocytosis - Resolved. Likely secondary to fall and fracture - CXR with no acute pathology - treating for UTI likely due to retention - CTA with no PE HTN/HLD - Cont home meds: Toprol XL 25, Crestor 5 HS, Cholestyramine 4, hold Lisinopril 10 due to infection and low BP Chronic Back Pain - Cont home med: Oxycodone 5 Q6H PRN, Flexeril 10 TID Anemia - hematoma increased with no acute hemorrhage as per CT 07/26/19, CBC stable - s/p 1 unit, Hgb 9.2, continue to monitor Prophylaxis - DVT: SCDs. Per ortho, started ASA on 07/23 x6 weeks, held pending plateau of H/ H - encourage incentive spirometry FEN - no standing fluids, low threshold to resume if patient become hypotensive - continue to monitor electrolytes and replete as necessary. will monitor Mg, repleted - Chol/Na restricted diet Dispo - continue to monitor on Med-surg - will go to [facility] pending resolution of fevers and voiding trial - if cannot go to [facility], will explore other options for nursing facilities that can accomodate ramirez cath Visit type - Emergency Visit Emergency Visit: Yes ED Registration Date: 07/20/19 Care time: The patient presented to the Emergency Department on the above date and was hospitalized for further evaluation of their emergent condition. - New Patient This patient is new to me today: No - Critical Care Critical Care patient: No
--- NOTE | 2019-07-28 16:07 | PN ---
Teaching Attending Note Name of Resident: Den Viramontes ATTENDING PHYSICIAN STATEMENT I saw and evaluated the patient. I reviewed the resident's note and discussed the case with the resident. I agree with the resident's findings and plan as documented. SUBJECTIVE: Complains of ongoing pelvic pain on weight bearing/ambulating. Unable to void overnight, requiring straight cath. OBJECTIVE: Afebrile overnight. Hemodynamically Stable. Last Vital Signs Temp Pulse Resp BP Pulse Ox 98.3 F 60 20 141/61 98 07/28/19 09:00 07/28/19 11:25 07/28/19 09:00 07/28/19 11:25 07/25/19 21:00 Neuro - AAO x 3. No focal neuro deficits. HEART: S1, S2, RRR LUNGS: Clear to auscultation ABDOMEN: Soft, non-tender, non-distended, normal BS EXTREMITIES: No edema, no calf tenderness. Laboratory Results - last 24 hr 07/28/19 08:05 WBC 8.4 RBC 2.87 L Hgb 9.2 L Hct 27.5 L MCV 95.8 MCH 32.2 MCHC 33.6 RDW 15.4 Plt Count 387 MPV 6.7 L Current Medications Generic Name Dose Route Start Last Admin Trade Name Freq PRN Reason Stop Dose Admin Acetaminophen 650 mg 07/24/19 01:56 07/28/19 06:50 Tylenol - PO 650 mg Q6H PRN Administration FEVER Amoxicillin/Clavulanate Potassium 1 tab 07/27/19 17:30 07/28/19 08:14 Augmentin - 875mg Tablet PO 1 tab BID@0800,1730 NINA Administration Aspirin 81 mg 07/23/19 10:45 07/26/19 10:57 Asa - PO 81 mg DAILY NINA Administration Cholestyramine Resin 4 gm 07/21/19 10:00 07/28/19 10:17 Questran Light Packet - PO Not Given DAILY NINA Cyclobenzaprine HCl 10 mg 07/20/19 03:57 07/27/19 21:24 Flexeril - PO 10 mg TID PRN Administration MUSCLE SPASMS Docusate Sodium 100 mg 07/21/19 18:28 07/22/19 10:31 Colace - PO 100 mg BID PRN Administration CONSTIPATION Magnesium Oxide 800 mg 07/26/19 10:00 07/28/19 10:17 Mag-Ox - PO 07/31/19 09:59 800 mg DAILY NINA Administration Meclizine HCl 12.5 mg 07/20/19 14:00 07/28/19 13:21 Antivert - PO Not Given TID [facility] Metoprolol Succinate 25 mg 07/20/19 10:00 07/28/19 10:17 Toprol Xl - PO 25 mg DAILY NINA Administration Miscellaneous 1 each 07/19/19 22:00 07/27/19 21:25 Lidoderm Patch Removal MC Not Given DAILY@2200 [facility] Ondansetron HCl 4 mg 07/28/19 07:51 07/28/19 08:32 Zofran - PO 4 mg BID PRN Administration NAUSEA Oxycodone HCl 5 mg 07/20/19 10:47 07/28/19 12:48 Roxicodone - PO 5 mg Q6H PRN Administration PAIN 1-5 Polyethylene Glycol 17 gm 07/21/19 18:28 07/22/19 10:33 Miralax (For Daily Use) - PO 17 gm DAILY PRN Administration CONSTIPATION Rosuvastatin Calcium 5 mg 07/20/19 22:00 07/27/19 21:24 Crestor - PO Not Given HS [facility] Zolpidem Tartrate 5 mg 07/20/19 22:00 07/27/19 21:24 Ambien - PO 5 mg HS PRN Administration INSOMNIA Home Medications Medication Instructions Recorded Aspirin 81 mg PO DAILY #42 tab.chew 07/20/19 Cholestyramine/Aspartame 4 gm PO DAILY 07/20/19 [Cholestyramine Light Packet] Cyclobenzaprine HCl 10 mg PO TID 07/20/19 Hydrochlorothiazide 50 mg PO DAILY 07/20/19 Hydrocodone/Acetaminophen [[place] 1 each PO QID PRN 07/20/19 5-325 Tablet] Lisinopril [Prinivil] 10 mg PO DAILY 07/20/19 Meclizine HCl 12.5 mg PO TID 07/20/19 Metoprolol Succinate [Toprol Xl] 25 mg PO DAILY 07/20/19 Raloxifene HCl 60 mg PO DAILY 07/20/19 Rosuvastatin Calcium [Crestor] 5 mg PO DAILY 07/20/19 Zolpidem Tartrate 10 mg PO HS 07/20/19 ASSESSMENT AND PLAN: 79 year old female with chronic back pain, lumbar stenosis, osteoporosis, frequent falls, on chronic opiates and ambien presents after mechanical fall, missing a step and landing on her hip. No head injury/LOC. No preceding CP/ palpitations/lightheadedness. 1. Left superior and inferior pubic rami fractures s/p mechanical fall Seen by Ortho - not for surgical intervention PT Pain control with Oxycodone PRN DVT Px with Aspirin held due to worsening hematoma 2. Sepsis (fever, tachycardia) secondary to UTI - resolved CTA - no PE, RLL atelectasis Urine Cx positive for Klebsiella, treated with Ceftriaxone Fevers resolved Seen by ID - Abx changed to oral Augmentin. 4. HTN - Continue Lisinopril, Toprol XL 5. HLD - Continue Crestor 6. Chronic back pain - Continue Flexeril as needed, Oxycodone as needed 7. Anemia, likely secondary to acute blood loss (pelvic hematoma) and dilution due to IV hydration - H/H stable s/p 1 unit PRBCs. 8. TOV failed - Urinary retention overnight - will reinsert ramirez. Urology follow up as out-patient. [facility] unable to accept patient with Ramirez. Legal Researcher asked to present patient with other Rehab/SNF options.
[2019-07-28] MEDS ORDERED: PT OWN MED DRAWER 7, Y5N ONE ×2 (17:41→18:41)
[2019-07-28] MEDS: LIDOCAINE PATCH REMOVAL MC SCH (22:41)
[2019-07-28] MEDS: ZOLPIDEM TARTRATE 5 MG TABLET PO PRN (22:41)
[2019-07-28] MEDS: CYCLOBENZAPRINE HCL 10 MG TABLET (FP) PO PRN (22:41)
[2019-07-28] MEDS: ROSUVASTATIN CA 5 MG TABLET (FP) PO SCH (22:43)
[2019-07-29] MEDS: MECLIZINE HCL 12.5 MG TABLET PO SCH ×3 (06:12→22:03)
[2019-07-29] MEDS: oxyCODONE HCL 5 MG TABLET PO PRN ×4 (06:12→22:07)
[2019-07-29] MEDS: ACETAMINOPHEN 325 MG TABLET (FP) PO PRN ×3 (06:13→17:52)
[2019-07-29] MEDS: AMOX TR/POT CLAV 875MG/125MG TABLETS (FP) PO SCH ×2 (09:58→17:54)
[2019-07-29] MEDS: metoPROLOL SUCCINATE 25 MG TAB.SR.24H (FP) PO SCH (09:59)
[2019-07-29] MEDS: MAGNESIUM OXIDE 400 MG TABLET (FP) PO SCH (10:00)
[2019-07-29] MEDS: ASPIRIN 81 MG CHEWABLE TABLETS PO SCH (10:00)
[2019-07-29] MEDS: DOCUSATE SODIUM 100 MG CAPSULE (FP) PO PRN (10:00)
[2019-07-29] MEDS: CHOLESTYRAMINE/ASPARTAME 4 GM PACKET PO SCH (10:01)
[2019-07-29 13:55] LABS: HEMATOCRIT 31.5 % (32.4-45.2); HEMOGLOBIN 10.3 GM/dL (10.7-15.3); MCH 31.8 pg (25.7-33.7); MCHC 32.6 g/dl (32.0-36.0); MEAN CELL VOLUME 97.5 fl (80-96); MEAN PLT VOLUME 6.8 fl (7.5-11.1); PLATELET COUNT 499 K/MM3 (134-434); RBC 3.23 M/mm3 (3.60-5.2); RDW 15.5 % (11.6-15.6); WHITE BLOOD COUNT 11.6 K/mm3 (4.0-10.0)
--- NOTE | 2019-07-29 19:03 | PN ---
Progress Note (short form) - Note Progress Note: SUBJECTIVE: Complains of ongoing pelvic pain on weight bearing/ambulating, but general improvement. OBJECTIVE: Afebrile overnight. Hemodynamically Stable. Last Vital Signs Temp Pulse Resp BP Pulse Ox 98.2 F 76 18 138/84 98 07/29/19 17:00 07/29/19 17:00 07/29/19 17:00 07/29/19 17:00 07/29/19 09:00 Neuro - AAO x 3. No focal neuro deficits. HEART: S1, S2, RRR LUNGS: Clear to auscultation ABDOMEN: Soft, non-tender, non-distended, normal BS EXTREMITIES: No edema, no calf tenderness. Laboratory Results - last 24 hr 07/25/19 07/29/19 11:21 13:16 WBC 11.6 H RBC 3.23 L Hgb 10.3 L Hct 31.5 L MCV 97.5 H MCH 31.8 MCHC 32.6 RDW 15.5 Plt Count 499 H D MPV 6.8 L Blood Type A POSITIVE Antibody Screen Negative Crossmatch See Detail Current Medications Generic Name Dose Route Start Last Admin Trade Name Freq PRN Reason Stop Dose Admin Acetaminophen 650 mg 07/24/19 01:56 07/29/19 17:52 Tylenol - PO 650 mg Q6H PRN Administration FEVER Amoxicillin/Clavulanate Potassium 1 tab 07/27/19 17:30 07/29/19 17:54 Augmentin - 875mg Tablet PO Not Given BID@0800,1730 NINA Aspirin 81 mg 07/23/19 10:45 07/29/19 10:00 Asa - PO 81 mg DAILY NINA Administration Cholestyramine Resin 4 gm 07/21/19 10:00 07/29/19 10:01 Questran Light Packet - PO Not Given DAILY NINA Cyclobenzaprine HCl 10 mg 07/20/19 03:57 07/28/19 22:41 Flexeril - PO 10 mg TID PRN Administration MUSCLE SPASMS Docusate Sodium 100 mg 07/21/19 18:28 07/29/19 10:00 Colace - PO 100 mg BID PRN Administration CONSTIPATION Magnesium Oxide 800 mg 07/26/19 10:00 07/29/19 10:00 Mag-Ox - PO 07/31/19 09:59 800 mg DAILY NINA Administration Meclizine HCl 12.5 mg 07/20/19 14:00 07/29/19 15:22 Antivert - PO Not Given TID [facility] Metoprolol Succinate 25 mg 07/20/19 10:00 07/29/19 09:59 Toprol Xl - PO 25 mg DAILY NINA Administration Miscellaneous 1 each 07/19/19 22:00 07/28/19 22:41 Lidoderm Patch Removal MC Not Given DAILY@2200 [facility] Ondansetron HCl 4 mg 07/28/19 07:51 07/28/19 18:39 Zofran - PO 4 mg BID PRN Administration NAUSEA Oxycodone HCl 5 mg 07/20/19 10:47 07/29/19 17:51 Roxicodone - PO 5 mg Q6H PRN Administration PAIN 1-5 Polyethylene Glycol 17 gm 07/21/19 18:28 07/22/19 10:33 Miralax (For Daily Use) - PO 17 gm DAILY PRN Administration CONSTIPATION Rosuvastatin Calcium 5 mg 07/20/19 22:00 07/28/19 22:43 Crestor - PO Not Given HS [facility] Zolpidem Tartrate 5 mg 07/20/19 22:00 07/28/19 22:41 Ambien - PO 5 mg HS PRN Administration INSOMNIA Current Medications Generic Name Dose Route Start Last Admin Trade Name Freq PRN Reason Stop Dose Admin Acetaminophen 650 mg 07/24/19 01:56 07/29/19 17:52 Tylenol - PO 650 mg Q6H PRN Administration FEVER Amoxicillin/Clavulanate Potassium 1 tab 07/27/19 17:30 07/29/19 17:54 Augmentin - 875mg Tablet PO Not Given BID@0800,1730 [facility] Aspirin 81 mg 07/23/19 10:45 07/29/19 10:00 Asa - PO [address] [facility] Administration Cholestyramine Resin 4 gm 07/21/19 10:00 07/29/19 10:01 Questran Light Packet - PO Not Given DAILY [facility] Cyclobenzaprine HCl 10 mg 07/20/19 03:57 07/28/19 22:41 Flexeril - PO 10 mg TID PRN Administration MUSCLE SPASMS Docusate Sodium 100 mg 07/21/19 18:28 07/29/19 10:00 Colace - PO 100 mg BID PRN Administration CONSTIPATION Magnesium Oxide 800 mg 07/26/19 10:00 07/29/19 10:00 Mag-Ox - PO 07/31/19 09:59 800 mg DAILY NINA Administration Meclizine HCl 12.5 mg 07/20/19 14:00 07/29/19 15:22 Antivert - PO Not Given TID NINA Metoprolol Succinate 25 mg 07/20/19 10:00 07/29/19 09:59 Toprol Xl - PO 25 mg DAILY NINA Administration Miscellaneous 1 each 07/19/19 22:00 07/28/19 22:41 Lidoderm Patch Removal MC Not Given DAILY@2200 [facility] Ondansetron HCl 4 mg 07/28/19 07:51 07/28/19 18:39 Zofran - PO 4 mg BID PRN Administration NAUSEA Oxycodone HCl 5 mg 07/20/19 10:47 07/29/19 17:51 Roxicodone - PO 5 mg Q6H PRN Administration PAIN 1-5 Polyethylene Glycol 17 gm 07/21/19 18:28 07/22/19 10:33 Miralax (For Daily Use) - PO 17 gm DAILY PRN Administration CONSTIPATION Rosuvastatin Calcium 5 mg 07/20/19 22:00 07/28/19 22:43 Crestor - PO Not Given HS [facility] Zolpidem Tartrate 5 mg 07/20/19 22:00 07/28/19 22:41 Ambien - PO 5 mg HS PRN Administration INSOMNIA Home Medications Medication Instructions Recorded Aspirin 81 mg PO DAILY #42 tab.chew 07/20/19 Cholestyramine/Aspartame 4 gm PO DAILY 07/20/19 [Cholestyramine Light Packet] Cyclobenzaprine HCl 10 mg PO TID 07/20/19 Hydrochlorothiazide 50 mg PO DAILY 07/20/19 Hydrocodone/Acetaminophen [[place] 1 each PO QID PRN 07/20/19 5-325 Tablet] Lisinopril [Prinivil] 10 mg PO DAILY 07/20/19 Meclizine HCl 12.5 mg PO TID 07/20/19 Metoprolol Succinate [Toprol Xl] 25 mg PO DAILY 07/20/19 Raloxifene HCl 60 mg PO DAILY 07/20/19 Rosuvastatin Calcium [Crestor] 5 mg PO DAILY 07/20/19 Zolpidem Tartrate 10 mg PO HS 07/20/19 ASSESSMENT AND PLAN: 79 year old female with chronic back pain, lumbar stenosis, osteoporosis, frequent falls, on chronic opiates and ambien presents after mechanical fall, missing a step and landing on her hip. No head injury/LOC. No preceding CP/ palpitations/lightheadedness. 1. Left superior and inferior pubic rami fractures s/p mechanical fall Seen by Ortho - not for surgical intervention PT Pain control with Oxycodone PRN DVT Px with Aspirin held due to worsening hematoma 2. Sepsis (fever, tachycardia) secondary to UTI - resolved CTA - no PE, RLL atelectasis Urine Cx positive for Klebsiella, treated with Ceftriaxone Fevers resolved Seen by ID - Abx changed to oral Augmentin. 4. HTN - Continue Lisinopril, Toprol XL 5. HLD - Continue Crestor 6. Chronic back pain - Continue Flexeril as needed, Oxycodone as needed 7. Anemia, likely secondary to acute blood loss (pelvic hematoma) and dilution due to IV hydration - H/H stable s/p 1 unit PRBCs. 8. TOV failed - Urinary retention overnight 07/28 - Styles re-inserted. Urology follow up as out-patient. [facility] unable to accept patient with Sty[facility]. [employer] Fitter Helper discussed other options with patient and presented her to other SNF/Rehab facilities 07/28 - awaiting response back. Visit type - Emergency Visit Emergency Visit: Yes ED Registration Date: 07/20/19 Care time: The patient presented to the Emergency Department on the above date and was hospitalized for further evaluation of their emergent condition. - New Patient This patient is new to me today: No - Critical Care Critical Care patient: No - Discharge Referral Referred to [facility] Med [facility] No
[2019-07-29] MEDS: ROSUVASTATIN CA 5 MG TABLET (FP) PO SCH (22:03)
[2019-07-29] MEDS: LIDOCAINE PATCH REMOVAL MC SCH (22:04)
[2019-07-29] MEDS: ZOLPIDEM TARTRATE 5 MG TABLET PO PRN (22:07)
[2019-07-30] MEDS: oxyCODONE HCL 5 MG TABLET PO PRN ×4 (05:22→21:30)
[2019-07-30] MEDS: ACETAMINOPHEN 325 MG TABLET (FP) PO PRN ×4 (05:23→23:10)
[2019-07-30] MEDS: MECLIZINE HCL 12.5 MG TABLET PO SCH ×3 (06:22→21:30)
[2019-07-30] MEDS: AMOX TR/POT CLAV 875MG/125MG TABLETS (FP) PO SCH ×2 (08:29→17:30)
[2019-07-30] MEDS ORDERED: SODIUM CHLORIDE 1,000 ML IV SCH (09:15)
[2019-07-30] MEDS ORDERED: LACTATED RINGERS SOLUTION 1,000 ML/1,000 ML INFUS.BAG IV SCH (09:15)
[2019-07-30 09:57] LABS: BASO % 0.3 % (0-2.0); EOS % 2.5 % (0-4.5); HEMATOCRIT 31.1 % (32.4-45.2); HEMOGLOBIN 10.3 GM/dL (10.7-15.3); LYMPH % 11.9 % (8-40); MCH 32.1 pg (25.7-33.7); MEAN CELL VOLUME 97.4 fl (80-96); MEAN PLT VOLUME 6.9 fl (7.5-11.1); MONO % 5.1 % (3.8-10.2); NEUT % 80.2 % (42.8-82.8); PLATELET COUNT 496 K/MM3 (134-434); RDW 15.4 % (11.6-15.6); WHITE BLOOD COUNT 12.8 K/mm3 (4.0-10.0)
[2019-07-30 10:20] LABS: BLOOD UREA NITROGEN 15.6 mg/dL (7-18); CALCIUM 9.1 mg/dL (8.5-10.1); CREATININE 0.8 mg/dL (0.55-1.3); POTASSIUM 3.6 mmol/L (3.5-5.1)
[2019-07-30] MEDS: ASPIRIN 81 MG CHEWABLE TABLETS PO SCH (11:44)
[2019-07-30] MEDS: MAGNESIUM OXIDE 400 MG TABLET (FP) PO SCH (11:44)
[2019-07-30] MEDS: metoPROLOL SUCCINATE 25 MG TAB.SR.24H (FP) PO SCH (11:44)
[2019-07-30] MEDS: SODIUM CHLORIDE 0.45% 1,000 ML IV SCH (11:45)
[2019-07-30] MEDS: CHOLESTYRAMINE/ASPARTAME 4 GM PACKET PO SCH (11:58)
--- NOTE | 2019-07-30 17:47 | PN ---
Physical Exam: SUBJECTIVE: Patient seen and examined at the bedside. Noted that she was having loose bowel movements over the weekend and overnight. Denies pain or blood in stool. Endorses good appetite. Stated that she had some pain in her LLE at the ankle and subjective swelling. Denies cp, sob, abd pain, n/v, fever, chills, numbness, tingling. OBJECTIVE: Vital Signs Period Temp Pulse Resp BP Sys/Martinez Pulse Ox Last 24 Hr 98.0 F-98.9 F 73-98 20-20 110-129/59-72 98-98 GENERAL: Pleasant, well-appearing elderly female. NAD. Cooperative. AAOx3. HEENT: Atraumatic, normocephalic. NECK: Trachea midline, full range of motion, supple. LUNGS: Breath sounds equal, clear to auscultation bilaterally, no wheezes, no crackles, no accessory muscle use. HEART: Regular rate and rhythm, S1, S2 without murmur, rub. ABDOMEN: Soft, non-tender nondistended, normoactive bowel sounds, no guarding, no rebound, no masses. EXTREMITIES: 2+ pulses, warm, well-perfused, no edema. Improved range of motion. Slight pain to touch on the L lateral malleolus. NEUROLOGICAL: Cranial nerves II through XII grossly intact. Decreased strength on the LLE in flexion/extension, rotation, secondary to pain. No sensory deficits. PSYCH: Normal mood, normal affect. SKIN: Warm, dry, normal turgor, no rashes or lesions noted. Laboratory Results - last 24 hr 07/30/19 07/30/19 09:15 09:15 WBC 12.8 H RBC 3.20 L Hgb 10.3 L Hct 31.1 L MCV 97.4 H MCH 32.1 MCHC 33.0 RDW 15.4 Plt Count 496 H MPV 6.9 L Absolute Neuts (auto) 10.2 H Neutrophils % 80.2 Lymphocytes % 11.9 D Monocytes % 5.1 Eosinophils % 2.5 D Basophils % 0.3 Nucleated RBC % 0 Sodium 142 Potassium 3.6 Chloride 105 Carbon Dioxide 31 Anion Gap 6 L BUN 15.6 Creatinine 0.8 Est GFR (CKD-EPI)AfAm 82.42 Est GFR (CKD-EPI)NonAf 71.11 Random Glucose 119 H Calcium 9.1 Active Medications Generic Name Dose Route Start Last Admin Trade Name Freq PRN Reason Stop Dose Admin Acetaminophen 650 mg 07/24/19 01:56 07/30/19 17:37 Tylenol - PO 650 mg Q6H PRN Administration FEVER Amoxicillin/Clavulanate Potassium 1 tab 07/27/19 17:30 07/30/19 17:30 Augmentin - 875mg Tablet PO Not Given BID@0800,1730 NINA Aspirin 81 mg 07/23/19 10:45 07/30/19 11:44 Asa - PO 81 mg DAILY NINA Administration Cholestyramine Resin 4 gm 07/21/19 10:00 07/30/19 11:58 Questran Light Packet - PO Not Given DAILY [facility] Cyclobenzaprine HCl 10 mg 07/20/19 03:57 07/28/19 22:41 Flexeril - PO 10 mg TID PRN Administration MUSCLE SPASMS Docusate Sodium 100 mg 07/21/19 18:28 07/29/19 10:00 Colace - PO 100 mg BID PRN Administration CONSTIPATION Sodium Chloride 1,000 mls @ 50 mls/hr 07/30/19 09:30 07/30/19 11:45 1/2 Normal Saline IV 50 mls/hr ASDIR NINA Administration Magnesium Oxide 800 mg 07/26/19 10:00 07/30/19 11:44 Mag-Ox - PO 07/31/19 09:59 800 mg DAILY NINA Administration Meclizine HCl 12.5 mg 07/20/19 14:00 07/30/19 14:57 Antivert - PO Not Given TID [facility] Metoprolol Succinate 25 mg 07/20/19 10:00 07/30/19 11:44 Toprol Xl - PO 25 mg DAILY [facility] Administration Miscellaneous 1 each 07/19/19 22:00 07/29/19 22:04 Lidoderm Patch Removal MC Not Given DAILY@2200 [facility] Ondansetron HCl 4 mg 07/28/19 07:51 07/28/19 18:39 Zofran - PO 4 mg BID PRN Administration NAUSEA Oxycodone HCl 5 mg 07/29/19 19:12 07/30/19 17:35 Roxicodone - PO 5 mg Q4H PRN Administration PAIN 1-5 Polyethylene Glycol 17 gm 07/21/19 18:28 07/22/19 10:33 Miralax (For Daily Use) - PO 17 gm DAILY PRN Administration CONSTIPATION Rosuvastatin Calcium 5 mg 07/20/19 22:00 07/29/19 22:03 Crestor - PO Not Given HS NINA Zolpidem Tartrate 5 mg 07/20/19 22:00 07/29/19 22:07 Ambien - PO 5 mg HS PRN Administration INSOMNIA ASSESSMENT/PLAN: Connie Red is a 79 year old female with a past medical history of HTN, chronic back pain, lumbar stenosis, osteoporosis, frequent falls (last one in 2017 requiring vertebroplasty sx), on chronic opiates and ambien admitted after witnessed mechanical fall resulting in L pubic ramus fracture. Pubic Rami fracture; s/p mechanical fall. Pt has worsening pain upon ROM. Imaging studies showed: * Pelvic XR- Acute minimally displaced fractures left inferior and superior pubic rami. Left femoral neck evaluation somewhat limited by artifact from overlying clothing/drapery. No dislocation. * CT pelvis showing a comminuted fracture through the medical portion of the L pubic ramus near the symphysis pubis and hyperdense soft tissue mass superior and to the right of the fracture suspicious for a hematoma * CT head and c-spine reviewed: no acute pathology - OOB to chair, fall precautions - Cont home med: Oxy 5 Q6H PRN for pain - Orthopedics consulted, Dr. Calvo for evaluation, recommending PT, weight bearing as tolerated, pain management, SNF placement, DVT prophylaxis (aspirin) for 6 weeks - Repeat CTAP (07/26) showed increased hematoma size (7.5x4.6x2.2cm) with no acute hemorrhage - started on aspirin 81mg as per ortho for DVT prophylaxis - continue PT - spoken with orthopedic PA Vipin Montejo, stated that she is clear from ortho perspective and that hematoma may take up to 8 weeks to heal and patient should have repeat pelvic x-ray in 4 weeks Urinary Retention/Sepsis secondary to UTI - CTAP showing mild bilateral hydronephrosis - patient stated that she has difficulty excreting urine, failed voiding trial, replaced ramirez cath - UA showing + nitrities, 1+ LE, 63 WBC, 2468 bacteria - Ucs showing Klebsiella with multiple sensitivities - Blood cxs negative - ID consulted due to continued fevers on antibiotics - start Augmentin 875mg bid for 7 days as per ID, patient has been refusing antibiotic due to diarrhea, encouraged to take and counseled on antibiotic use - will need to follow up outpatient with urology outpatient Leukocytosis - increasing - CXR with no acute pathology - treating for UTI likely due to retention - CTA with no PE - c diff sent for diarrhea Diarrhea - KUB negative for acute pathology - c diff studies sent - pt with hx of microscopic colitis - if negative for c diff can be sent on budesonide which patient has had in past Leg Swelling - duplex negative for DVT - likely in setting of prolonged immobilization HTN/HLD - Cont home meds: Toprol XL 25, Crestor 5 HS, Cholestyramine 4, hold Lisinopril 10 due to infection and low BP Chronic Back Pain - Cont home med: Oxycodone 5 Q6H PRN, Flexeril 10 TID Anemia - hematoma increased with no acute hemorrhage as per CT 07/26/19, CBC stable - s/p 1 unit, Hgb 9.2, continue to monitor Prophylaxis - DVT: SCDs. Per ortho, started ASA on 07/23 x6 weeks - encourage incentive spirometry FEN - 1/2 NS at 50cc/hr - continue to monitor electrolytes and replete as necessary - Chol/Na restricted diet Dispo - continue to monitor on Med-surg - will go to [facility] Visit type - Emergency Visit Emergency Visit: Yes ED Registration Date: 07/20/19 Care time: The patient presented to the Emergency Department on the above date and was hospitalized for further evaluation of their emergent condition. - New Patient This patient is new to me today: No - Critical Care Critical Care patient: No
--- NOTE | 2019-07-30 18:12 | PN ---
Teaching Attending Note Name of Resident: Den Viramontes ATTENDING PHYSICIAN STATEMENT I saw and evaluated the patient. I reviewed the resident's note and discussed the case with the resident. I agree with the resident's findings and plan as documented with exceptions below. SUBJECTIVE: Patient seen and examined. Left groin pain controlled. reports diarrhea but no abdominal pain. OBJECTIVE: Vital Signs Period Temp Pulse Resp BP Sys/Martinez Pulse Ox Last 24 Hr 98.0 F-98.9 F 73-98 20-20 110-141/59-72 98-98 Intake & Output 07/27/19 07/28/19 07/29/19 07/30/19 23:59 23:59 23:59 23:59 Intake Total 0 200 605 Output Total 800 1120 600 900 Balance -800 -920 5 -900 Weight 111 lb General: sitting in stretcher, no acute distress Chest: CTAb, no rales or wheezing Abdomen;Soft, NT, ND, pos bowel sounds Extremities: left hip ecchymosis, pos pulses Home Medications Medication Instructions Recorded Aspirin 81 mg PO DAILY #42 tab.chew 07/20/19 Cholestyramine/Aspartame 4 gm PO DAILY 07/20/19 [Cholestyramine Light Packet] Cyclobenzaprine HCl 10 mg PO TID 07/20/19 Hydrochlorothiazide 50 mg PO DAILY 07/20/19 Hydrocodone/Acetaminophen [Vonore 1 each PO QID PRN 07/20/19 5-325 Tablet] Lisinopril [Prinivil] 10 mg PO DAILY 07/20/19 Meclizine HCl 12.5 mg PO TID 07/20/19 Metoprolol Succinate [Toprol Xl] 25 mg PO DAILY 07/20/19 Raloxifene HCl 60 mg PO DAILY 07/20/19 Rosuvastatin Calcium [Crestor] 5 mg PO DAILY 07/20/19 Zolpidem Tartrate 10 mg PO HS 07/20/19 Budesonide [Budesonide EC] 3 mg PO DAILY #14 capdr...er 07/30/19 Active Medications Acetaminophen (Tylenol -) 650 mg PO Q6H PRN PRN Reason: FEVER Last Admin: 07/30/19 17:37 Dose: 650 mg Amoxicillin/Clavulanate Potassium (Augmentin - 875mg Tablet) 1 tab PO BID@0800, 1730 NINA Last Admin: 07/30/19 17:30 Dose: Not Given Aspirin (Asa -) 81 mg PO DAILY COUNT INCLUDES [facility] Last Admin: 07/30/19 11:44 Dose: 81 mg Cholestyramine Resin (Questran Light Packet -) 4 gm PO DAILY COUNT INCLUDES [facility] Last Admin: 07/30/19 11:58 Dose: Not Given Cyclobenzaprine HCl (Flexeril -) 10 mg PO TID PRN PRN Reason: MUSCLE SPASMS Last Admin: 07/28/19 22:41 Dose: 10 mg Docusate Sodium (Colace -) 100 mg PO BID PRN PRN Reason: CONSTIPATION Last Admin: 07/29/19 10:00 Dose: 100 mg Sodium Chloride (1/2 Normal Saline) 1,000 mls @ 50 mls/hr IV ASDIR COUNT INCLUDES THE [facility] Last Admin: 07/30/19 11:45 Dose: 50 mls/hr Magnesium Oxide (Mag-Ox -) 800 mg PO DAILY COUNT INCLUDES [facility] Stop: 07/31/19 09:59 Last Admin: 07/30/19 11:44 Dose: 800 mg Meclizine HCl (Antivert -) 12.5 mg PO TID COUNT INCLUDES [facility] Last Admin: 07/30/19 14:57 Dose: Not Given Metoprolol Succinate (Toprol Xl -) 25 mg PO DAILY COUNT INCLUDES [facility] Last Admin: 07/30/19 11:44 Dose: 25 mg Miscellaneous (Lidoderm Patch Removal) 1 each MC DAILY@2200 COUNT [facility]CLUDES [facility] Last Admin: 07/29/19 22:04 Dose: Not Given Ondansetron HCl (Zofran -) 4 mg PO BID PRN PRN Reason: NAUSEA Last Admin: 07/28/19 18:39 Dose: 4 mg Oxycodone HCl (Roxicodone -) 5 mg PO Q4H PRN PRN Reason: PAIN 1-5 Last Admin: 07/30/19 17:35 Dose: 5 mg Polyethylene Glycol (Miralax (For Daily Use) -) 17 gm PO DAILY PRN PRN Reason: CONSTIPATION Last Admin: 07/22/19 10:33 Dose: 17 gm Rosuvastatin Calcium (Crestor -) 5 mg PO HS COUNT INCLUDES [facility] Last Admin: 07/29/19 22:03 Dose: Not Given Zolpidem Tartrate (Ambien -) 5 mg PO HS PRN PRN Reason: INSOMNIA Last Admin: 07/29/19 22:07 Dose: 5 mg Laboratory Results - last 24 hr 07/30/19 07/30/19 09:15 09:15 WBC 12.8 H RBC 3.20 L Hgb 10.3 L Hct 31.1 L MCV 97.4 H MCH 32.1 MCHC 33.0 RDW 15.4 Plt Count 496 H MPV 6.9 L Absolute Neuts (auto) 10.2 H Neutrophils % 80.2 Lymphocytes % 11.9 D Monocytes % 5.1 Eosinophils % 2.5 D Basophils % 0.3 Nucleated RBC % 0 Sodium 142 Potassium 3.6 Chloride 105 Carbon Dioxide 31 Anion Gap 6 L BUN 15.6 Creatinine 0.8 Est GFR (CKD-EPI)AfAm 82.42 Est GFR (CKD-EPI)NonAf 71.11 Random Glucose 119 H Calcium 9.1 Microbiology 07/24/19 07:20 Blood - Peripheral Venous Blood Culture - Final NO GROWTH AFTER 5 DAYS INCUBATION 07/24/19 02:20 Blood - Peripheral Venous Blood Culture - Final NO GROWTH AFTER 5 DAYS INCUBATION 07/24/19 04:07 Urine - Urine Styles Urine Culture - Final Klebsiella Pneumoniae ASSESSMENT AND PLAN: 79 year old female with chronic back pain, lumbar stenosis, osteoporosis, frequent falls, on chronic opiates and ambien presents after mechanical fall, missing a step and landing on her hip. No head injury/LOC. No preceding CP/ palpitations/lightheadedness. -Left superior/inferior pubic rami fracture -Mechanical fall -Acute on chronic anemia, suspect from blood loss from pelvic hematoma, compounded by hemodilution (IV fluids). -Sepsis, RLL PNA(?Hospital acquired vs aspiration), vs complicated UTI in the setting of urinary retention -Urinary retention, suspect from poor ambulation/narcotics -Hypokalemia -Diarrhea -reported h/o Microscopic colitis, on budesonide [place] -HTN -HLD Plan: Fevers, resolved, ID input noted, On augmentin h/h stable. ASA resumed LE duplex neg patient reports diarrhea, none charted Stool C difficile if recurrence noted. patient reports h/o microscopic colitis on Budesonide [place]. Would avoid for now, till C difficile ruled out if clinically concerning diarrhea noted. OOB, PT, pain control Continue Crestor/lisinopril/Toprol XL. Flexeril/oxycodone prn for pain. Replete K prn Failed voiding trial, will need re-attempt once better ambulation in the rehab. Outpatient Urology follow up [facility] diarrhea or new symptoms Discussed with patient and nursing.
[2019-07-30] MEDS: ROSUVASTATIN CA 5 MG TABLET (FP) PO SCH (21:32)
[2019-07-30] MEDS: ZOLPIDEM TARTRATE 5 MG TABLET PO PRN (21:32)
[2019-07-30] MEDS: LIDOCAINE PATCH REMOVAL MC SCH (21:32)
[2019-07-31] MEDS: oxyCODONE HCL 5 MG TABLET PO PRN ×3 (04:08→14:44)
[2019-07-31] MEDS: ACETAMINOPHEN 325 MG TABLET (FP) PO PRN (04:09)
[2019-07-31] MEDS: MECLIZINE HCL 12.5 MG TABLET PO SCH ×2 (05:57→14:44)
[2019-07-31 08:10] VITALS: BP 130/66; PULSE 87; TEMP 99.7
[2019-07-31] MEDS: AMOX TR/POT CLAV 875MG/125MG TABLETS (FP) PO SCH (08:47)
[2019-07-31] MEDS ORDERED: ACETAMINOPHEN/CAFFEINE/BUTALBITAL 1 TAB PO ONE (08:57)
[2019-07-31] MEDS ORDERED: PT OWN MED DRAWER 7, Y5N ONE (09:36)
[2019-07-31] MEDS: metoPROLOL SUCCINATE 25 MG TAB.SR.24H (FP) PO SCH (09:41)
[2019-07-31] MEDS: ASPIRIN 81 MG CHEWABLE TABLETS PO SCH (09:41)
[2019-07-31] MEDS: CHOLESTYRAMINE/ASPARTAME 4 GM PACKET PO SCH ×2 (09:42→10:00)
[2019-07-31] MEDS: SODIUM CHLORIDE 0.45% 1,000 ML IV SCH (09:45)
--- NOTE | 2019-07-31 13:16 | PN ---
Teaching Attending Note Name of Resident: Den Viramontes ATTENDING PHYSICIAN STATEMENT I saw and evaluated the patient. I reviewed the resident's note and discussed the case with the resident. I agree with the resident's findings and plan as documented with exceptions below. SUBJECTIVE: Patient seen and examined. some diarrhea but improved, no fevers, chills or abdominal pain, tolerating diet well. OBJECTIVE: Vital Signs Period Temp Pulse Resp BP Sys/Martinez Pulse Ox Last 24 Hr 97.8 F-99.7 F 75-87 18-20 126-141/50-71 98 Intake & Output 07/28/19 07/29/19 07/30/19 07/31/19 23:59 23:59 23:59 23:59 Intake Total 801 145 9400 Output Total 4418 480 8203 Balance -920 5 200 General: sitting in bed, no acute distress Chest: CTAb, no rales or wheezing Abdomen;soft, NT throughout, ND, pos bowel sounds extremities: resolving ecchymosis, no edema Home Medications Medication Instructions Recorded Aspirin 81 mg PO DAILY #42 tab.chew 07/20/19 Cholestyramine/Aspartame 4 gm PO DAILY 07/20/19 [Cholestyramine Light Packet] Cyclobenzaprine HCl 10 mg PO TID 07/20/19 Hydrochlorothiazide 50 mg PO DAILY 07/20/19 Hydrocodone/Acetaminophen [[place] 1 each PO QID PRN 07/20/19 5-325 Tablet] Lisinopril [Prinivil] 10 mg PO DAILY 07/20/19 Metoprolol Succinate [Toprol Xl] 25 mg PO DAILY 07/20/19 Raloxifene HCl 60 mg PO DAILY 07/20/19 Rosuvastatin Calcium [Crestor] 5 mg PO DAILY 07/20/19 Zolpidem Tartrate 10 mg PO HS 07/20/19 Amox-Tr/K Cl [Augmentin 875-125mg 1 tab PO BID@0800,1730 tablet 07/31/19 Tablet -] Loperamide HCl [Imodium -] 2 mg PO DAILY #5 capsule 07/31/19 Meclizine HCl 12.5 mg PO TID PRN #10 tablet 07/31/19 Active Medications Acetaminophen (Tylenol -) 650 mg PO Q6H PRN PRN Reason: FEVER Last Admin: 07/31/19 04:09 Dose: 650 mg Amoxicillin/Clavulanate Potassium (Augmentin - 875mg Tablet) 1 tab PO BID@0800, 1730 [facility] Last Admin: 07/31/19 08:47 Dose: 1 tab Aspirin (Asa -) 81 mg PO DAILY [facility] Last Admin: 07/31/19 09:41 Dose: 81 mg Cholestyramine Resin (Questran Light Packet -) 4 gm PO DAILY [facility] Last Admin: 07/31/19 10:00 Dose: Not Given Cyclobenzaprine HCl (Flexeril -) 10 mg PO TID PRN PRN Reason: MUSCLE SPASMS Last Admin: 07/28/19 22:41 Dose: 10 mg Docusate Sodium (Colace -) 100 mg PO BID PRN PRN Reason: CONSTIPATION Last Admin: 07/29/19 10:00 Dose: 100 mg Sodium Chloride (1/2 Normal Saline) 1,000 mls @ 50 mls/hr IV ASDIR [facility] Last Admin: 07/31/19 09:45 Dose: 50 mls/hr Loperamide HCl (Imodium -) 2 mg PO ONCE ONE Stop: 07/31/19 14:16 Meclizine HCl (Antivert -) 12.5 mg PO TID [facility] Last Admin: 07/31/19 05:57 Dose: 12.5 mg Metoprolol Succinate (Toprol Xl -) 25 mg PO DAILY [facility] Last Admin: 07/31/19 09:41 Dose: 25 mg Ondansetron HCl (Zofran -) 4 mg PO BID PRN PRN Reason: NAUSEA Last Admin: 07/28/19 18:39 Dose: 4 mg Oxycodone HCl (Roxicodone -) 5 mg PO Q4H PRN PRN Reason: PAIN 1-5 Last Admin: 07/31/19 09:42 Dose: 5 mg Polyethylene Glycol (Miralax (For Daily Use) -) 17 gm PO DAILY PRN PRN Reason: CONSTIPATION Last Admin: 07/22/19 10:33 Dose: 17 gm Rosuvastatin Calcium (Crestor -) 5 mg PO HS [facility] Last Admin: 07/30/19 21:32 Dose: Not Given Zolpidem Tartrate (Ambien -) 5 mg PO HS PRN PRN Reason: INSOMNIA Last Admin: 07/30/19 21:32 Dose: 5 mg Microbiology 07/31/19 06:00 Stool Clostridioides difficile Antigen - Final 07/31/19 06:00 Stool Clostridioides difficile Toxin Assay - Final 07/24/19 07:20 Blood - Peripheral Venous Blood Culture - Final NO GROWTH AFTER 5 DAYS INCUBATION 07/24/19 02:20 Blood - Peripheral Venous Blood Culture - Final NO GROWTH AFTER 5 DAYS INCUBATION 07/24/19 04:07 Urine - Urine Styles Urine Culture - Final Klebsiella Pneumoniae ASSESSMENT AND PLAN: 79 year old female with chronic back pain, lumbar stenosis, osteoporosis, frequent falls, on chronic opiates and ambien presents after mechanical fall, missing a step and landing on her hip. No head injury/LOC. No preceding CP/ palpitations/lightheadedness. -Left superior/inferior pubic rami fracture -Mechanical fall -Acute on chronic anemia, suspect from blood loss from pelvic hematoma, compounded by hemodilution (IV fluids). -Sepsis, RLL PNA(?Hospital acquired vs aspiration), vs complicated UTI in the setting of urinary retention -Urinary retention, suspect from poor ambulation/narcotics -Hypokalemia -Diarrhea -reported h/o Microscopic colitis, on budesonide [place] -HTN -HLD Plan: Fevers, resolved, ID input noted, On augmentin h/h stable. ASA resumed LE duplex neg patient reports diarrhea, none charted Stool C difficile neg. tolerating diet. suspect abx mediated vs from laxatives. Loperamide prn patient recommended holding or WI steroids and following up with GI if recurrent concerns. OOB, PT, pain control Continue Crestor/lisinopril/Toprol XL. Flexeril/oxycodone prn for pain. Replete K prn Failed voiding trial, will need re-attempt once better ambulation in the rehab and outpatient urology follow up. dispo dc to rehab today Plan discussed with patient in detail, all questions answered.
[2019-07-31] MEDS ORDERED: LOPERAMIDE HCL 2 MG CAPSULE PO ONE (14:15)
--- NOTE | 2019-07-31 16:22 | DS ---
Physical Exam: SUBJECTIVE: Patient seen and examined at the bedside. Patient stated she was doing well. Continued to have some diarrhea but was improved from the previous day. Stated that she had some pain in her L hip but was able to work with PT today. Denied cp, sob, abd pain, n/v/c/d, fever, chills, headache, numbness, tingling. OBJECTIVE: Vital Signs Period Temp Pulse Resp BP Sys/Martinez Pulse Ox Last 24 Hr 97.8 F-99.7 F 75-87 18-20 126-141/50-71 98 PHYSICAL EXAM GENERAL: Pleasant, well-appearing elderly female. NAD. Cooperative. AAOx3. HEENT: Atraumatic, normocephalic. NECK: Trachea midline, full range of motion, supple. LUNGS: Breath sounds equal, clear to auscultation bilaterally, no wheezes, no crackles, no accessory muscle use. HEART: Regular rate and rhythm, S1, S2 without murmur, rub. ABDOMEN: Soft, non-tender nondistended, normoactive bowel sounds, no guarding, no rebound, no masses. EXTREMITIES: 2+ pulses, warm, well-perfused, no edema. Improved range of motion. Slight pain to touch on the L lateral malleolus. NEUROLOGICAL: Cranial nerves II through XII grossly intact. Decreased strength on the LLE in flexion/extension, rotation, secondary to pain. No sensory deficits. PSYCH: Normal mood, normal affect. SKIN: Warm, dry, normal turgor, no rashes or lesions noted. LABS HOSPITAL COURSE: Connie Red is a 79 year old female with a past medical history of HTN, chronic back pain, lumbar stenosis, osteoporosis, frequent falls (last one in 2017 requiring vertebroplasty sx), on chronic opiates and ambien admitted after witnessed mechanical fall resulting in L pubic ramus fracture. CT pelvis showed a comminuted fracture through the medical portion of the L pubic ramus near the symphysis pubis and hyperdense soft tissue mass superior and to the right of the fracture suspicious for a hematoma. Orthopedic surgery was consulted and recommended PT, weight bearing as tolerated, pain management, SNF placement, DVT prophylaxis (aspirin) for [address] showed an expanded hematoma with no active hemorrhage and ortho stated that she is still clear for orthopedic perspective and that a repeat pelvis x-ray should be performed in 4 weeks. Hematoma may take up to 8 weeks to heal. Patient can continue her home oxycodone dose for pain. While hospitalized, the patient had urinary retention due to immobility and was found with a UTI for which she was treated with antibiotics and will complete antibiotics in the SNF. Patient continued to have retention and a ramirez was placed which the patient will have in SNF. Voiding trial to be done 5 days into SNF. If ramirez cannot be succesfully removed or patient continued to have retention, she will need to follow up with urology. Patient had diarrhea while in hospital, c diff was negative. Patient can have Imodium while in SNF to treat diarrhea. Patient had leg swelling and duplex was negative for DVT. Patient will follow up with her primary care provider, orthopedic surgeon, and urologist outpatient. Patient and family were notified of the plan, were in agreement, and reiterated the plan. Patient was discharged to SNF in stable medical condition. Date of Admission:07/20/19 Date of Discharge: 07/31/19 Minutes to complete discharge: 35 Discharge Summary Problems reviewed: Yes Reason For Visit: INABILITY TO AMBULATE DUE TO HIP,FRACTURE OF PUBIC Condition: Stable - Instructions Diet, Activity, Other Instructions: You were admitted for after you had a fall and were found to have a fracture in your pubic (hip) bone. X-rays and a CT scan of your hip showed a fracture in the left part of your pubic bone. You were seen by the orthopedic surgeon who stated that you do not need any surgery. The orthopedic surgeon recommended that you have physical therapy at a facility, you bear weight on your feet as tolerated, you take pain medications as necessary, you take an aspirin to prevent clots for 6 weeks, and you follow up with an orthopedic surgeon within 2 weeks. You were seen by physical therapy who after assessing you continue to recommend that you go to a facility for physical therapy and rehab. While you were here, you had difficulty voiding your bladder and developed a urinary tract infection for which you were treated and will need to complete a course of antibiotics. Due to your continued difficulty voiding your bladder, you had a ramirez catheter placed which you will continue to have at the skilled nursing and follow up with a urologist. You will have a voiding trial (ramirez catheter removal) in 5 days if you are moving around well. MEDICATIONS START taking Aspirin 81 mg for 6 weeks. You last dose will be on September 03 2019. START taking Augmentin 875mg for 4 more days. You last dose will be August 03, 2019. You may start taking Immodium 2g once a daily as needed for diarrhea over next 2 -3 days. However stop if belly pain, fevers, bloody diarrhea or new concerns. Continue to take all of your home medications as prescribed. REFERRALS/FOLLOW UP: CBC in 1 week at the rehab Please follow up with your primary care physician within 1 week. Please follow up with an orthopedic surgeon within 2 weeks. If you stay in the [facility], we have provided a referral for Dr. Calvo, who saw you in the hospital. You will need a repeat pelvic x-ray in 4 weeks. Please follow up with a urologist, Dr. Bernard Herrera, within 1 week if you are unable to have your ramirez catheter removed. Please follow up with your machine bunch maker if recurrent diarrhea or new concerns. SPECIAL INSTRUCTIONS Please try a voiding trial (ramirez catheter removal) in 5-7 days once you are walking better and moving around more. If you have any symptoms of fever, chills, chest pain, shortness of breath, numbness of your leg, extremity swelling, or any other general feelings of unwellness, please call 911 or go to your nearest emergency room. If you notice any new belly pain, fevers, bloody diarrhea or worsening diarrhea , please stop immodium and contact your doctor or come to emergency room rightaway Referrals: Bernard Herrera MD [Staff Physician] - 1 Week Esa Calvo MD [Staff Physician] - 2 Weeks Disposition: [facility] - Home Medications Comprehensive Discharge Medication List: Ambulatory Orders Aspirin 81 mg PO DAILY #42 [email or web address] 07/20/19 Cholestyramine/Aspartame [Cholestyramine Light Packet] 4 gm PO DAILY 07/20/19 Cyclobenzaprine HCl 10 mg PO TID 07/20/19 Hydrochlorothiazide 50 mg PO DAILY 07/20/19 Hydrocodone/Acetaminophen [[place] 5-325 Tablet] 1 each PO QID PRN 07/20/19 Lisinopril [Prinivil] 10 mg PO DAILY 07/20/19 Metoprolol Succinate [Toprol Xl] 25 mg PO DAILY 07/20/19 Raloxifene HCl 60 mg PO DAILY 07/20/19 Rosuvastatin Calcium [Crestor] 5 mg PO DAILY 07/20/19 Zolpidem Tartrate 10 mg PO HS 07/20/19 Amox-Tr/K Cl [Augmentin 875-125mg Tablet -] 1 tab PO BID@0800,1730 tablet 07/31 Loperamide HCl [Imodium -] 2 mg PO DAILY #5 capsule 07/31/19 Meclizine HCl 12.5 mg PO TID PRN #10 tablet 07/31/19 This patient is new to me today: No Emergency Visit: Yes ED Registration Date: 07/20/19 Care time: The patient presented to the Emergency Department on the above date and was hospitalized for further evaluation of their emergent condition. Critical Care patient: No - Discharge Referral Referred to [facility] Med P.C.: No
== END 2019-07-31 15:52 | DRG 535 ==
LOC: JER 21:25 → JERBED 07-20 01:46 → J8W 07-20 17:59
PROVIDERS: ADMIT Internal Medicine; ATTEND Hospitalist
PROC: 30233N1 Transfusion of Nonautologous Red Blood Cells into Peripheral Vein, Percutaneous Approach (ICD-10-PCS; principal; 2019-07-26)
DX: S32.592A Other specified fracture of left pubis, initial encounter for closed fracture (principal); A41.59 Other Gram-negative sepsis; D62 Acute posthemorrhagic anemia; N39.0 Urinary tract infection, site not specified; J98.11 Atelectasis; N13.30 Unspecified hydronephrosis; S32.512A Fracture of superior rim of left pubis, initial encounter for closed fracture; I10 Essential (primary) hypertension; M81.0 Age-related osteoporosis without current pathological fracture; D72.829 Elevated white blood cell count, unspecified; M48.061 Spinal stenosis, lumbar region without neurogenic claudication; E78.5 Hyperlipidemia, unspecified; N94.89 Other specified conditions associated with female genital organs and menstrual cycle; E87.6 Hypokalemia; R33.9 Retention of urine, unspecified; R19.7 Diarrhea, unspecified; W19.XXXA Unspecified fall, initial encounter; Y93.9 Activity, unspecified; Y92.89 Other specified places as the place of occurrence of the external cause; Y99.9 Unspecified external cause status
CPT/HCPCS: 36415; 36430; 70450-TC; 71045-TC-FY; 71275-TC; 72125-TC; 72192-TC; 73523-TC-FY; 73552-TC-LT-FY; 74019-TC-FY; 74176-TC; 74177-TC; 80048; 80053; 81003; 83605; 83735; 85025; 85027; 86850; 86900; 86901; 86922; 87040; 87086; 87186; 87324; 87449; 87804; 93005; 93010; 93971-TC; 97116-GP; 97162-GP; 99285-25; J1644; J7030; P9058; Q9967